=== PATIENT | male | born 1955 | race Caucasian/White ===

== ENCOUNTER 2020-04-15 11:47 | Outpatient (REF) | payer MEDICARE, SELFPAY ==
[2020-04-15 14:14] LABS: Alanine Aminotransferase 75 U/L (0-40); Albumin Level 4.7 g/dL (3.5-5.0); Alkaline Phosphatase 102 U/L (39-117); Anion Gap 15 (12-20); Aspartate Amino Transferase 46 U/L (5-37); Bilirubin Direct 0.3 mg/dL (0.0-0.5); Bilirubin Total 0.6 mg/dL (0.0-1.0); Blood Urea Nitrogen 18 mg/dL (9-16); Carbon Dioxide 27 mmol/L (22-29); Chloride 100 mmol/L (96-108); Estimated Glomerular Filt Rate > 60; Potassium 5.2 mmol/l (3.3-5.1); Sodium 137 mmol/L (135-145); Total Protein 8.2 g/dL (6.5-8.0)
== END 2020-04-15 11:48 | disposition home or self-care (01) ==
LOC: HO.LAB 11:47
PROVIDERS: PCP Family Medicine; Visit Provider Family Medicine
DX: R79.89 Other specified abnormal findings of blood chemistry (principal); I10 Essential (primary) hypertension
CPT/HCPCS: 80051; 80076; 82565; 84520

== ENCOUNTER 2020-11-04 12:10 | Outpatient (REF) | payer MEDICARE, SELFPAY ==
[2020-11-04 14:06] LABS: Anion Gap 15 (12-20); Blood Urea Nitrogen 16 mg/dL (9-16); Calcium 9.7 mg/dL (8.4-10.2); Carbon Dioxide 28 mmol/L (22-29); Chloride 100 mmol/L (96-108); Estimated Glomerular Filt Rate > 60; Glucose Random 103 mg/dL (60-115); Potassium 4.5 mmol/L (3.3-5.1); Sodium 138 mmol/L (135-145)
== END 2020-11-04 12:11 | disposition home or self-care (01) ==
LOC: HO.LAB 12:10
PROVIDERS: PCP Family Medicine; Visit Provider Internal Medicine Cardiovascular Disease
DX: I48.0 Paroxysmal atrial fibrillation (principal); I10 Essential (primary) hypertension; Z79.899 Other long term (current) drug therapy
CPT/HCPCS: 36415; 80048; 93005

== ENCOUNTER 2021-03-19 08:39 | Outpatient (REF) | payer MEDICARE, SELFPAY ==
[2021-03-19 09:30] LABS: Alanine Aminotransferase 85 U/L (0-40); Albumin Level 4.3 g/dL (3.5-5.0); Alkaline Phosphatase 92 U/L (39-117); Aspartate Amino Transferase 60 U/L (5-37); Bilirubin Direct 0.2 mg/dL (0.0-0.5); Bilirubin Total 0.3 mg/dL (0.0-1.0); Iron 74 mcg/dL (45-160); Percent Iron Saturation 21 % (15-50); Total Iron Binding Capacity 349 mcg/dL (228-428); Total Protein 7.5 g/dL (6.5-8.0); Unsaturated Iron Binding 275 ug/dL
[2021-03-19 09:53] LABS: Ferritin 441 ng/mL (20-250); TSH reflex Free T4 2.54 uIU/mL (0.32-4.0)
[2021-03-20 14:56] LABS: Immunoglobulin A 393 mg/dL (70-320)
[2021-03-24 10:06] LABS: Gliadin Deamidated IgA Ab 30.4 U/mL; Gliadin Deamidated IgG Ab 15.6 U/mL; Transglutaminase Ab IgG <1.0 U/mL; Transglutaminase IgA <1.0 U/mL
[2021-03-27 11:26] LABS: Endomysial IgA Antibody Negative (Negative)
== END 2021-03-19 08:40 | disposition home or self-care (01) ==
LOC: HO.LAB 08:39
PROVIDERS: PCP Family Medicine; Visit Provider Internal Medicine
DX: K76.0 Fatty (change of) liver, not elsewhere classified (principal); R74.8 Abnormal levels of other serum enzymes; R53.83 Other fatigue; K58.2 Mixed irritable bowel syndrome
CPT/HCPCS: 36415; 80076; 82728; 82784; 83516; 83540; 84443; 86255; 86256

== ENCOUNTER 2021-04-21 11:45 | Day surgery (SDC) | payer MEDICARE, SELFPAY ==
[2021-04-15 13:23] VITALS: BMI 30.9
--- NOTE | 2021-04-18 11:05 | HO.ANESPROP2 ---
Documented by User: Patricia Brown NP 04/18/21 11:06 HPI - Anesthesia Eval Consult details Narrative: 65yo M for Upper Endoscopy Xarelto for afib PMFSH Active Problems Active Problems: All Active Problems (Updated 11/04/20 @ 12:40 by Silvestre Macias MD) HTN (hypertension) (Acute) Paroxysmal atrial fibrillation (Acute) Past Medical History Medical History (Updated 04/18/21 @ 11:06 by Patricia Brown NP) Depression HTN (hypertension) IBS (irritable bowel syndrome) Paroxysmal atrial fibrillation Family History Family History Father Diabetes Mother No problems noted. Surgical History Surgical History History of cardiac radiofrequency ablation Hx of sinus surgery Hx of tonsillectomy Social History Social History Patient Tobacco Use Status: Former Tobacco user Use of substances other than those prescribed or required for medical reasons: No Have you been hit, kicked, punched, or otherwise hurt by someone within the past year? If so, by whom?: No Are you DNR?: No Advance Directives: No Advance Directives Information Provided: Yes Recently lost weight without trying: No Nutrition Risks: No Nutritional Risk Meds Allergies Allergy/AdvReac Type Severity Reaction Status Date / Time latex [LATEX] Allergy Intermediate RASH Verified 04/21/21 13:25 Home Medications Medication Instructions Recorded Confirmed Last Taken Type lisinopril 20 mg tablet 20 mg PO DAILY 11/04/20 11/04/20 04/21/21 History metoprolol succinate 50 mg 50 mg PO DAILY 11/04/20 11/04/20 04/21/21 History tablet,extended release 24 hr sertraline 50 mg tablet 50 mg PO DAILY 11/04/20 11/04/20 04/21/21 History Exam Exam Date and Time: April 18, 2021 1105 Height,Weight and Vital Signs: Height 6 ft 0.5 in Weight 104.78 kg Pertinent Lab Results Pertinent Lab Results: Laboratory Tests 05/05/18 11/04/20 09:23 13:26 WBC 5.4 Hgb 15.0 Hct 43.2 Plt Count 179 Sodium 138 Potassium 4.5 Chloride 100 Carbon Dioxide 28 BUN 16 Creatinine 1.06 Narrative Narrative: EKG 10/2020 Sinus bradycardia at 51 beats per minute with normal axis and normal intervals Assessment and Plan Assessment Anesthesia Assessment: Chart Reviewed Documented by User: Vilma Shane MD 04/21/21 13:53 COUNT INCLUDES THE [facility] Past Medical History Medical History (Updated 04/18/21 @ 11:06 by Patricia Brown NP) Depression HTN (hypertension) IBS (irritable bowel syndrome) Paroxysmal atrial fibrillation Family History Family History Father Diabetes Mother No problems noted. Family history of problems with anesthesia: No Surgical History Surgical History History of cardiac radiofrequency ablation Hx of sinus surgery Hx of tonsillectomy History of Problems with Anesthesia: No Social History Social History Patient Tobacco Use Status: Former Tobacco user Use of substances other than those prescribed or required for medical reasons: No Have you been hit, kicked, punched, or otherwise hurt by someone within the past year? If so, by whom?: No Are you DNR?: No Advance Directives: No Advance Directives Information Provided: Yes Recently lost weight without trying: No Nutrition Risks: No Nutritional Risk Meds Allergies Allergy/AdvReac Type Severity Reaction Status Date / Time latex [LATEX] Allergy Intermediate RASH Verified 04/21/21 13:25 Home Medications Medication Instructions Recorded Confirmed Last Taken Type lisinopril 20 mg tablet 20 mg PO DAILY 11/04/20 11/04/20 04/21/21 History metoprolol succinate 50 mg 50 mg PO DAILY 11/04/20 11/04/20 04/21/21 History tablet,extended release 24 hr sertraline 50 mg tablet 50 mg PO DAILY 11/04/20 11/04/20 04/21/21 History Exam Airway Mallampati Class: II (Poor dentition) TM Dist: >3cm Neck ROM: Full Heart: rrr Lungs: cta Assessment and Plan Assessment Anesthesia Assessment: Anesthesia Plan Discussed and Chart Reviewed Final Anesthetic Review Family History of Problems with Anesthesia: No History of Problems with Anesthesia: No NPO: Yes ASA Class: III Final Preanesthetic Review: No Changes in Pt Med Stat, Meds/Allgs Chart Reviewed and Consent Obtained/Reviewed Patient Risk: Intermediate Procedure Risk: Intermediate Anesthetic Plan Anesthetic Plan: MAC: Disposition: Standard PACU
[2021-04-21 12:54] VITALS: PULSE 58; RESP 18; TEMP 36.6; O2SAT 97; BMI 30.1
[2021-04-21] MEDS: Lactated Ringers 1,000 ML 100 ML IVCONT (13:26)
[2021-04-21 14:55] VITALS: BP 105/53; PULSE 55; RESP 15; TEMP 37.7; O2SAT 97
--- NOTE | 2021-04-21 14:59 | P.BOP_ITS ---
Brief Operative Note Date of Service: 04/21/21 Pre-op diagnosis: R/O Celiac disease Post-op diagnosis: other (Gastritis, GERD, Hiatal hernia) Procedure: EGD with biopsies Surgeon: Jayson Carlson Anesthesia: MAC Was an Frame Pulley Mortising Machine Operator used for this Procedure?: No Estimated blood loss (mL): 2.0 Pathology: other (A. Descending duodenum B. Gastric antrum C. EG Junction at 40cm) Condition: stable Disposition: PACU
[2021-04-21 15:10] VITALS: BP 134/73; PULSE 54; RESP 18; TEMP 37.2; O2SAT 96
--- NOTE | 2021-04-21 20:11 | OP_ITS ---
SURGEON: Jayson Carlsno MD INDICATIONS: The patient presents for evaluation of irregular bowel movements, abdominal discomfort, and elevated celiac disease laboratory. Full consent has been obtained from him for this, including risks of bleeding and perforation. PREOPERATIVE DIAGNOSIS: POSTOPERATIVE DIAGNOSIS: PROCEDURE PERFORMED: Esophagogastroduodenoscopy with biopsies. ESTIMATED BLOOD LOSS: COMPLICATIONS: ANESTHESIA: Monitored anesthesia care. ASSISTANTS: SPECIMENS: PREOPERATIVE DIAGNOSES: Irritable bowel syndrome and irregular bowel movements, abdominal discomfort, and abnormal celiac disease laboratory. POSTOPERATIVE DIAGNOSES: Irritable bowel syndrome and irregular bowel movements, abdominal discomfort, and abnormal celiac disease laboratory, small hiatal hernia, gastroesophageal reflux, gastritis, rule out celiac disease. DESCRIPTION OF PROCEDURE: The patient was placed in the left lateral decubitus position. The Olympus video gastroscope was passed in the posterior oropharynx and upper esophagus under direct vision. The scope was passed slowly into the distal esophagus. The gastroesophageal junction appeared at 40 cm. This area was notable for some edema, friability, erythema, and some slightly irregular margins at the EG junction. There was no definite Carl's esophagus. The scope entered into the stomach. There was a small hiatal hernia. The scope was advanced to pylorus and the duodenum was cannulated to the descending portion. The duodenum including the bulb appeared normal without mass or ulceration. Biopsies were obtained from the second and third portions of duodenum. The scope was withdrawn back in the stomach. The gastric antrum had areas of erythema, edema, less than 10 mm erosions, and some friability. There were no ulcerations, masses, nor other abnormalities. There was good peristalsis. The scope was retroflexed visualizing the proximal stomach carefully which appeared normal, without any sign of mass or ulceration. The scope was straightened. Biopsies were obtained from the gastric antrum. Scope was withdrawn back into the esophagus. Biopsies were obtained at the EG junction at 40 cm. Proximal to this, the esophageal mucosa appeared normal. The scope was withdrawn from the patient. He tolerated the procedure well and was returned to the recovery area in stable condition. IMPRESSION: 1. Erosive gastritis. 2. Rule out celiac disease. 3. Hiatal hernia, gastroesophageal reflux. PLAN: The results of the biopsies will be checked. Given these findings, I shall start him on a course of omeprazole 20 mg daily. If the duodenal biopsies do show evidence of celiac disease, he would then start a gluten free diet. In the meantime, he will continue to try to watch his diet carefully and stay on a lactose-free diet. He is also using Metamucil and a stool softener. He is scheduled for an abdominal ultrasound later this month as well. He will be seen in followup in 2021. This has been discussed with his . MD AUREA Hopper/ALEX / [id number]
== END 2021-04-21 15:59 | disposition home or self-care (01) ==
PROVIDERS: PCP Family Medicine; Visit Provider Internal Medicine
PROC: 0DJ08ZZ Inspection of Upper Intestinal Tract, Via Natural or Artificial Opening Endoscopic (ICD-10-PCS; CPT 43235; principal; 2021-04-21 13:20)
DX: R19.4 Change in bowel habit (principal); R10.9 Unspecified abdominal pain; R76.8 Other specified abnormal immunological findings in serum; K58.9 Irritable bowel syndrome, unspecified; K21.9 Gastro-esophageal reflux disease without esophagitis; K29.50 Unspecified chronic gastritis without bleeding; K44.9 Diaphragmatic hernia without obstruction or gangrene; I10 Essential (primary) hypertension; I48.0 Paroxysmal atrial fibrillation; Z79.01 Long term (current) use of anticoagulants; Z79.899 Other long term (current) drug therapy; Z91.040 Latex allergy status; Z87.891 Personal history of nicotine dependence
CPT/HCPCS: 43239; 88305; 88342

== ENCOUNTER 2021-05-05 10:52 | Outpatient (REF) | payer MEDICARE, SELFPAY ==
--- NOTE | ~2021-05-05 | US_ITS ---
EXAMINATION: US COMPLETE ABDOMEN WITH LIVER ELASTOGRAPHY CLINICAL INFORMATION: Fatty liver COMPARISON: None. TECHNIQUE: Real-time imaging of the abdominal viscera. Noninvasive ultrasound liver fibrosis assessment is performed using Margret ElastPQ point quantification shear wave elastography (pSWE) with a C5-2 MHz transducer. Multiple elastography samples are obtained. FINDINGS: PANCREAS: Normal. The visualized pancreatic head and body are normal in appearance. The remainder of the pancreas is obscured from visualization by the overlying bowel gas. ABDOMINAL AORTA: The proximal, middle, and distal aortic segments are normal in caliber. INFERIOR VENA CAVA: Visualized portions are normal. LIVER: The liver demonstrates normal size, contour and increased echogenicity. No focal lesion or intrahepatic biliary duct dilatation. The right lobe measures 16.0 cm in length. The left lobe measures 12.0 cm in length. Portal flow is towards the liver (hepatopetal). Shear wave liver elastography median stiffness is 1.86 m/s (reference: normal median stiffness is 1.3 m/s or less). IQR/median stiffness to assess sampling precision is 0.10 (reference: good quality data set is IQR/median stiffness of 0.15 or less). GALLBLADDER: Normal. The gallbladder is physiologically distended without evidence of stones, sludge, polyps, wall thickening or pericholecystic fluid. COMMON BILE DUCT: Normal in caliber measuring 0.2 cm in diameter. RIGHT KIDNEY: Multiple simple renal cysts. No hydronephrosis. No renal calculi or focal parenchymal lesions. The kidney measures 12.0 cm in maximum dimension. LEFT KIDNEY: 0.9 cm simple renal cyst in the upper pole. No hydronephrosis. No renal calculi or focal parenchymal lesions. The kidney measures 12.0 cm in maximum dimension. SPLEEN: Normal. The spleen measures 11.0 cm in maximum dimension. FREE FLUID: None. US/US abdomen comp w elastography IMPRESSION: 1. Increased echogenicity of the liver. 2. Liver elastography: Measurements are suggestive of compensated advanced chronic liver disease but need further test for confirmation. 3. Bilateral simple renal cysts, no further follow-up is required. REFERENCE: Society of Radiologists in Ultrasound Liver Stiffness Thresholds (2020): LIVER STIFFNESS THRESHOLDS: *Liver Stiffness equal or less than 1.3 m/s: High probability of being normal. *Liver Stiffness less than 1.7 m/s: In the absence of other known clinical signs, rules out compensated advanced chronic liver disease. *Liver Stiffness 1.7-2.1 m/s: Suggestive of compensated advanced chronic liver disease but need further test for confirmation. *Liver Stiffness over 2.1 m/s: Rules in compensated advanced chronic liver disease. *Liver Stiffness over 2.4 m/s: Suggestive of clinically significant portal hypertension. QUALITY OF DATA SET: *IQR/Median value equal or less than 0.15 implies a quality data set. *IQR/Median value over 0.15 implies a poor quality data set. SIGNIFICANT CHANGE FROM PRIOR EXAM: Significant change if liver stiffness measurement is 10% or greater from prior exam. OTHER CONSIDERATIONS: The stage of liver fibrosis may be overestimated in the setting of acute hepatitis, liver inflammation, elevated liver function tests, hepatic vascular congestion, obstructive cholestasis, non-fasting state, and infiltrative diseases such as amyloidosis and lymphoma. In some patients with NAFLD, the liver stiffness thresholds for compensated advanced chronic liver disease may be lower. In causes other than viral hepatitis and NAFLD, liver stiffness thresholds are not well established.
== END 2021-05-05 10:53 | disposition home or self-care (01) ==
LOC: HO.US 10:52
PROVIDERS: PCP Family Medicine; Visit Provider Internal Medicine
DX: K76.0 Fatty (change of) liver, not elsewhere classified (principal)
CPT/HCPCS: 76705; 76981

== ENCOUNTER → 2021-05-08 14:12 | Outpatient (BNVA) | payer MEDICARE, SELFPAY | PROVIDERS: PCP Family Medicine; Visit Provider Internal Medicine | DX: I48.0 Paroxysmal atrial fibrillation (principal); Z51.81 Encounter for therapeutic drug level monitoring; Z79.01 Long term (current) use of anticoagulants | CPT/HCPCS: 85610; 99202 ==

== ENCOUNTER → 2021-05-21 08:27 | Outpatient (BNVA) | payer MEDICARE, SELFPAY | PROVIDERS: PCP Family Medicine; Visit Provider Internal Medicine | DX: I48.0 Paroxysmal atrial fibrillation (principal); Z51.81 Encounter for therapeutic drug level monitoring; Z79.01 Long term (current) use of anticoagulants | CPT/HCPCS: 85610; 99211 ==

== ENCOUNTER → 2021-05-26 08:42 | Outpatient (BNVA) | payer MEDICARE, SELFPAY | PROVIDERS: PCP Family Medicine; Visit Provider Internal Medicine | DX: I48.0 Paroxysmal atrial fibrillation (principal); Z51.81 Encounter for therapeutic drug level monitoring; Z79.01 Long term (current) use of anticoagulants | CPT/HCPCS: 85610; 99211 ==

== ENCOUNTER → 2021-05-29 08:16 | Outpatient (REF) | payer MEDICARE, SELFPAY ==
--- NOTE | 2021-05-29 08:19 | CA_ITS ---
Transthoracic Echocardiogram Patient (Last, First, Middle): Ori Tidwell J Gender: Male Date of : 1955 Age: 65 Procedure Date: 05/29/2021 Procedure Type: Transthoracic Echocardiogram Location: OP Height: 185.42 cm Weight: 102.06 kg BSA: 2.26 m2 Heart Rate: bpm BP: 127 / 78 mmHg Sewing Machine Attachment Tester: [id number] Referring MD: Silvestre Macias MD Symptoms: I48.0 - Paroxysmal atrial fibrillation Study Quality: Fair ECG Rhythm: Sinus Conclusions: - The left ventricular systolic function is normal. The calculated ejection fraction is 65% by biplane method. - [id number] basal septal hypertrophy. - There is mild mitral valve regurgitation. - There is mild tricuspid valve regurgitation. - Mild pulmonary hypertension is present. Findings Left Ventricle Normal left ventricular cavity size. The left ventricular systolic function is normal. The calculated ejection fraction is 65% by biplane method. There is no evidence of regional wall motion abnormalities. Diastolic function is normal for age. LV peak GLS -18.1%. [id number] basal septal hypertrophy. Right Ventricle Normal right ventricular cavity size and systolic function. Atria Both atria are normal in size. Aortic Valve There is a normal trileaflet aortic valve. There is no aortic valve stenosis. There is no aortic valve regurgitation. Mitral Valve The mitral valve appears normal. There is mild mitral valve regurgitation. There is no mitral valve stenosis. Pulmonic Valve The pulmonic valve was not well visualized. There is trace pulmonic valve regurgitation. Tricuspid Valve Normal tricuspid valve structure. There is mild tricuspid valve regurgitation. The right ventricular systolic pressure is 38 mmHg. Mild pulmonary hypertension is present. Great Vessels The aortic annulus, sinuses of valsalva, and asc aorta are normal in size. Venous The inferior vena cava is normal in size and collapses greater than 50% with inspiration. Pericardium/Pleural There is no evidence of pericardial effusion. Prior Study Comparison No significant change compared to prior study dated: 02/03/2017. Measurements 2D Linear Measurements IVSd: 1.48 0.6-0.9/0.6-1.0 cm LVIDd: 4.82 3.9-5.3/4.2-5.9 cm LVIDd Index: 2.13 2.4-3.2/2.2-3.1 cm/m2 LVIDs: 2.81 2.0-3.6 cm LVPWd: 0.98 0.7-1.1 cm Ao Root: 2.80 2.1-3.5 cm LA Diam: 4.00 2.7-3.8/3.0-4.0 cm LAIDs Index: 1.77 1.5-2.3 cm/m2 LV Mass: 284.97 67-162/88-224 g LV Mass Index: 126.09 43-95/49-115 g/m2 LVOT Diam: 2.10 3.0+(-)1.3 cm 2D Systolic Function EF 4C: 67.90 >55% EF 2C: 61.30 >55% EF BiP: 64.70 >55% Mitral Valve MV Pk E: 1.05 MV PK A: 0.35 MV Decel Time: 217.00 E/A: 3.00 E'Lateral: 10.00 E'Medial: 6.64 E/E' Med: 15.80 E/E' Lat: 10.50 PHT: 63.00 MVA PHT: 3.49 Decel [place]: 4.87 Aortic Valve AoV Pk [place]: 1.56 AoV Pk Grad: 10.00 LVOT LVOT Pk [place]: 1.14 LVOT Mn [place]: 0.78 LVOT VTI: 0.25 LVOT Pk Grad: 5.00 LVOT Mn Grad: 3.00 LVOT Diam: 2.10 LVOT Area: 3.46 Diastolic Function MV Pk E: 1.05 MV Pk A: 0.35 E/A: 3.00 E'Medial: 6.64 E/E' Med: 15.80 E' Laterial: 10.00 E/E' Lat: 10.50 Right Ventricle TAPSE (mm): 2.23 TVS' [place]: 14.70 Tricuspid Valve TR Pk [place]: 2.97 TR Pk Grad: 35.00 RA Press: 3.00 RVSP: 38.00 Great Vessels Aorta Ao Root-2D: 2.80 2.0-3.7 cm Ao Asc: 3.60 2.1-3.4 cm Updated in Other Vendor System with Status of Final Perez Boyer MD electronically signed on 05/31/2021 1:05:19 PM with status of Final
== END ==
LOC: HO.CARD 08:16
PROVIDERS: Visit Provider Internal Medicine Cardiovascular Disease
DX: I48.0 Paroxysmal atrial fibrillation (principal)
CPT/HCPCS: 93306; 93356

== ENCOUNTER → 2021-06-02 08:27 | Outpatient (BNVA) | payer MEDICARE, SELFPAY | PROVIDERS: PCP Family Medicine; Visit Provider Internal Medicine | DX: I48.0 Paroxysmal atrial fibrillation (principal); Z51.81 Encounter for therapeutic drug level monitoring; Z79.01 Long term (current) use of anticoagulants | CPT/HCPCS: 85610; 99211 ==

== ENCOUNTER → 2021-06-05 08:28 | Outpatient (BNVA) | payer MEDICARE, SELFPAY | PROVIDERS: PCP Family Medicine; Visit Provider Internal Medicine | DX: I48.0 Paroxysmal atrial fibrillation (principal); Z51.81 Encounter for therapeutic drug level monitoring; Z79.01 Long term (current) use of anticoagulants | CPT/HCPCS: 85610; 99211 ==

== ENCOUNTER → 2021-06-06 08:56 | Outpatient (BNVA) | payer MEDICARE, SELFPAY | PROVIDERS: PCP Family Medicine; Visit Provider Internal Medicine Cardiovascular Disease | DX: I48.0 Paroxysmal atrial fibrillation (principal); I10 Essential (primary) hypertension | CPT/HCPCS: 93005; 99212 ==

== ENCOUNTER → 2021-06-16 08:20 | Outpatient (BNVA) | payer MEDICARE, SELFPAY | PROVIDERS: PCP Family Medicine; Visit Provider Internal Medicine | DX: I48.0 Paroxysmal atrial fibrillation (principal); Z51.81 Encounter for therapeutic drug level monitoring; Z79.01 Long term (current) use of anticoagulants | CPT/HCPCS: 85610; 99211 ==

== ENCOUNTER 2021-11-05 10:07 | Outpatient (REF) | payer MEDICARE, SELFPAY ==
--- NOTE | ~2021-11-05 | XR_ITS ---
EXAMINATION: XR HAND, LEFT CLINICAL INFORMATION: Laceration COMPARISON: None TECHNIQUE: PA, lateral, and oblique views of the left hand. FINDINGS: There is a comminuted fracture of the distal phalanx of the third finger. There is a volar displaced fracture fragment. There is overlying soft tissue swelling. No soft tissue foreign body is seen. No other fracture is seen. Joint spaces are normal. XR/XR hand LT min 3V IMPRESSION: Comminuted minimally displaced fracture of the distal phalanx of the left third finger and adjacent volar soft tissue swelling.
[2021-11-05 11:56] LABS: Alanine Aminotransferase 96 U/L (0-40); Albumin Level 4.2 g/dL (3.5-5.0); Alkaline Phosphatase 109 U/L (39-117); Aspartate Amino Transferase 90 U/L (5-37); Bilirubin Direct 0.3 mg/dL (0.0-0.5); Bilirubin Total 0.7 mg/dL (0.0-1.0); Iron 97 mcg/dL (45-160); Percent Iron Saturation 26 % (15-50); Total Iron Binding Capacity 367 mcg/dL (228-428); Total Protein 7.7 g/dL (6.5-8.0); Unsaturated Iron Binding 270 ug/dL
[2021-11-05 12:19] LABS: Ferritin 460 ng/mL (20-250)
[2021-11-10 06:11] LABS: FIB-ALT 81 U/L (9-46); FIB-Alpha-2-Macroglobulin 223 mg/dL (106-279); FIB-Apolipoprotein A1 181 mg/dL (94-176); FIB-GGT 192 U/L (3-70); FIB-Haptoglobin 117 mg/dL (43-212); FIB-Total Bilirubin 0.7 mg/dL (0.2-1.2); Liver Fibrosis Score 0.54; Liver Fibrosis Stage F2; Nec Inflam Act Grade A2; Nec Inflam Act Score 0.57
== END 2021-11-05 10:08 | disposition home or self-care (01) ==
LOC: HO.HMGCX 10:07
PROVIDERS: Absent Provider Internal Medicine; PCP Family Medicine; Visit Provider Physician Assistant
DX: S61.219A Laceration without foreign body of unspecified finger without damage to nail, initial encounter (principal); K76.0 Fatty (change of) liver, not elsewhere classified; R74.8 Abnormal levels of other serum enzymes
CPT/HCPCS: 36415; 73130; 80076; 81596; 82728; 83540

== ENCOUNTER 2021-11-10 07:03 | Day surgery (SDC) | payer MEDICARE, SELFPAY ==
[2021-10-09 11:26] VITALS: BMI 30.9
[2021-10-31 19:47] VITALS: BMI 29.4
--- NOTE | 2021-11-07 12:45 | HO.ANESPROP2 ---
Documented by User: Patricia Brown NP 11/07/21 12:47 HPI - Anesthesia Eval Consult details Narrative: 65yo M for Colonoscopy Eliquis for afib PMFSH Active Problems Active Problems: All Active Problems (Updated 10/31/21 @ 19:47 by Katia Arellano RN) Paroxysmal atrial fibrillation (Acute) HTN (hypertension) (Acute) Current use of anticoagulant therapy (Acute) Past Medical History Medical History Arthritis Current use of anticoagulant therapy Depression Fatty liver GERD (gastroesophageal reflux disease) HTN (hypertension) IBS (irritable bowel syndrome) Paroxysmal atrial fibrillation Family History Family History Father Diabetes Mother No problems noted. Family history of problems with anesthesia: No Surgical History Surgical History H/O colonoscopy History of cardiac radiofrequency ablation History of esophagogastroduodenoscopy (EGD) Hx of eye surgery Hx of sinus surgery Hx of tonsillectomy History of Problems with Anesthesia: No Social History Social History Housing: House Housing Other:: with spouse / children grown Alcohol intake: current (wine 2-3 glasses per evening / and occ beer ) Alcohol intake frequency: a few times a week Patient Tobacco Use Status: Former Tobacco user Quit Date: 1987 Use of substances other than those prescribed or required for medical reasons: No Are you DNR?: No Advance Directives: No Advance Directives Information Provided: No Advance Directives on File: No Recently lost weight without trying: No Nutrition Risks: No Nutritional Risk Current occupation: retiered Current occupational exposures/hazards: No Meds Allergies Allergy/AdvReac Type Severity Reaction Status Date / Time latex [LATEX] Allergy Intermediate RASH Verified 11/10/21 07:45 Home Medications Medication Instructions Recorded Confirmed Last Taken Type lisinopril 20 mg tablet 20 mg PO DAILY 11/04/20 10/09/21 04/21/21 History metoprolol succinate 50 mg 50 mg PO DAILY 11/04/20 10/09/21 11/10/21 History tablet,extended release 24 hr sertraline 50 mg tablet 50 mg PO DAILY 11/04/20 10/09/21 04/21/21 History acetaminophen 500 mg capsule 500 mg PO Q6H PAIN 05/08/21 10/31/21 Unknown History docusate sodium 100 mg PO DAILY 05/08/21 10/31/21 Unknown History omeprazole 20 mg capsule,delayed 20 mg PO DAILY 05/08/21 10/09/21 11/10/21 History release psyllium [Metamucil] 100 g PO BID 06/06/21 06/16/21 Unknown History Exam Exam Date and Time: November 07, 2021 1245 Height,Weight and Vital Signs: Height 6 ft 0.5 in Weight 99.79 kg Narrative Narrative: EKG 05/2021 sinus bradycardia at 55 beats per minute with normal axis and normal intervals with QRS duration of 96 milliseconds ECHO 05/2021 Conclusions: - The left ventricular systolic function is normal.? The ? calculated ejection fraction is 65% by biplane method. ? - Hloy-lp-avdkxreu basal septal hypertrophy. ? - There is mild mitral valve regurgitation.? - There is mild tricuspid valve regurgitation. ? - Mild pulmonary hypertension is present.? ? Assessment and Plan Assessment Anesthesia Assessment: Chart Reviewed Final Anesthetic Review Family History of Problems with Anesthesia: No History of Problems with Anesthesia: No Documented by User: Theresa Heath MD 11/10/21 08:18 [facility] Past Medical History Medical History Arthritis Current use of anticoagulant therapy Depression Fatty liver GERD (gastroesophageal reflux disease) HTN (hypertension) IBS (irritable bowel syndrome) Paroxysmal atrial fibrillation Family History Family History Father Diabetes Mother No problems noted. Surgical History Surgical History H/O colonoscopy History of cardiac radiofrequency ablation History of esophagogastroduodenoscopy (EGD) Hx of eye surgery Hx of sinus surgery Hx of tonsillectomy Social History Social History Housing: House Housing Other:: with spouse / children grown Alcohol intake: current (wine 2-3 glasses per evening / and occ beer ) Alcohol intake frequency: a few times a week Patient Tobacco Use Status: Former Tobacco user Quit Date: 1987 Use of substances other than those prescribed or required for medical reasons: No Are you DNR?: No Advance Directives: No Advance Directives Information Provided: No Advance Directives on File: No Recently lost weight without trying: No Nutrition Risks: No Nutritional Risk Current occupation: retiered Current occupational exposures/hazards: No Meds Allergies Allergy/AdvReac Type Severity Reaction Status Date / Time latex [LATEX] Allergy Intermediate RASH Verified 11/10/21 07:45 Home Medications Medication Instructions Recorded Confirmed Last Taken Type lisinopril 20 mg tablet 20 mg PO DAILY 11/04/20 10/09/21 04/21/21 History metoprolol succinate 50 mg 50 mg PO DAILY 11/04/20 10/09/21 11/10/21 History tablet,extended release 24 hr sertraline 50 mg tablet 50 mg PO DAILY 11/04/20 10/09/21 04/21/21 History acetaminophen 500 mg capsule 500 mg PO Q6H PAIN 05/08/21 10/31/21 Unknown History docusate sodium 100 mg PO DAILY 05/08/21 10/31/21 Unknown History omeprazole 20 mg capsule,delayed 20 mg PO DAILY 05/08/21 10/09/21 11/10/21 History release psyllium [Metamucil] 100 g PO BID 06/06/21 06/16/21 Unknown History Exam Airway Mallampati Class: II TM Dist: >3cm Neck ROM: Full Loose/Missing/Broken Teeth: No Heart: RRR Lungs: CTA Assessment and Plan Assessment Anesthesia Assessment: Anesthesia Plan Discussed Final Anesthetic Review NPO: Yes ASA Class: III Final Preanesthetic Review: Meds/Allgs Chart Reviewed, Consent Obtained/Reviewed and Anes Risks/Benef Reviewed Patient Risk: Intermediate Procedure Risk: Low Anesthetic Plan Anesthetic Plan: MAC: Disposition: Standard PACU
[2021-11-10 07:29] VITALS: BP 145/91; PULSE 66; RESP 18; TEMP 37; O2SAT 97
[2021-11-10] MEDS: Lactated Ringers 1,000 ML 100 ML IVCONT (07:32)
[2021-11-10 09:23] VITALS: BP 80/51; PULSE 53; RESP 16; TEMP 36.3; O2SAT 95
--- NOTE | 2021-11-10 09:28 | PM.OP ---
Brief Operative Note Date of Service: 11/10/21 Pre-op diagnosis: Screening Post-op diagnosis: other (Colon polyps) Procedure: Colonoscopy to the cecum and TI with bx/removal of polyps Surgeon: Jayson Carlson Anesthesia: MAC Was an Contract Post Office Clerk used for this Procedure?: No Estimated blood loss (mL): 2.0 Pathology: other (A. Ascending colon polyp B. Polyp at 50cm C. Polyp at 20cm) Condition: stable Disposition: PACU
[2021-11-10 09:38] VITALS: BP 93/60; PULSE 62; RESP 17; O2SAT 94
[2021-11-10 09:52] VITALS: BP 104/64; PULSE 58; RESP 18; TEMP 36.3; O2SAT 97
--- NOTE | 2021-11-10 12:16 | OP_ITS ---
SURGEON: Jayson Carlson MD INDICATIONS: The patient presents for evaluation of colorectal cancer screening and personal history of tubular adenoma of the colon. Full consent has been obtained from him for this, including risks of bleeding and perforation. PREOPERATIVE DIAGNOSIS: POSTOPERATIVE DIAGNOSIS: PROCEDURE PERFORMED: Colonoscopy to the cecum and terminal ileum with biopsy and removal of polyps. ESTIMATED BLOOD LOSS: COMPLICATIONS: ANESTHESIA: Monitored anesthesia care. ASSISTANTS: SPECIMENS: PREOPERATIVE DIAGNOSES: Colorectal cancer screening and personal history of tubular adenoma of the colon. POSTOPERATIVE DIAGNOSES: Colorectal cancer screening and personal history of tubular adenoma of the colon, small colon polyps, mild diverticulosis, internal hemorrhoids. DESCRIPTION OF PROCEDURE: The patient was placed in the left lateral decubitus position. The digital rectal exam revealed no abnormalities. The Olympus video pediatric colonoscope was entered into the rectum and advanced easily to the cecum. Once in the cecum, I did identify normal-appearing cecal pouch with appendiceal orifice and a normal-appearing ileocecal valve. The terminal ileum was cannulated and appeared normal. Scope was withdrawn back in the colon. The entire cecum and ileocecal valve appeared normal. The scope was slowly withdrawn assessing all mucosal surfaces carefully. Preparation was excellent. In the ascending colon, at 50 cm and at 20 cm were flat less than 5 mm polyps, which were all biopsied and completely removed with cold biopsy forceps. I did not visualize any other polyps, colitis, or angiodysplasia. There was a mild amount of sigmoid diverticulosis. In the rectum, scope was retroflexed visualizing small internal hemorrhoids, but no other pathology. The rectal mucosa appeared normal. The scope was straightened and withdrawn from the patient. He tolerated the procedure well and was returned to recovery area in stable condition. IMPRESSION: 1. Small colon polyps, status post biopsy removal. 2. Diverticulosis. 3. Internal hemorrhoids. PLAN: The results of the pathology will be checked. I would recommend a repeat colonoscopy in 5 years for further surveillance. He was advised to see me in the fall for a followup of his elevated LFTs and fatty liver. His most recent liver profile earlier this month revealed an AST of 90 and ALT of 96 compared to an AST of 60 and ALT of 85 last March. His ferritin was elevated at 460, although his iron saturation has been normal. I suspect the elevated ferritin is in relation to the elevated LFTs and does not reflect underlying hemochromatosis. He again has been advised to try to lose weight, watch his diet carefully, and avoid alcohol. If the LFTs remain significantly elevated at some point, he may need a liver biopsy. He was advised to resume his Eliquis in 48 hours. MD AUREA Hopper/ALEX / [id number]
== END 2021-11-10 10:58 | disposition home or self-care (01) ==
PROVIDERS: PCP Family Medicine; Visit Provider Internal Medicine
PROC: 0DJD8ZZ Inspection of Lower Intestinal Tract, Via Natural or Artificial Opening Endoscopic (ICD-10-PCS; CPT 45378; principal; 2021-11-10 08:30)
DX: Z12.11 Encounter for screening for malignant neoplasm of colon (principal); Z86.010 Personal history of colon polyps; D12.2 Benign neoplasm of ascending colon; D12.5 Benign neoplasm of sigmoid colon; K57.30 Diverticulosis of large intestine without perforation or abscess without bleeding; K64.8 Other hemorrhoids; K58.2 Mixed irritable bowel syndrome; K76.0 Fatty (change of) liver, not elsewhere classified; R74.8 Abnormal levels of other serum enzymes; F32.A Depression, unspecified; I10 Essential (primary) hypertension; I48.0 Paroxysmal atrial fibrillation; Z79.01 Long term (current) use of anticoagulants; Z79.899 Other long term (current) drug therapy
CPT/HCPCS: 45380; 88305

== ENCOUNTER 2021-11-21 09:22 | Outpatient (REF) | payer MEDICARE, SELFPAY ==
--- NOTE | ~2021-11-21 | XR_ITS ---
EXAMINATION: XR HAND, LEFT CLINICAL INFORMATION: Pain left hand. COMPARISON: None TECHNIQUE: PA, lateral, and oblique views of the left hand. FINDINGS: There is a small laceration seen through the phalangeal tuft third digit with mild soft tissue swelling. No visible acute fracture or dislocation seen. No additional abnormality seen. XR/XR hand LT min 3V IMPRESSION: Distal phalanx spiral fracture/laceration third digit with mild soft tissue swelling
== END 2021-11-21 09:23 | disposition home or self-care (01) ==
LOC: HO.HOSX 09:22
PROVIDERS: Visit Provider Orthopaedic Surgery
DX: S62.633B Displaced fracture of distal phalanx of left middle finger, initial encounter for open fracture (principal)
CPT/HCPCS: 73130; 99202

== ENCOUNTER → 2021-12-04 08:39 | Outpatient (BNVA) | payer MEDICARE, SELFPAY | PROVIDERS: PCP Family Medicine; Referring Provider Family Medicine; Visit Provider Internal Medicine Cardiovascular Disease | DX: R00.1 Bradycardia, unspecified (principal) | CPT/HCPCS: 93005 ==

== ENCOUNTER → 2022-06-09 08:40 | Outpatient (BNVA) | payer MEDICARE, SELFPAY | PROVIDERS: PCP Internal Medicine; Referring Provider Internal Medicine; Visit Provider Internal Medicine Cardiovascular Disease | DX: I48.0 Paroxysmal atrial fibrillation (principal); I10 Essential (primary) hypertension | CPT/HCPCS: 93005; 99212 ==

== ENCOUNTER 2022-08-25 08:48 | Outpatient (REF) | payer MEDICARE, SELFPAY ==
[2022-08-25 11:35] LABS: Appearance Urine Clear; Color Urine Yellow; Glucose Urine UA Negative (Negative); Leukocyte Esterase Urine Negative (Negative); Nitrite Urine Negative (Negative); Specific Gravity - Urine 1.025 (1.005-1.025); Urine Blood Negative (Negative); Urine Ketones Negative (Negative); Urine Protein Negative (Neg-Trace)
[2022-08-25 11:36] LABS: MANUAL DIFF FLAG NO
[2022-08-25 11:49] LABS: Basophils Percent Auto 0.4 % (0-2); Eosinophils Absolute Auto 0.5 X10*3/uL (0.0-0.4); Eosinophils Percent Auto 6.5 % (0-4); Hematocrit 40.4 % (42.0-52.0); Hemoglobin 14.1 g/dl (14.0-18.0); Imm Gran Abs Auto 0.01 X10*3/uL (0.00-0.03); Imm Gran Pct Auto 0.1 % (0.0-0.4); Lymphocytes Absolute Auto 1.8 X10*3/uL (1.2-4.9); Mean Corpuscular HGB Conc 34.9 g/dl (31.0-36.0); Mean Corpuscular Hemoglobin 30.8 pg (27.0-33.0); Mean Corpuscular Volume 88.2 fL (80.0-98.0); Mean Platelet Volume 11.2 fL (9.4-12.4); Monocytes Absolute Auto 0.7 X10*3/uL (0.1-1.2); Monocytes Percent Auto 8.9 % (2-11); Neutrophils Absolute Auto 4.5 x10*3/uL (2.0-8.3); Neutrophils Percent Auto 60.1 % (45-73); Platelet Count 180 X10*3/uL (160-400); Red Blood Count 4.58 X10*6/uL (4.60-5.80); Red Cell Distribution Width 12.8 % (11.0-16.0); White Blood Count 7.5 X10*3/uL (4.8-10.8)
[2022-08-25 12:05] LABS: Alanine Aminotransferase 76 U/L (0-40); Albumin Level 4.4 g/dL (3.5-5.0); Alkaline Phosphatase 102 U/L (39-117); Anion Gap 11 (12-20); Aspartate Amino Transferase 61 U/L (5-37); Bilirubin Total 1.3 mg/dL (0.0-1.0); Blood Urea Nitrogen 18 mg/dL (9-16); Calcium 9.5 mg/dL (8.4-10.2); Carbon Dioxide 29 mmol/L (22-29); Chloride 101 mmol/L (96-108); Cholesterol 267 mg/dL; Estimated Glomerular Filt Rate > 60; Glucose Fasting 147 mg/dL (60-99); Glucose Random 146 mg/dL (60-115); HDL Cholesterol 71 mg/dL; LDL Cholesterol Calculated 170 mg/dl; Potassium 4.2 mmol/L (3.3-5.1); Sodium 137 mmol/L (135-145); Total Protein 7.5 g/dL (6.5-8.0); Triglycerides 130 mg/dL
[2022-08-25 12:27] LABS: TSH reflex Free T4 1.56 uIU/mL (0.32-4.0)
== END 2022-08-25 08:49 | disposition home or self-care (01) ==
LOC: HO.HMGCLDS 08:48
PROVIDERS: PCP Internal Medicine; Visit Provider Internal Medicine
DX: E55.9 Vitamin D deficiency, unspecified (principal); I10 Essential (primary) hypertension; R30.0 Dysuria; I48.0 Paroxysmal atrial fibrillation
CPT/HCPCS: 36415; 80048; 80053; 80061; 81003; 82306; 84443; 85025

== ENCOUNTER 2022-08-26 09:50 | Outpatient (AMB) | payer MEDICARE, SELFPAY ==
--- NOTE | 2022-08-26 09:50 | A.OFFPC_ITS ---
Vital Signs 08/26/22 09:51 Height 6 ft 0.5 in Weight 236 lb BMI 31.5 BP 136/82 Blood Pressure Location Lt brachial Position Sitting Pulse 58 Pulse Source Pulse Oximeter Pulse Oximetry (%) 100 Intake Visit Reasons: 4m follow up Intake Note: Patient is here to follow up on 4 months. Staff Educator Required: No Allergies latex [LATEX] Allergy (Intermediate, Verified 12/29/22 11:23) RASH Medication List - Last Reconciled 08/26/22 by Cuong Morris MD acetaminophen 500 mg PO Q6H amlodipine 10 mg PO DAILY apixaban (Eliquis) 5 mg PO BID 90 days flecainide 100 mg PO Q12H 90 days lisinopril 20 mg PO DAILY metoprolol succinate ER 50 mg PO DAILY omeprazole 20 mg PO DAILY sertraline 50 mg PO DAILY Tobacco use date assessed: 08/26/22 Fall risk assessment: No Falls in past year Last assessed Fall Risk: 08/26/22 HPI 4m follow up HPI Details Patient comes in today for his follow up visit States that he has been experiencing a constant aching sensation over his right hip, right knee, leg and ankle for the past few months Is wondering if his symptoms are from some nerve damage in his hip or leg Also reports that he has a recurrent burning sensation in his left foot, especially over his toes, for a few months now and feels that they seem worse at night - states that his symptoms have waken him up from his sleep a few times in the middle of the night and he has a hard time getting comfortable Has also been experiencing frequent soreness over the balls of his feet lately and they are affecting his balance at times when he is walking or standing Does not recall any recent injury or trauma to his feet or to his right leg or hip Admits that he drinks about 2 to 3 servings/glasses of vodka or similar drinks daily, and that he has been doing this for years now He denies any headaches or dizziness Denies any chest pains, no SOB No nausea/vomiting, no abdominal pain No change in bowel habits noted Had his follow up labs done yesterday - to discuss his results [facility] Medical History (Updated 12/29/22 @ 11:42 by Cuong Morris MD) Arthritis Benign essential hypertension Current use of anticoagulant therapy Depression Diabetes mellitus Diabetic neuropathy Elevated LFTs Fatty liver GERD (gastroesophageal reflux disease) HTN (hypertension) IBS (irritable bowel syndrome) Obesity (BMI 30-39.9) Paroxysmal atrial fibrillation Pure hypercholesterolemia Surgical History H/O colonoscopy History of cardiac radiofrequency ablation History of esophagogastroduodenoscopy (EGD) Hx of eye surgery Hx of sinus surgery Hx of tonsillectomy Family History Father Diabetes Mother No problems noted. 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 1. Little interest or pleasure in doing things: not at all 2. Feeling down, depressed, or hopeless: not at all 3. Trouble falling or staying asleep, or sleeping too much: not at all 4. Feeling tired or having little energy: not at all 5. Poor appetite or overeating: not at all 6. Feeling bad about yourself - or that you are a failure or have let yourself or your family down: not at all 7. Trouble concentrating on things, such as reading the newspaper or watching television: not at all 8. Moving or speaking so slowly that other people could have noticed. Or the opposite - being so fidgety or restless that you have been moving around a lot more than usual: not at all 9. Thoughts that you would be better off or of hurting yourself in some way: not at all Total score: 0 Depression Screening Interpretation: Negative 46058 - PHQ-9 Billing: Yes Source: Developed by Drs. Jayson Daniel, Rosemarie Westbrook, Blake Reveles and colleagues, with an educational daly from [employer]. Thrive Questionnaire Declines Thrive assessment: No Date Thrive assessed: 08/26/22 I am a: Patient What is your living situation today?: I have a steady place to live Within the past 12 months, did the food you bought not last and you didn't have the money to get more?: Never true Within the past 12 months, did you worry whether your food would run out before you got money to buy more?: Never true Do you have trouble paying for medicines?: No Do you have trouble getting transportation to medical appointments?: No Do you have trouble paying your heating and electricity bill?: No Do you have trouble taking care of your child, family member or friend?: No Do you have trouble with day-to-day activities such as bathing, preparing meals, shopping, managing finances, etc.?: No Are you currently unemployed and looking for a job?: No Are you interested in more education?: No Currently or been in a relationship where the following occur: no concerns reported AUDIT C Alcohol Use Questionnaire (AUDIT-C) 1. How often do you have a drink containing alcohol?: 2-4 times a month 2. How many drinks containing alcohol do you have on a typical day when you are drinking?: 1 or 2 3. How often do you have six or more drinks on one occasion?: Never Total Score: 2 Score Reviewed/Action Taken: Yes (Is strongly advised to quit alcohol) ZI-7 AMB Questionnaire ZI-7 Date ZI - 7 assessed: 08/26/22 Feeling nervous, anxious, or on edge: 0 = Not at all Not being able to stop or control worryin = Not at all Worrying too much about different things: 0 = Not at all Trouble relaxin = Not at all Being so restless that it is hard to sit still: 0 = Not at all Becoming easily annoyed or irritable: 0 = Not at all Feeling afraid as if something awful might happen: 0 = Not at all Total ZI-7 score (0-4 normal; 5-9 mild; 10-14 moderate; 15-21 severe): 0 Source: Developed by Drs. Jayson Daniel, Rosemarie Westbrook, Blake Reveles and colleagues, with an educational daly from [employer]. Review of Systems Const Denies chills, Denies fatigue, Denies fever(s) and Denies headache(s) ENT Denies dysphagia, Denies dizziness, Denies otalgia, Denies headache(s), Denies odynophagia and Denies sore throat Card Denies chest pain, Denies palpitations and Denies dyspnea Resp Denies cough and Denies dyspnea GI Denies abdominal pain, Denies constipation, Denies dysphagia, Denies heartburn, Denies diarrhea, Denies nausea, Denies odynophagia and Denies vomiting Denies dysuria, Denies nocturia and Denies urinary frequency Musc Details: (+) frequent soreness over the balls of the feet bilaterally Reports back pain (over the lower back, on and off), Reports arthralgias (right hip and knee, on and off) and Reports radiating pain into limb (in the right leg - more of a constant aching sensation) Neuro Reports burning sensations (on and off in the left foot, especially over the toes), Denies dizziness and Denies headache(s) Endo Denies fatigue and Denies palpitations Physical exam (Primary Care) Vital Signs: Last Vital Signs Pulse 58 08/26/22 09:51 BP 136/82 08/26/22 09:51 Pulse Ox 100 08/26/22 09:51 BMI result Body Mass Index 31.5 Tobacco/Smoking Status: Tobacco use Status Tobacco use date assessed 08/26/22 08/26/22 09:56 Patient Tobacco Use Status Former Tobacco user 08/26/22 09:50 PHQ-9: PHQ-9 Score PHQ-9: Total score 0 08/26/22 12:27 Depression Screening Interpretation: Negative Thrive Assessment: Date of Thrive Assessment Date Thrive assessed 08/26/22 08/26/22 09:57 Currently or been in a relationship where the following occur: no concerns reported Const General: no acute distress and alert HENMT Ears: TM's normal bilaterally and EAC's normal Throat: Yes posterior oropharynx normal and Yes tonsils normal (no TP congestion) Neck Neck: Yes no lymphadenopathy and Yes supple Resp Auscultation: clear to auscultation bilaterally, no rales and no wheezes Cardio Rate: regular rate Rhythm: regular rhythm Heart sounds: no murmurs GI Palpation (GI): Soft to palpation and nontender Auscultation: normal bowel sounds Back/Spine/Pelvis Thoracic/Lumbar Spine: lumbar spinal tenderness (mild) Skin General skin exam: no rashes or lesions noted Extrem General: Yes no clubbing, cyanosis or edema Right lower extremity: foot Details: normal to inspection and no edema Left lower extremity: foot Details: normal to inspection Results AMB Hemoglobin A1c AMB Hemoglobin A1c 6.6 % Last Edit by KILO Dennis on 08/26/22 10:32 Results Reviewed Results Reviewed: Laboratory Last Values Hgb A1c (Clinic) 6.6 % (4.0-6.0) H 08/26/22 10:22 Laboratory Tests 08/25/22 08/25/22 08/25/22 08:54 08:54 09:00 WBC 7.5 Hgb 14.1 Hct 40.4 L Plt Count 180 Sodium 137 Potassium 4.2 Creatinine 1.01 Estimated GFR > 60 Fasting Glucose 147 H Calcium 9.5 AST 61 H ALT 76 H Triglycerides 130 Cholesterol 267 LDL Cholesterol, Calc 170 HDL Cholesterol 71 25-OH Vitamin D Total 20.0 TSH 1.56 Ur Specific Arnold 1.025 Urine Protein Negative Urine Glucose (UA) Negative Urine Blood Negative Assessment and Plan Assessment & Plan (1) Paroxysmal atrial fibrillation: Comment: sees Dr. Macias Code(s): I48.0 - Paroxysmal atrial fibrillation Plan: Patient is currently in sinus bradycardia S/P ablation; continue Fleicanidie 100 mg Q 12 hours and Metoprolol ER 50 mg QD Continue Eliquis 5 mg BID for thromboembolism prophylaxis Echocardiogram done in May 2021 showed normal LV systolic function with basal septal hypertrophy with mild mitral and tricuspid regurgitation and mild pulmonary hypertension Follow up with cardiology as scheduled (2) Benign essential hypertension: Code(s): I10 - Essential (primary) hypertension Plan: Reinforced low sodium diet - goal is systolic BP of at least 120 to 130 mm or less Continue Lisinopril 20 mg QD, Amlodipine 10 mg QD and Metoprolol ER 50 mg QD Will recheck labs in 4 months for follow up (3) Pure hypercholesterolemia: Code(s): E78.00 - Pure hypercholesterolemia, unspecified Plan: Results of his labs done yesterday reviewed and discussed with patient - is advised that his cholesterol level is very high, with his LDL cholesterol at 170 mg/dL Reinforced low-cholesterol diet Will recheck his labs in 4 months for follow-up - is advised that we will need to start him on some cholesterol-lowering medications if he still cannot get his cholesterol level improved significantly over the next few months (4) Elevated LFTs: Code(s): R79.89 - Other specified abnormal findings of blood chemistry Plan: Advised that his LFTs were significantly elevated on his labs done yesterday, most likely related to his alcohol use Reinforced abstinence and cessation of drinking Will recheck his labs and LFTs in 4 months for follow-up (5) Radicular pain of right lower extremity: Code(s): M54.10 - Radiculopathy, site unspecified Plan: Will send patient for x-rays of the lumbar spine, as well as EMG & NCV of the lower extremities, for further evaluation Will start him for now on Gabapentin 100 mg Q HS (6) Bilateral foot pain: Code(s): M79.671 - Pain in right foot; M79.672 - Pain in left foot Plan: Will send patient for x-rays of both feet for further evaluation (7) GERD (gastroesophageal reflux disease): Code(s): K21.9 - Gastro-esophageal reflux disease without esophagitis Qualifiers: Esophagitis presence: without esophagitis Qualified Code(s): K21.9 - Gastro-esophageal reflux disease without esophagitis Plan: Dietary restrictions reinforced Continue Omeprazole 20 mg QD (8) Depression: Code(s): F32.A - Depression, unspecified Qualifiers: Active/Remission status: currently active Depression Type: major depressive disorder Major depression episode severity: unspecified Major depression recurrence: recurrent Qualified Code(s): F33.9 - Major depressive disorder, recurrent, unspecified Plan: Continue Sertraline 50 mg QD (9) Obesity (BMI 30-39.9): Code(s): E66.9 - Obesity, unspecified Plan: Reinforced diet/exercise as tolerated/lose weight Plan Follow up in 4 months Orders: Orders XR foot LT min 3V 08/26/22 M79.671 - Pain in right foot, M79.672 - Pain in left foot XR foot RT min 3V 08/26/22 M79.671 - Pain in right foot, M79.672 - Pain in left foot XR lumbar spine 2-3V 08/26/22 M54.50 - Low back pain, unspecified, M54.10 - Radiculopathy, site unspecified NE electromyogram (EMG) 08/26/22 M54.10 - Radiculopathy, site unspecified NE nerve conduction velocity 08/26/22 M54.10 - Radiculopathy, site unspecified Comprehensive [place]. Panel Fast 4 Months E78.00 - Pure hypercholesterolemia, unspecified Lipid Panel 4 Months E78.00 - Pure hypercholesterolemia, unspecified Complete Blood Count Auto Diff 4 Months I10 - Essential (primary) hypertension Microalbumin, Random (w Creat) 4 Months E11.9 - Type 2 diabetes mellitus without complications Hemoglobin A1c 4 Months E11.9 - Type 2 diabetes mellitus without complications TSH reflex Free T4 4 Months E78.00 - Pure hypercholesterolemia, unspecified UA CC w/rflx Micro + Cult 4 Months R30.0 - Dysuria Magnesium 4 Months E83.42 - Hypomagnesemia, M54.10 - Radiculopathy, site unspecified Vitamin B12 and Folate 4 Months E53.8 - Deficiency of other specified B group vitamins, M54.10 - Radiculopathy, site unspecified Vitamin D 25-OH Total 4 Months E55.9 - Vitamin D deficiency, unspecified Erythrocyte Sedimentation Rate 4 Months M54.10 - Radiculopathy, site unspecified, M79.671 - Pain in right foot, M79.672 - Pain in left foot AMB Hemoglobin A1c 08/26/22 Z13.9 - Encounter for screening, unspecified Medications: New sitagliptin phosphate (Januvia) 100 mg PO DAILY 30 tabs 3RF 30 days gabapentin 100 mg PO BEDTIME 30 caps 3RF 30 days Coding Level of Care Code Est Pt Level 4 (59510) Diagnoses Paroxysmal atrial fibrillation I48.0 Benign essential hypertension I10 Pure hypercholesterolemia E78.00 Elevated LFTs R79.89 Radicular pain of right lower extremity M54.10 Bilateral foot pain M79.671; M79.672 GERD (gastroesophageal reflux disease) K21.9 Esophagitis presence: without esophagitis Depression F33.9 Active/Remission status: currently active Depression Type: major depressive disorder Major depression episode severity: unspecified Major depression recurrence: recurrent Obesity (BMI 30-39.9) E66.9
[2022-08-26 09:51] VITALS: BP 136/82; PULSE 58; O2SAT 100; BMI 31.5
== END 2022-08-26 10:41 | disposition home or self-care (01) ==
LOC: HO.HMGH 09:50
PROVIDERS: PCP Internal Medicine; Visit Provider Internal Medicine
DX: E11.9 Type 2 diabetes mellitus without complications
CPT/HCPCS: 83036; 99214

== ENCOUNTER 2022-10-28 09:24 | Outpatient (REF) | payer MEDICARE, SELFPAY ==
--- NOTE | 2022-10-28 09:26 | EMG_ITS ---
Please see scanned EMG / Nerve Conduction Report. MTDD
== END 2022-10-28 09:25 | disposition home or self-care (01) ==
LOC: HO.NEURO 09:24
PROVIDERS: PCP Internal Medicine; Visit Provider Internal Medicine
DX: M54.10 Radiculopathy, site unspecified (principal); M79.604 Pain in right leg; M79.605 Pain in left leg
CPT/HCPCS: 95885; 95911

== ENCOUNTER 2022-11-05 11:24 | Outpatient (REF) | payer MEDICARE, SELFPAY | END 2022-11-05 11:25 | disposition home or self-care (01) | LOC: HO.HMGCLDS 11:24 | PROVIDERS: PCP Internal Medicine; Visit Provider Podiatrist | DX: Z13.89 Encounter for screening for other disorder (principal) ==

== ENCOUNTER 2022-11-10 11:40 | Outpatient (REF) | payer MEDICARE, SELFPAY ==
[2022-11-10 12:00] LABS: MANUAL DIFF FLAG NO
[2022-11-10 12:05] LABS: Basophils Percent Auto 0.4 % (0-2); Eosinophils Absolute Auto 0.4 X10*3/uL (0.0-0.4); Eosinophils Percent Auto 5.4 % (0-4); Hematocrit 41.6 % (42.0-52.0); Hemoglobin 14.1 g/dl (14.0-18.0); Imm Gran Abs Auto 0.04 X10*3/uL (0.00-0.03); Imm Gran Pct Auto 0.5 % (0.0-0.4); Lymphocytes Absolute Auto 1.8 X10*3/uL (1.2-4.9); Lymphocytes Percent Auto 23.5 % (20-40); Mean Corpuscular HGB Conc 33.9 g/dl (31.0-36.0); Mean Corpuscular Hemoglobin 29.8 pg (27.0-33.0); Mean Corpuscular Volume 87.9 fL (80.0-98.0); Mean Platelet Volume 10.7 fL (9.4-12.4); Monocytes Absolute Auto 0.6 X10*3/uL (0.1-1.2); Neutrophils Absolute Auto 4.8 x10*3/uL (2.0-8.3); Neutrophils Percent Auto 62.2 % (45-73); Platelet Count 178 X10*3/uL (160-400); Red Blood Count 4.73 X10*6/uL (4.60-5.80); White Blood Count 7.8 X10*3/uL (4.8-10.8)
[2022-11-10 12:44] LABS: Alanine Aminotransferase 25 U/L (0-40); Albumin Level 4.2 g/dL (3.5-5.0); Alkaline Phosphatase 81 U/L (39-117); Anion Gap 12 (12-20); Aspartate Amino Transferase 22 U/L (5-37); Bilirubin Total 1.2 mg/dL (0.0-1.0); Blood Urea Nitrogen 16 mg/dL (9-16); Calcium 9.9 mg/dL (8.4-10.2); Carbon Dioxide 28 mmol/L (22-29); Chloride 104 mmol/L (96-108); Erythrocyte Sedimentation Rate 16 MM/HR (0-15); Estimated Glomerular Filt Rate > 60; Glucose Random 118 mg/dL (60-115); Potassium 4.5 mmol/L (3.3-5.1); Sodium 139 mmol/L (135-145); Total Protein 7.8 g/dL (6.5-8.0)
[2022-11-10 13:16] LABS: Folate 7.1 ng/mL (> or = 4.0); Vitamin B12 297 pg/mL (200-900)
== END 2022-11-10 11:41 | disposition home or self-care (01) ==
LOC: HO.LAB 11:40
PROVIDERS: PCP Internal Medicine; Visit Provider Podiatrist
DX: M79.671 Pain in right foot (principal); M19.072 Primary osteoarthritis, left ankle and foot; R20.2 Paresthesia of skin; E11.42 Type 2 diabetes mellitus with diabetic polyneuropathy; M79.2 Neuralgia and neuritis, unspecified; G60.9 Hereditary and idiopathic neuropathy, unspecified
CPT/HCPCS: 36415; 80053; 82607; 82746; 83090; 85025; 85652

== ENCOUNTER 2022-12-02 08:27 | Outpatient (AMB) | payer MEDICARE, SELFPAY ==
--- NOTE | 2022-12-02 09:18 | AM.OFFVISNUR ---
Intake Intake Visit Reasons: EKG Pbx Teacher Required: No Accompanied by: Self / Same As Patient Allergies latex [LATEX] Allergy (Intermediate, Verified 12/02/22 09:19) RASH Nursing Note Patient seen in office for routine EKG. Pt currently on Flecainide 100mg BID. Pt feels well no cardiac complaints. EKG auto reading shows sinus bradycardia with heart rate of 100mg BID. EKG on Dr. Macias desk for review. Workload message created. Office Procedures EKG [id number], Complete Coding Diagnoses CPT Codes EKG - CPT: [id number], Complete ([id number])
== END 2022-12-02 09:21 | disposition home or self-care (01) ==
PROVIDERS: Visit Provider Internal Medicine Cardiovascular Disease
DX: R00.1 Bradycardia, unspecified (principal)
CPT/HCPCS: 93010

== ENCOUNTER → 2022-12-02 08:27 | Outpatient (BNVA) | payer MEDICARE, SELFPAY | PROVIDERS: Visit Provider Internal Medicine Cardiovascular Disease | DX: R00.1 Bradycardia, unspecified (principal) | CPT/HCPCS: 93005 ==

== ENCOUNTER 2022-12-29 10:38 | Outpatient (AMB) | payer MEDICARE, SELFPAY ==
[2022-12-29 10:43] VITALS: BP 128/82; PULSE 57; O2SAT 96; BMI 31.2
--- NOTE | 2022-12-29 10:43 | MHC.PC.OV ---
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: No Accompanied by: Self / Same As Patient Allergies latex [LATEX] Allergy (Intermediate, Verified 12/29/22 11:23) RASH Medication List - Last Reconciled 12/29/22 by Cuong Morris MD acetaminophen 500 mg PO Q6H amlodipine 10 mg PO DAILY apixaban (Eliquis) 5 mg PO BID 90 days epinephrine (EpiPen) 0.3 mg (0.3 mL) IM Q4H PRN flecainide 100 mg PO Q12H 90 days gabapentin 400 mg PO TID losartan 25 mg PO DAILY metoprolol succinate ER 50 mg PO DAILY omeprazole 20 mg PO DAILY sertraline 50 mg PO DAILY sitagliptin phosphate (Januvia) 100 mg PO DAILY 30 days Tobacco use date assessed: 12/29/22 Fall risk assessment: 1 Fall in past year Last assessed Fall Risk: 12/29/22 Dental Screening Dental Screen Date: 12/29/22 Did you have a dental visit in the last 12 months?: No Did you have a dental problem in the last 6 months where you did not have access to dental care?: No Was dental information given to patient?: No HPI 4 month f/u HPI Details Patient comes in today for his follow up visit States that he currently feels okay Recalls that he went to the ER at [facility] last month on 12/04/22 for a near vasovagal syncope and was admitted for 24 hr observation at the time Recalls that he was just lying on his couch at the time when he suddenly experienced left-sided abdominal pain associated with onset of tunnel vision, dizziness, profuse sweating, itching on his arms/legs/palms and he broke out in some rash at the time, as well as some swelling of his tongue/throat. He was told at the ER that his serum troponin levels were elevated but all of his other labs were negative States that this is now the 4th time he's had near syncopal episodes and he is not sure if the Afib is triggering his symptoms or if something else is causing his recurrent syncopal/near syncopal episodes He has been scheduled for a tilt table test at [facility] next month on 02/02/23 for further evaluation He is also still experiencing increased pain in both legs, worse on the right leg; also notes that his leg sometimes feels weak and would like to see if his Gabapentin dosage can be increased further Would like to know how his NCV & EMG done a couple of months ago came out He denies any headaches Denies any exertional chest pains or SOB No nausea/vomiting, no abdominal pain No change in bowel habits noted Did not have any follow up labs done recently but had recalls that he had some labs done in October 2022 that were 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 [facility] Medical History (Updated 12/29/22 @ 11:42 by Cuong Morris MD) Arthritis Benign essential hypertension Current use of anticoagulant therapy Depression Diabetes mellitus Diabetic neuropathy Elevated LFTs Fatty liver GERD (gastroesophageal reflux disease) HTN (hypertension) IBS (irritable bowel syndrome) Obesity (BMI 30-39.9) Paroxysmal atrial fibrillation Pure hypercholesterolemia Surgical History H/O colonoscopy History of cardiac radiofrequency ablation History of esophagogastroduodenoscopy (EGD) Hx of eye surgery Hx of sinus surgery Hx of tonsillectomy Family History Father Diabetes Mother No problems noted. 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 1. Little interest or pleasure in doing things: not at all 2. Feeling down, depressed, or hopeless: not at all 3. Trouble falling or staying asleep, or sleeping too much: not at all 4. Feeling tired or having little energy: not at all 5. Poor appetite or overeating: not at all 6. Feeling bad about yourself - or that you are a failure or have let yourself or your family down: not at all 7. Trouble concentrating on things, such as reading the newspaper or watching television: not at all 8. Moving or speaking so slowly that other people could have noticed. Or the opposite - being so fidgety or restless that you have been moving around a lot more than usual: not at all 9. Thoughts that you would be better off or of hurting yourself in some way: not at all Total score: 0 Depression Screening Interpretation: Negative 77664 - PHQ-9 Billing: Yes Source: Developed by Drs. Jayson Daniel, Rosemarie Westbrook, Blake Reveles and colleagues, with an educational daly from [employer]. Thrive Questionnaire Date Thrive assessed: 12/29/22 I am a: Patient What is your living situation today?: I have a steady place to live Within the past 12 months, did the food you bought not last and you didn't have the money to get more?: Never true Within the past 12 months, did you worry whether your food would run out before you got money to buy more?: Never true Do you have trouble paying for medicines?: No Do you have trouble getting transportation to medical appointments?: No Do you have trouble paying your heating and electricity bill?: No Do you have trouble taking care of your child, family member or friend?: No Do you have trouble with day-to-day activities such as bathing, preparing meals, shopping, managing finances, etc.?: No Are you currently unemployed and looking for a job?: No Are you interested in more education?: No Please select the resources that you would like help with: None Currently or been in a relationship where the following occur: no concerns reported AUDIT C Alcohol Use Questionnaire (AUDIT-C) 1. How often do you have a drink containing alcohol?: 2-4 times a month 2. How many drinks containing alcohol do you have on a typical day when you are drinking?: 1 or 2 3. How often do you have six or more drinks on one occasion?: Never Total Score: 2 Score Reviewed/Action Taken: Yes (Is strongly advised to quit drinking (alcohol)) ZI-7 AMB Questionnaire ZI-7 Date ZI - 7 assessed: 12/29/22 Feeling nervous, anxious, or on edge: 0 = Not at all Not being able to stop or control worryin = Not at all Worrying too much about different things: 0 = Not at all Trouble relaxin = Not at all Being so restless that it is hard to sit still: 0 = Not at all Becoming easily annoyed or irritable: 0 = Not at all Feeling afraid as if something awful might happen: 0 = Not at all Total ZI-7 score (0-4 normal; 5-9 mild; 10-14 moderate; 15-21 severe): 0 Source: Developed by Drs. Jayson Daniel, Rosemarie Westbrook, Blake Reveles and colleagues, with an educational daly from [employer]. Review of Systems Const Denies chills, Denies fatigue, Denies fever(s) and Denies headache(s) ENT Denies dysphagia, Denies dizziness (aside from the episode he had a few weeks ago for which he went to the ER), Denies otalgia, Denies headache(s), Denies neck pain, Denies odynophagia, Denies sinus pain and Denies sore throat Card Denies chest pain, Denies palpitations and Denies dyspnea Resp Denies cough and Denies dyspnea GI Denies abdominal pain (at present), Denies constipation, Denies dysphagia, Denies heartburn, Denies diarrhea, Denies nausea, Denies odynophagia and Denies vomiting Denies dysuria, Denies nocturia and Denies urinary frequency Musc Details: (+) frequent soreness over the balls of the feet bilaterally Reports back pain (over the lower back, on and off), Reports arthralgias (right hip and knee, on and off), Denies neck pain and Reports radiating pain into limb (in the right leg - more of a constant aching sensation) Skin/Breast Denies rash Neuro Reports burning sensations (on and off in the left foot, especially over the toes), Denies dizziness (aside from the episode he had a few weeks ago for which he went to the ER) and Denies headache(s) Endo Denies fatigue and Denies palpitations Physical exam (Primary Care) Vital Signs: Last Vital Signs Pulse 57 12/29/22 10:43 BP 128/82 12/29/22 10:43 Pulse Ox 96 12/29/22 10:43 Oxygen Delivery Method Room Air 12/29/22 10:43 BMI result Body Mass Index 31.2 Tobacco/Smoking Status: Tobacco use Status Tobacco use date assessed 12/29/22 12/29/22 10:49 Patient Tobacco Use Status Former Tobacco user 12/29/22 10:49 e-Cigarette/Vaping Use Never Used 12/29/22 10:49 PHQ-9: PHQ-9 Score PHQ-9: Total score 0 12/30/22 09:18 Depression Screening Interpretation: Negative Thrive Assessment: Date of Thrive Assessment Date Thrive assessed 12/29/22 12/29/22 10:49 Currently or been in a relationship where the following occur: no concerns reported Const General: no acute distress and alert HENMT Ears: TM's normal bilaterally and EAC's normal Throat: Yes posterior oropharynx normal and Yes tonsils normal (no TP congestion) Neck Neck: Yes no lymphadenopathy and Yes supple Resp Auscultation: clear to auscultation bilaterally, no rales and no wheezes Cardio Rate: regular rate Rhythm: regular rhythm Heart sounds: no murmurs GI Palpation (GI): Soft to palpation and nontender Auscultation: normal bowel sounds Back/Spine/Pelvis Thoracic/Lumbar Spine: lumbar spinal tenderness (mild) and straight leg raise positive (slightly) right Skin Rashes: no rashes Neuro General: gait normal and no focal motor deficits Extrem General: Yes no clubbing, cyanosis or edema Right lower extremity: foot Details: normal to inspection and no edema Left lower extremity: foot Details: normal to inspection Results Reviewed Results Reviewed: Laboratory Tests 08/25/22 11/10/22 11/10/22 08:54 11:59 11:59 WBC 7.8 Hgb 14.1 Hct 41.6 L Plt Count 178 Sodium 139 Potassium 4.5 Creatinine 1.01 Estimated GFR > 60 Random Glucose 118 H Calcium 9.9 AST 22 ALT 25 LDL Cholesterol, Calc 170 Folate Homocysteine 11/10/22 11/10/22 11:59 11:59 WBC Hgb Hct Plt Count Sodium Potassium Creatinine Estimated GFR Random Glucose Calcium AST ALT LDL Cholesterol, Calc Folate 7.1 Homocysteine 25.0 H Assessment and Plan Assessment & Plan (1) Paroxysmal atrial fibrillation: Comment: sees Dr. Macias Code(s): I48.0 - Paroxysmal atrial fibrillation Plan: S/P ablation Patient currently remains in sinus bradycardia Continue Fleicanide 100 mg Q 12 hours and Metoprolol ER 50 mg QD Continue Eliquis 5 mg BID for thromboembolism prophylaxis Echocardiogram done in May 2021 showed normal LV systolic function with basal septal hypertrophy with mild mitral and tricuspid regurgitation and mild pulmonary hypertension Follow up with cardiology as scheduled (2) Pure hypercholesterolemia: Code(s): E78.00 - Pure hypercholesterolemia, unspecified Plan: Patient was not able to get his follow up labs done recently but reminded again that his cholesterol levels back in August 2022 were significantly elevated, with his LDL cholesterol at 170 mg/dl and considering his cardiac history and other comorbidities, as well as a very elevated homocyteine level that he had checked a couple of months ago, would strongly advise that he start taking medications to help lower his cholesterol ERICKA - patient now agrees to starting on medication for his cholesterol Reinforced low cholesterol diet Will start him on Atorvastatin 10 mg Q PM Will have him recheck his labs and fasting lipids in 4 months for follow up (3) Benign essential hypertension: Code(s): I10 - Essential (primary) hypertension Plan: Reinforced low sodium diet - goal is systolic BP of at least 120 to 130 mm or less Continue Lisinopril 20 mg QD, Amlodipine 10 mg QD and Metoprolol ER 50 mg QD (4) Elevated LFTs: Code(s): R79.89 - Other specified abnormal findings of blood chemistry Plan: Were most likely related to his weight and cholesterol levels although his LFTs have improved and were normal when they were last checked in October 2022 Will continue to monitor his LFTs regularly (5) GERD (gastroesophageal reflux disease): Code(s): K21.9 - Gastro-esophageal reflux disease without esophagitis Qualifiers: Esophagitis presence: without esophagitis Qualified Code(s): K21.9 - Gastro-esophageal reflux disease without esophagitis Plan: Dietary restrictions reinforced Continue Omeprazole 20 mg QD (6) Radicular pain of right lower extremity: Code(s): M54.10 - Radiculopathy, site unspecified Plan: Patient is advised that his EMG & NCV done back on 10/28/22 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 His EMG of the right L4-S1 innervated muscles are consistent with mild distal chronic neuropathic changes He is on Gabapentin 400 mg TID but states that it is still not helping enough - will increase his Gabapentin now to 600 mg TID (7) Bilateral foot pain: Code(s): M79.671 - Pain in right foot; M79.672 - Pain in left foot Plan: Will increase his Gabapentin to 600 mg TID (8) Depression: Code(s): F32.A - Depression, unspecified Qualifiers: Active/Remission status: currently active Depression Type: major depressive disorder Major depression episode severity: unspecified Major depression recurrence: recurrent Qualified Code(s): F33.9 - Major depressive disorder, recurrent, unspecified Plan: Continue Sertraline 50 mg QD (9) Obesity (BMI 30-39.9): Code(s): E66.9 - Obesity, unspecified Plan: Reinforced diet/exercise as tolerated/lose weight Plan Follow up in 4 months Orders: Orders Complete Blood Count Auto Diff 4 Months I10 - Essential (primary) hypertension Comprehensive [place]. Panel Fast 4 Months E78.00 - Pure hypercholesterolemia, unspecified Lipid Panel 4 Months E78.00 - Pure hypercholesterolemia, unspecified Hemoglobin A1c 4 Months E11.9 - Type 2 diabetes mellitus without complications Microalbumin, Random (w Creat) 4 Months E11.9 - Type 2 diabetes mellitus without complications UA CC w/rflx Micro + Cult 4 Months R30.0 - Dysuria TSH reflex Free T4 4 Months E78.00 - Pure hypercholesterolemia, unspecified Vitamin B12 and Folate 4 Months E53.8 - Deficiency of other specified B group vitamins Vitamin D 25-OH Total 4 Months E55.9 - Vitamin D deficiency, unspecified Medications: New gabapentin dose INCREASED to 600 mg TID 600 mg PO TID 30 days 90 tabs 5RF E11.40 - Type 2 diabetes mellitus with diabetic neuropathy, unspecified atorvastatin 10 mg PO QPM 90 days 90 tabs 1RF E11.9 - Type 2 diabetes mellitus without complications, E78.00 - Pure hypercholesterolemia, unspecified Coding Level of Care Code Est Pt Level 4 (77825) Diagnoses Paroxysmal atrial fibrillation I48.0 Pure hypercholesterolemia E78.00 Benign essential hypertension I10 Elevated LFTs R79.89 GERD (gastroesophageal reflux disease) K21.9 Esophagitis presence: without esophagitis Radicular pain of right lower extremity M54.10 Bilateral foot pain M79.671; M79.672 Depression F33.9 Active/Remission status: currently active Depression Type: major depressive disorder Major depression episode severity: unspecified Major depression recurrence: recurrent Obesity (BMI 30-39.9) E66.9
== END 2022-12-29 11:43 | disposition home or self-care (01) ==
PROVIDERS: Visit Provider Internal Medicine
DX: I48.0 Paroxysmal atrial fibrillation (principal); I10 Essential (primary) hypertension; K21.9 Gastro-esophageal reflux disease without esophagitis; F33.9 Major depressive disorder, recurrent, unspecified; E78.00 Pure hypercholesterolemia, unspecified; R79.89 Other specified abnormal findings of blood chemistry; M54.10 Radiculopathy, site unspecified; M79.671 Pain in right foot; M79.672 Pain in left foot; E66.9 Obesity, unspecified
CPT/HCPCS: 99214

== ENCOUNTER 2023-03-22 10:47 | Outpatient (REF) | payer MEDICARE, SELFPAY ==
[2023-03-22 13:35] LABS: Alanine Aminotransferase 34 U/L (0-40); Albumin Level 4.5 g/dL (3.5-5.0); Alkaline Phosphatase 97 U/L (39-117); Aspartate Amino Transferase 28 U/L (5-37); Bilirubin Direct 0.3 mg/dL (0.0-0.5); Bilirubin Total 0.7 mg/dL (0.0-1.0)
== END 2023-03-22 10:48 | disposition home or self-care (01) ==
LOC: HO.HMGCLDS 10:47
PROVIDERS: PCP Internal Medicine; Visit Provider Internal Medicine
DX: K76.0 Fatty (change of) liver, not elsewhere classified (principal); R74.8 Abnormal levels of other serum enzymes
CPT/HCPCS: 36415; 80076

== ENCOUNTER 2023-05-04 07:54 | Outpatient (REF) | payer MEDICARE, SELFPAY ==
[2023-05-04 08:10] LABS: MANUAL DIFF FLAG NO
[2023-05-04 08:47] LABS: Basophils Absolute Auto 0.1 X10*3/uL (0.0-0.2); Basophils Percent Auto 0.7 % (0-2); Eosinophils Absolute Auto 0.4 X10*3/uL (0.0-0.4); Eosinophils Percent Auto 5.9 % (0-4); Hematocrit 41.8 % (42.0-52.0); Hemoglobin 14.2 g/dl (14.0-18.0); Imm Gran Abs Auto 0.02 X10*3/uL (0.00-0.03); Imm Gran Pct Auto 0.3 % (0.0-0.4); Lymphocytes Absolute Auto 1.7 X10*3/uL (1.2-4.9); Lymphocytes Percent Auto 23.1 % (20-40); Mean Corpuscular Hemoglobin 30.4 pg (27.0-33.0); Mean Corpuscular Volume 89.5 fL (80.0-98.0); Mean Platelet Volume 11.5 fL (9.4-12.4); Monocytes Absolute Auto 0.6 X10*3/uL (0.1-1.2); Monocytes Percent Auto 8.3 % (2-11); Neutrophils Absolute Auto 4.6 x10*3/uL (2.0-8.3); Neutrophils Percent Auto 61.7 % (45-73); Platelet Count 171 X10*3/uL (160-400); Red Blood Count 4.67 X10*6/uL (4.60-5.80); Red Cell Distribution Width 13.5 % (11.0-16.0); White Blood Count 7.4 X10*3/uL (4.8-10.8)
[2023-05-04 09:02] LABS: Appearance Urine Clear; Color Urine Dark Yellow; Glucose Urine UA Negative (Negative); Leukocyte Esterase Urine Negative (Negative); Nitrite Urine Negative (Negative); Urine Blood Negative (Negative); Urine Ketones Trace mg/dL (Negative); Urine Protein Negative (Neg-Trace)
[2023-05-04 09:11] LABS: Estimated Average Glucose 128 mg/dL; Hemoglobin A1c % 6.1 % (<6.0)
[2023-05-04 09:22] LABS: Alanine Aminotransferase 38 U/L (0-40); Albumin Level 4.7 g/dL (3.5-5.0); Alkaline Phosphatase 108 U/L (39-117); Anion Gap 15 (12-20); Aspartate Amino Transferase 26 U/L (5-37); Bilirubin Total 1.1 mg/dL (0.0-1.0); Blood Urea Nitrogen 14 mg/dL (9-16); Calcium 10.3 mg/dL (8.4-10.2); Carbon Dioxide 28 mmol/L (22-29); Chloride 100 mmol/L (96-108); Cholesterol 215 mg/dL (<200); Erythrocyte Sedimentation Rate 14 MM/HR (0-15); Estimated Glomerular Filt Rate > 60; Glucose Fasting 120 mg/dL (60-99); HDL Cholesterol 79 mg/dL (>40); LDL Cholesterol Calculated 106 mg/dL (<100); Magnesium 1.9 mg/dL (1.6-2.6); Sodium 139 mmol/L (135-145); Total Protein 8.3 g/dL (6.5-8.0); Triglycerides 153 mg/dL (<150)
[2023-05-04 09:24] LABS: Creatinine Urine 158.18 mg/dL; Microalbum/Creatinine Ratio Ur 18.3 ug/mg cr (<30)
[2023-05-04 09:28] LABS: Vitamin D 25-OH Total 25.6 ng/mL (>30)
[2023-05-04 09:33] LABS: Folate 6.3 ng/mL (> or = 4.0); Vitamin B12 251 pg/mL (200-900)
== END 2023-05-04 07:55 | disposition home or self-care (01) ==
LOC: HO.LAB 07:54
PROVIDERS: PCP Internal Medicine; Visit Provider Internal Medicine
DX: E78.00 Pure hypercholesterolemia, unspecified (principal); I10 Essential (primary) hypertension; E11.9 Type 2 diabetes mellitus without complications; R30.0 Dysuria; E55.9 Vitamin D deficiency, unspecified; E53.8 Deficiency of other specified B group vitamins; E83.42 Hypomagnesemia; M54.10 Radiculopathy, site unspecified; M79.671 Pain in right foot; M79.672 Pain in left foot
CPT/HCPCS: 36415; 80053; 80061; 81003; 82043; 82306; 82570; 82607; 82746; 83036; 83735; 84443; 85025; 85652

== ENCOUNTER 2023-05-06 10:30 | Outpatient (AMB) | payer MEDICARE, SELFPAY ==
[2023-05-06 10:30] VITALS: BP 132/84; PULSE 56; O2SAT 95; BMI 31.5
--- NOTE | 2023-05-06 10:30 | MHC.PC.OV ---
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 Accompanied by: Self / Same As Patient Allergies latex [LATEX] Allergy (Intermediate, Verified 05/06/23 11:10) RASH Medication List - Last Reconciled 05/06/23 by Cuong Morris MD acetaminophen 500 mg PO Q6H amlodipine 10 mg PO DAILY apixaban (Eliquis) 5 mg PO BID 90 days atorvastatin 10 mg PO QPM 90 days epinephrine (EpiPen) 0.3 mg (0.3 mL) IM Q4H PRN flecainide 100 mg PO Q12H 90 days gabapentin 600 mg PO TID 30 days losartan 25 mg PO DAILY metoprolol succinate ER 50 mg PO DAILY omeprazole 20 mg PO DAILY sertraline 50 mg PO DAILY sitagliptin phosphate (Januvia) 100 mg PO DAILY 90 days Tobacco use date assessed: 05/06/23 Fall risk assessment: 2 + Falls in past year Last assessed Fall Risk: 05/06/23 Dental Screening Dental Screen Date: 05/06/23 Did you have a dental visit in the last 12 months?: No Did you have a dental problem in the last 6 months where you did not have access to dental care?: No Was dental information given to patient?: No HPI 4 month f/u HPI Details Patient comes in today for his follow up visit States that he feels okay He denies any headaches or dizziness Denies any chest pains, no shortness of breath No nausea / vomiting, no abdominal pain No change in bowel habits noted Still has increased pain over his lower back with frequent radiation of pain down his right leg States that his Gabapentin was helping with his symptoms especially when his dose was raised a few months ago but its effects have since worn off; would like to see if his Gabapentin dose can be raised further States that he has also been experiencing increasing urinary frequency lately, especially at night; denies any dysuria Needs his Omeprazole Rx refilled Had his follow-up labs done a few days ago - to discuss his results [facility] Medical History (Updated 05/07/23 @ 05:22 by Cuong Morris MD) Vitamin B12 deficiency Vitamin D deficiency Diabetes mellitus Diabetic neuropathy Elevated LFTs Pure hypercholesterolemia Obesity (BMI 30-39.9) Benign essential hypertension Fatty liver Arthritis GERD (gastroesophageal reflux disease) Current use of anticoagulant therapy Depression IBS (irritable bowel syndrome) HTN (hypertension) Paroxysmal atrial fibrillation Surgical History Hx of eye surgery H/O colonoscopy History of esophagogastroduodenoscopy (EGD) Hx of tonsillectomy History of cardiac radiofrequency ablation Hx of sinus surgery Family History Father Diabetes Mother No problems noted. 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 1. Little interest or pleasure in doing things: not at all 2. Feeling down, depressed, or hopeless: not at all 3. Trouble falling or staying asleep, or sleeping too much: not at all 4. Feeling tired or having little energy: not at all 5. Poor appetite or overeating: not at all 6. Feeling bad about yourself - or that you are a failure or have let yourself or your family down: not at all 7. Trouble concentrating on things, such as reading the newspaper or watching television: not at all 8. Moving or speaking so slowly that other people could have noticed. Or the opposite - being so fidgety or restless that you have been moving around a lot more than usual: not at all 9. Thoughts that you would be better off or of hurting yourself in some way: not at all Total score: 0 Depression Screening Interpretation: Negative Depression Screening Done: Yes [id number] - PHQ-9 Billing: Yes Source: Developed by Drs. Jayson Daniel, Rosemarie Westbrook, Blake Reveles and colleagues, with an educational daly from [employer]. Thrive Questionnaire Date Thrive assessed: 05/06/23 I am a: Patient What is your living situation today?: I have a steady place to live Within the past 12 months, did the food you bought not last and you didn't have the money to get more?: Never true Within the past 12 months, did you worry whether your food would run out before you got money to buy more?: Never true Do you have trouble paying for medicines?: No Do you have trouble getting transportation to medical appointments?: No Do you have trouble paying your heating and electricity bill?: No Do you have trouble taking care of your child, family member or friend?: No Do you have trouble with day-to-day activities such as bathing, preparing meals, shopping, managing finances, etc.?: No Are you currently unemployed and looking for a job?: No Are you interested in more education?: No Please select the resources that you would like help with: None Currently or been in a relationship where the following occur: no concerns reported AUDIT C Alcohol Use Questionnaire (AUDIT-C) 1. How often do you have a drink containing alcohol?: 2-4 times a month 2. How many drinks containing alcohol do you have on a typical day when you are drinking?: 1 or 2 3. How often do you have six or more drinks on one occasion?: Never Total Score: 2 Score Reviewed/Action Taken: Yes (Has been advised to quit drinking (alcohol)) ZI-7 AMB Questionnaire ZI-7 Date ZI - 7 assessed: 05/06/23 Feeling nervous, anxious, or on edge: 0 = Not at all Not being able to stop or control worryin = Not at all Worrying too much about different things: 0 = Not at all Trouble relaxin = Not at all Being so restless that it is hard to sit still: 0 = Not at all Becoming easily annoyed or irritable: 0 = Not at all Feeling afraid as if something awful might happen: 0 = Not at all Total ZI-7 score (0-4 normal; 5-9 mild; 10-14 moderate; 15-21 severe): 0 Source: Developed by Rosemarie Rucker B.W. Pietro, Blake Reveles and colleagues, with an educational daly from [employer]. Review of Systems Const Denies chills, Denies fatigue, Denies fever(s) and Denies headache(s) ENT Denies dysphagia, Denies dizziness, Denies otalgia, Denies headache(s), Denies neck pain, Denies odynophagia and Denies sore throat Card Denies chest pain, Denies palpitations and Denies dyspnea Resp Denies cough and Denies dyspnea GI Denies abdominal pain, Denies constipation, Denies dysphagia, Denies heartburn, Denies diarrhea, Denies nausea, Denies odynophagia and Denies vomiting Denies dysuria, Reports nocturia, Reports urinary frequency and Denies urinary incontinence Musc Reports back pain (increasing, over the lower back), Denies neck pain and Reports radiating pain into limb (recurrent, into the right leg) Skin/Breast Denies rash Neuro Denies dizziness and Denies headache(s) Endo Denies fatigue and Denies palpitations Physical exam (Primary Care) Vital Signs: Last Vital Signs Pulse 56 05/06/23 10:30 BP 132/84 05/06/23 10:30 Pulse Ox 95 05/06/23 10:30 Oxygen Delivery Method Room Air 05/06/23 10:30 BMI result Body Mass Index 31.5 Tobacco/Smoking Status: Tobacco use Status Tobacco use date assessed 05/06/23 05/06/23 10:32 Patient Tobacco Use Status Former Tobacco user 05/06/23 10:32 e-Cigarette/Vaping Use Never Used 05/06/23 10:32 PHQ-9: PHQ-9 Score PHQ-9: Total score 0 05/06/23 11:23 Depression Screening Interpretation: Negative Thrive Assessment: Date of Thrive Assessment Date Thrive assessed 05/06/23 05/06/23 10:32 Currently or been in a relationship where the following occur: no concerns reported Const General: no acute distress and alert HENMT Ears: TM's normal bilaterally and EAC's normal Throat: Yes posterior oropharynx normal and Yes tonsils normal (no TP congestion) Neck Neck: Yes no lymphadenopathy and Yes supple Resp Auscultation: clear to auscultation bilaterally, no rales and no wheezes Cardio Rate: regular rate Rhythm: regular rhythm Heart sounds: no murmurs GI Palpation (GI): Soft to palpation and nontender Auscultation: normal bowel sounds Back/Spine/Pelvis Thoracic/Lumbar Spine: lumbar spinal tenderness (mild) and straight leg raise positive (slightly) Skin Rashes: no rashes Neuro General: gait normal and no focal motor deficits Extrem General: Yes no clubbing, cyanosis or edema Results Reviewed Results Reviewed: Laboratory Tests 03/22/23 05/04/23 05/04/23 10:53 08:08 08:08 WBC 7.4 Hgb 14.2 Hct 41.8 L Plt Count 171 ESR 14 Sodium 139 Potassium 4.0 Creatinine 1.04 Estimated GFR > 60 Fasting Glucose 120 H Hemoglobin A1c % 6.1 H Calcium 10.3 H Magnesium 1.9 Total Bilirubin 1.1 H Direct Bilirubin 0.3 AST 26 ALT 38 Triglycerides 153 H Cholesterol 215 H LDL Cholesterol, Calc 106 H HDL Cholesterol 79 Vitamin B12 251 25-OH Vitamin D Total 25.6 L TSH 3.20 Ur Specific [place] Urine Protein Urine Glucose (UA) Urine Blood Microalb/Creat Ratio 05/04/23 08:13 WBC Hgb Hct Plt Count ESR Sodium Potassium Creatinine Estimated GFR Fasting Glucose Hemoglobin A1c % Calcium Magnesium Total Bilirubin Direct Bilirubin AST ALT Triglycerides Cholesterol LDL Cholesterol, Calc HDL Cholesterol Vitamin B12 25-OH Vitamin D Total TSH Ur Specific [place] 1.020 Urine Protein Negative Urine Glucose (UA) Negative Urine Blood Negative Microalb/Creat Ratio 18.3 Assessment and Plan Assessment & Plan (1) Paroxysmal atrial fibrillation: Comment: sees Dr. Macias Code(s): I48.0 - Paroxysmal atrial fibrillation Plan: S/P ablation Patient currently remains in sinus bradycardia Continue Fleicanide 100 mg Q 12 hours and Metoprolol ER 50 mg QD Continue Eliquis 5 mg BID for thromboembolism prophylaxis Echocardiogram done in May 2021 showed normal LV systolic function with basal septal hypertrophy with mild mitral and tricuspid regurgitation and mild pulmonary hypertension Follow up with cardiology as scheduled (2) Benign prostatic hyperplasia with urinary frequency: Code(s): N40.1 - Benign prostatic hyperplasia with lower urinary tract symptoms; R35.0 - Frequency of micturition Plan: Advised that his urinary symptoms are most likely due to BPH Will start him for now on Tansulosin 0.4 mg Q HS Will also refer him to urology for further evaluation and management (3) Pure hypercholesterolemia: Code(s): E78.00 - Pure hypercholesterolemia, unspecified Plan: Results of his labs done a few days ago reviewed and discussed with patient - advised that his cholesterol levels have improved significantly from previous Reinforced low cholesterol diet Continue Atorvastatin 10 mg Q PM Will have him recheck his labs and fasting lipids in 4 months for follow up (4) Benign essential hypertension: Code(s): I10 - Essential (primary) hypertension Plan: Reinforced low sodium diet - goal is systolic BP of at least 120 to 130 mm or less Continue Lisinopril 20 mg QD, Amlodipine 10 mg QD and Metoprolol ER 50 mg QD (5) Elevated LFTs: Code(s): R79.89 - Other specified abnormal findings of blood chemistry Plan: Were most likely related to his weight and cholesterol levels; his LFTs have improved on his recent labs Will continue to monitor his LFTs regularly (6) GERD (gastroesophageal reflux disease): Code(s): K21.9 - Gastro-esophageal reflux disease without esophagitis Qualifiers: Esophagitis presence: without esophagitis Qualified Code(s): K21.9 - Gastro-esophageal reflux disease without esophagitis Plan: Dietary restrictions reinforced Continue Omeprazole 20 mg QD (7) Radicular pain of right lower extremity: Code(s): M54.10 - Radiculopathy, site unspecified Plan: Patient's EMG & NCV done back on 10/28/22 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 His EMG of the right L4-S1 innervated muscles are consistent with mild distal chronic neuropathic changes He is currently on Gabapentin 600 mg TID but states that it is no longer helping enough - will increase his Gabapentin now further to 800 mg TID (8) Bilateral foot pain: Code(s): M79.671 - Pain in right foot; M79.672 - Pain in left foot Plan: Will increase his Gabapentin now to 800 mg TID (9) Vitamin D deficiency: Code(s): E55.9 - Vitamin D deficiency, unspecified Plan: Patient is advised that his Vitamin D level remains low on his recent labs Will have him start taking Vitamin D3 2000 units QD (10) Vitamin B12 deficiency: Code(s): E53.8 - Deficiency of other specified B group vitamins Plan: He is also advised that his Vitamin B12 level is at the low end of normal on his recent labs Have recommended that he also start taking some OTC Vitamin B12 tablets 1000 mcg at least once or twice a week (11) Depression: Code(s): F32.A - Depression, unspecified Qualifiers: Active/Remission status: currently active Depression Type: major depressive disorder Major depression episode severity: unspecified Major depression recurrence: recurrent Qualified Code(s): F33.9 - Major depressive disorder, recurrent, unspecified Plan: Continue Sertraline 50 mg QD (12) Obesity (BMI 30-39.9): Code(s): E66.9 - Obesity, unspecified Plan: Reinforced diet/exercise as tolerated/lose weight Plan Follow up in 4 months Orders: Orders Hemoglobin A1c 4 Months E11.9 - Type 2 diabetes mellitus without complications Comprehensive [place]. Panel Fast 4 Months E78.00 - Pure hypercholesterolemia, unspecified Complete Blood Count Auto Diff 4 Months I10 - Essential (primary) hypertension Vitamin B12 and Folate 4 Months E53.8 - Deficiency of other specified B group vitamins UA CC w/rflx Micro + Cult 4 Months R30.0 - Dysuria Lipid Panel 4 Months E78.00 - Pure hypercholesterolemia, unspecified Vitamin D 25-OH Total 4 Months E55.9 - Vitamin D deficiency, unspecified Referrals Urology Referral N40.1 - Benign prostatic hyperplasia with lower urinary tract symptoms, R35.0 - Frequency of micturition Medications: New cyanocobalamin (vitamin B-12) 1,000 mcg PO .weekly 90 days 13 tabs 3RF tamsulosin 0.4 mg PO BEDTIME 90 days 90 caps 1RF N40.1 - Benign prostatic hyperplasia with lower urinary tract symptoms, R35.1 - Nocturia cholecalciferol (vitamin D3) 50 mcg PO DAILY 90 days 90 caps 3RF E55.9 - Vitamin D deficiency, unspecified Changed From gabapentin dose INCREASED to 600 mg TID 600 mg PO TID 30 days 90 tabs 5RF E11.40 - Type 2 diabetes mellitus with diabetic neuropathy, unspecified To gabapentin dose INCREASED to 800 mg TID 800 mg PO TID 30 days 90 tabs 5RF E11.40 - Type 2 diabetes mellitus with diabetic neuropathy, unspecified From omeprazole 20 mg PO DAILY To omeprazole 20 mg PO DAILY 90 days 90 caps 1RF Refilled atorvastatin 10 mg PO QPM 90 days 90 tabs 1RF E11.9 - Type 2 diabetes mellitus without complications, E78.00 - Pure hypercholesterolemia, unspecified Coding Level of Care Code Est Pt Level 4 (82715) Diagnoses Paroxysmal atrial fibrillation I48.0 Benign prostatic hyperplasia with urinary frequency N40.1; R35.0 Pure hypercholesterolemia E78.00 Benign essential hypertension I10 Elevated LFTs R79.89 Gastroesophageal reflux disease without esophagitis K21.9 Esophagitis presence: without esophagitis Radicular pain of right lower extremity M54.10 Bilateral foot pain M79.671; M79.672 Vitamin D deficiency E55.9 Vitamin B12 deficiency E53.8 Episode of recurrent major depressive disorder, unspecified depression episode severity F33.9 Active/Remission status: currently active Depression Type: major depressive disorder Major depression episode severity: unspecified Major depression recurrence: recurrent Obesity (BMI 30-39.9) E66.9
== END 2023-05-06 11:25 | disposition home or self-care (01) ==
PROVIDERS: PCP Internal Medicine; Visit Provider Internal Medicine
DX: I48.0 Paroxysmal atrial fibrillation (principal); F33.9 Major depressive disorder, recurrent, unspecified; N40.1 Benign prostatic hyperplasia with lower urinary tract symptoms; R35.0 Frequency of micturition; E78.00 Pure hypercholesterolemia, unspecified; I10 Essential (primary) hypertension; R79.89 Other specified abnormal findings of blood chemistry; K21.9 Gastro-esophageal reflux disease without esophagitis; M54.10 Radiculopathy, site unspecified; M79.671 Pain in right foot; M79.672 Pain in left foot; E55.9 Vitamin D deficiency, unspecified
CPT/HCPCS: 99214

== ENCOUNTER 2023-06-03 08:53 | Outpatient (AMB) | payer MEDICARE, SELFPAY ==
--- NOTE | 2023-06-03 08:58 | A.OFFVIS_ITS ---
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 Allergies latex [LATEX] Allergy (Intermediate, Verified 05/06/23 11:10) RASH Medication List - Last Reconciled 06/03/23 by Silvestre Macias MD acetaminophen 500 mg PO Q6H amlodipine 10 mg PO DAILY apixaban (Eliquis) 5 mg PO BID 90 days atorvastatin 10 mg PO QPM 90 days cholecalciferol (vitamin D3) 50 mcg PO DAILY 90 days cyanocobalamin (vitamin B-12) 1,000 mcg PO .weekly 90 days epinephrine (EpiPen) 0.3 mg (0.3 mL) IM Q4H PRN flecainide 100 mg PO Q12H 90 days gabapentin 800 mg PO TID 30 days losartan 25 mg PO DAILY metoprolol succinate ER 50 mg PO DAILY omeprazole 20 mg PO DAILY 90 days sertraline 50 mg PO DAILY sitagliptin phosphate (Januvia) 100 mg PO DAILY 90 days tamsulosin 0.4 mg PO BEDTIME 90 days HPI HPI Comments History of Present Illness Details Ori comes for follow-up. He has been doing well from cardiac perspective. He is currently dealing with diabetes and neuropathy issues with his feet. He has not had any episodes of atrial fibrillation feels occasional fluttering in her chest but no prolonged irregular heartbeat. No exertional chest pain or shortness of breath. Takes all his medications. No bleeding issues or neurologic events. He had recent blood work which shows normal renal function. [facility] Medical History Vitamin B12 deficiency Vitamin D deficiency Diabetes mellitus Diabetic neuropathy Elevated LFTs Pure hypercholesterolemia Obesity (BMI 30-39.9) Benign essential hypertension Fatty liver Arthritis GERD (gastroesophageal reflux disease) Current use of anticoagulant therapy Depression IBS (irritable bowel syndrome) HTN (hypertension) Paroxysmal atrial fibrillation Surgical History Hx of eye surgery H/O colonoscopy History of esophagogastroduodenoscopy (EGD) Hx of tonsillectomy History of cardiac radiofrequency ablation Hx of sinus surgery Family History Father Diabetes Mother No problems noted. 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 Current occupational exposures/hazards: No Cognitive needs: No Hearing needs: No Vision needs: No Review of Systems Const Denies chills, Denies fatigue, Denies fever(s), Denies frequent falls, Denies weakness, Denies weight gain and Denies weight loss ENT Denies dizziness Card Denies chest pain, Denies leg edema, Denies lightheadedness, Denies palpitations, Denies dyspnea, Denies dyspnea on exertion, Denies orthopnea and Denies other (loss of consciousness) Resp Denies cough, Denies dyspnea and Denies dyspnea on exertion GI Denies hematochezia and Denies change in stool character Musc Denies abnormal gait, Denies muscle weakness, Denies numbness, Denies radiating pain into limb and Denies tingling Neuro Denies abnormal gait, Denies dizziness, Denies frequent falls, Denies numbness, Denies tingling and Denies weakness Endo Denies fatigue and Denies palpitations Physical Exam Vital Signs: Last Vital Signs Pulse 66 06/03/23 08:59 BP 120/78 06/03/23 08:59 BMI result Body Mass Index 31.5 Const General: cooperative, comfortable, no acute distress, alert and awake Nutritional Appearance: overweight Orientation/consciousness: patient oriented x3 Limitations: no limitations Neck Neck: Yes trachea midline, Yes supple and Yes no JVD Resp Effort & Inspection: normal respiratory effort Auscultation: clear to auscultation bilaterally Cardio Jugular venous distension: no JVD Palpation: normal PMI Rate: regular rate Rhythm: regular rhythm Heart sounds: S1 normal heart sound present and S2 normal heart sound present GI Auscultation: normal bowel sounds Skin General skin exam: no rashes or lesions noted Neuro General: patient oriented x3 and no focal motor deficits Extrem General: Yes no clubbing, cyanosis or edema Psych Appearance: grossly normal Office Procedures EKG Details: EKG shows normal sinus rhythm with normal EKG with normal axis and normal intervals [id number], Complete Assessment & Plan Assessment & Plan (1) Paroxysmal atrial fibrillation: Comment: sees Dr. Macias Code(s): I48.0 - Paroxysmal atrial fibrillation Plan: Paroxysmal atrial fibrillation which has remained suppressed on current therapy with flecainide which has tolerated well. He has had no recurrent episode with significant improvement in the quality of his life. Continue current treatment approach with rhythm control approach. Continue flecainide therapy. Continue concomitant metoprolol therapy as well. CHADSVASc soore of at least 3. Continue full oral anticoagulation, currently on Eliquis 5 mg b.i.d.. Semi annual renal function test should be pursued. Semi annual EKG will be performed as well. Continue risk factor modification. (2) Benign essential hypertension: Code(s): I10 - Essential (primary) hypertension Plan: Hypertension is well controlled at this point time. Importance of good blood pressure control was discussed. He understands and agrees. Continue current therapy. Continue aggressively manage diabetes goal hemoglobin A1c less than 7%. Goal LDL should be at least less than 100 mg/dL. Participate in physical activity as much as tolerated. Participate in weight loss program. Follow up in the clinic in 1 year's time after an echocardiogram. Thank you for allowing me to partake in his care Orders: Orders CA echo transthoracic complete 50 Weeks I48.0 - Paroxysmal atrial fibrillation Coding Level of Care Code Est Pt Level 4 (15169) Diagnoses Paroxysmal atrial fibrillation I48.0 Benign essential hypertension I10 CPT Codes EKG - CPT: 43481-[id number], Complete ([id number])
[2023-06-03 08:59] VITALS: BP 120/78; PULSE 66; BMI 31.5
== END 2023-06-03 09:23 | disposition home or self-care (01) ==
PROVIDERS: PCP Internal Medicine; Visit Provider Internal Medicine Cardiovascular Disease
DX: I48.0 Paroxysmal atrial fibrillation (principal); I10 Essential (primary) hypertension
CPT/HCPCS: 93010; 99214

== ENCOUNTER → 2023-06-03 08:53 | Outpatient (BNVA) | payer MEDICARE, SELFPAY | PROVIDERS: Visit Provider Internal Medicine Cardiovascular Disease | DX: I48.0 Paroxysmal atrial fibrillation (principal); I10 Essential (primary) hypertension | CPT/HCPCS: 93005; 99212 ==

== ENCOUNTER 2023-08-17 10:55 | Outpatient (AMB) | payer MEDICARE, SELFPAY ==
[2023-08-17 11:01] VITALS: BP 136/74; PULSE 62; O2SAT 96; BMI 31.4
--- NOTE | 2023-08-17 11:01 | MHC.OFFWIV ---
Intake Vital Signs 08/17/23 11:01 Height 6 ft 0.5 in Weight 235 lb BMI 31.4 BP 136/74 Blood Pressure Location Lt brachial Position Sitting Pulse 62 Pulse Source Pulse Oximeter Pulse Oximetry (%) 96 Oxygen Delivery Method Room Air Intake Visit Reasons: EP Sciatica pain (lobby) Intake Note: pt is here for sciatica pain ongoing for a few weeks Patient Tobacco Use Status: Former Tobacco user Quit Date: 1987 Allergies latex [LATEX] Allergy (Intermediate, Verified 08/17/23 11:41) RASH Medication List - Last Reconciled 08/17/23 by Dionisio Archer MD acetaminophen 500 mg PO Q6H amlodipine 10 mg PO DAILY apixaban (Eliquis) 5 mg PO BID 90 days atorvastatin 10 mg PO QPM 90 days cholecalciferol (vitamin D3) 50 mcg PO DAILY 90 days cyanocobalamin (vitamin B-12) 1,000 mcg PO .weekly 90 days epinephrine (EpiPen) 0.3 mg (0.3 mL) IM Q4H PRN flecainide 100 mg PO Q12H gabapentin 800 mg PO TID 30 days losartan 25 mg PO DAILY metoprolol succinate ER 50 mg PO DAILY omeprazole 20 mg PO DAILY 90 days sertraline 50 mg PO DAILY sitagliptin phosphate (Januvia) 100 mg PO DAILY 90 days tamsulosin 0.4 mg PO BEDTIME 90 days Do you need a note to return to daycare/school/sports/work: No HPI EP Sciatica pain (lobby) HPI Details Patient presents to the office for a sick visit. Complaining of lower back pain for the past 5 weeks. No history of fall or trauma prior to the onset of symptoms. No urinary incontinence. No fevers or chills. Pain is worse on bending forwards or sideways. Relieve done sitting down. Pain is radiating into the gluteal area. [facility] Medical History Vitamin B12 deficiency Vitamin D deficiency Diabetes mellitus Diabetic neuropathy Elevated LFTs Pure hypercholesterolemia Obesity (BMI 30-39.9) Benign essential hypertension Fatty liver Arthritis GERD (gastroesophageal reflux disease) Current use of anticoagulant therapy Depression IBS (irritable bowel syndrome) HTN (hypertension) Paroxysmal atrial fibrillation Surgical History Hx of eye surgery H/O colonoscopy History of esophagogastroduodenoscopy (EGD) Hx of tonsillectomy History of cardiac radiofrequency ablation Hx of sinus surgery Family History Father Diabetes Mother No problems noted. 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 Current occupational exposures/hazards: No Cognitive needs: No Hearing needs: No Vision needs: No Physical Exam Vital Signs: Last Vital Signs Pulse 62 08/17/23 11:01 BP 136/74 08/17/23 11:01 Pulse Ox 96 08/17/23 11:01 Oxygen Delivery Method Room Air 08/17/23 11:01 BMI result Body Mass Index 31.4 Const General: cooperative and healthy appearing Nutritional Appearance: well nourished Orientation/consciousness: patient oriented x3 Limitations: no limitations HEENT Head: Yes normal to inspection Eyes General: appearance normal, both eyes and all related structures Neck Neck: Yes normal visual inspection Chest Chest palpation & inspection: normal palpation of entire chest wall Resp Effort & Inspection: normal respiratory effort General: Yes no CVA tenderness Back/Spine/Pelvis Other: No spinal tenderness, no paraspinal spasm. Straight leg raising was negative. Back: no CVA tenderness Neuro General: patient oriented x3 Assessment & Plan Assessment & Plan (1) Low back pain: Code(s): M54.50 - Low back pain, unspecified Plan: Meloxicam and cyclobenzaprine called in. Patient was advised rest. Note for work if necessary provided. Once pain symptoms subside, patient should start physical therapy. If symptoms worsen to follow-up here and Toradol injection will be given. Coding Level of Care Code Est Pt Level 4 (76565) Diagnoses Low back pain M54.50
== END 2023-08-17 11:50 | disposition home or self-care (01) ==
PROVIDERS: PCP Internal Medicine; Visit Provider Internal Medicine
DX: M54.50 Low back pain, unspecified (principal)
CPT/HCPCS: 99214

== ENCOUNTER 2023-08-23 09:42 | Outpatient (AMB) | payer MEDICARE, SELFPAY ==
[2023-08-23 10:00] VITALS: BP 144/90; PULSE 63; O2SAT 95; BMI 32.4
--- NOTE | 2023-08-23 10:00 | AM.OFFWIN_ITS ---
Intake Vital Signs 08/23/23 10:00 Height 6 ft 0.5 in Weight 242 lb BMI 32.4 BP 144/90 H Blood Pressure Location Rt brachial Position Sitting Pulse 63 Pulse Source Pulse Oximeter Pulse Oximetry (%) 95 Oxygen Delivery Method Room Air Intake Visit Reasons: EP Sciatic problem Intake Note: pt is here today for sciatic problem that started about 6 weeks ago and it isnt improving. He states he was given a muscle relaxer which helped a little but states it comes back after the meds wear off. Patient Tobacco Use Status: Former Tobacco user Quit Date: 1987 Allergies latex [LATEX] Allergy (Intermediate, Verified 08/23/23 10:08) RASH HPI HPI Comments History of Present Illness Details Patient presents to the walk-in today for sick visit Complaining of persistent right lower back pain with radiation down the right leg for last 6 weeks. Has suffered with this multiple times in the past, states does not usually persist for this long Seen at the walk-in last week for same, given cyclobenzaprine which he has been taking with moderate relief. Taking 2 tabs daily, states makes him a little sleepy and also the pain returns once the medication wears off. Also takes gabapentin as prescribed by his primary care doctor He has not been to physical therapy for this, he is trying to do some stretches at home but reports that it is very uncomfortable Denies red flag symptoms including new loss of bowel, bladder or saddle anesthesia PFSH Medical History Vitamin B12 deficiency Vitamin D deficiency Diabetes mellitus Diabetic neuropathy Elevated LFTs Pure hypercholesterolemia Obesity (BMI 30-39.9) Benign essential hypertension Fatty liver Arthritis GERD (gastroesophageal reflux disease) Current use of anticoagulant therapy Depression IBS (irritable bowel syndrome) HTN (hypertension) Paroxysmal atrial fibrillation Surgical History Hx of eye surgery H/O colonoscopy History of esophagogastroduodenoscopy (EGD) Hx of tonsillectomy History of cardiac radiofrequency ablation Hx of sinus surgery Family History Father Diabetes Mother No problems noted. 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 Answers questions appropriately. Fully engaged in examination. Skin: warm, dry, intact HEENT: Normocephalic. Hearing intact. Cardiac: External chest normal in appearance. Respiratory: No cough, audible wheezing or stridor. Abdomen: without gross distension. MS: No obvious swelling or deformities. Able to transition from sit to stand unassisted. Ambulates with bilaterally normal heel strike and toe off Tenderness over midline lumbar vertebrae right lumbar paraspinal muscles SLR with dorsiflexion positive on the right Neurological: Oriented to person, place, time and situation. Thought process intact. Psychiatric: Appropriate mood and affect. Good judgment and insight. Assessment & Plan Assessment & Plan (1) Lumbar radiculopathy: Code(s): M54.16 - Radiculopathy, lumbar region Plan Order placed for PT eval and treat Message been sent to patient's primary care doctor requesting consideration for referral to pain management to evaluate for interventional treatment and potential epidural steroid injection Discontinue cyclobenzaprine, will trial methocarbamol 750 mg p.o. q.8 hours as needed. Patient advised on cautions for use Lidocaine 5% patches, on for 12 hours off for 12 hours Given current use of Eliquis, nonsteroidal anti-inflammatory medications avoided Follow-up PCP or return to walk-in for any new or persistent symptoms. Orders: Orders PT Evaluation and Treatment Today M54.16 - Radiculopathy, lumbar region Medications: New lidocaine 5% leave on most painful area for up to 12 hrs 1 patch topical DAILY 30 ea 0RF methocarbamol Discontinue use of cyclobenzaprine. Do not drive while taking this medication, do not take with alcohol or other [employer] depressants 750 mg PO Q8H 10 days 30 tabs 0RF Coding Level of Care Code Est Pt Level 3 (00780) Diagnoses Lumbar radiculopathy M54.16
== END 2023-08-23 10:48 | disposition home or self-care (01) ==
PROVIDERS: PCP Internal Medicine; Visit Provider Registered Nurse Emergency
DX: M54.16 Radiculopathy, lumbar region (principal)
CPT/HCPCS: 99213

== ENCOUNTER 2023-09-01 10:23 | Outpatient (AMB) | payer MEDICARE, SELFPAY ==
[2023-09-01 10:40] VITALS: BP 129/93; PULSE 57; RESP 18; O2SAT 96; BMI 32.4
--- NOTE | 2023-09-01 10:40 | MHC.OFFVIS ---
Intake Vital Signs 09/01/23 10:40 Height 6 ft 0.5 in Weight 242 lb 1 oz BMI 32.4 BP 129/93 H Blood Pressure Location Lt brachial Position Sitting Respiration 18 Pulse 57 Pulse Source Pulse Oximeter Pulse Oximetry (%) 96 Oxygen Delivery Method Room Air Intake Visit Reasons: Low Back Pain Allergies latex [LATEX] Allergy (Intermediate, Verified 08/23/23 10:08) RASH HPI HPI Comments History of Present Illness Details Ori is a very pleasant 67-year-old male who presents the office today for evaluation and management of his right lower back pain. Patient has been suffering with this pain for greater than 20 years, though he reports exacerbation of the pain approximately 7 weeks ago. Pain midline lumbar spine with radiation down the right leg to the foot. He does endorse stabbing, tingling burning pain down the leg. He states at times he feels that his upper body is able to move faster in his lower body and feels like his right leg does not work as well as the left making his gait slower and awkward. Pain today is rated as 5/10, constant, worse throughout the day and in the evenings. He denies red flag symptoms including new loss of bowel, bladder or saddle anesthesia. Patient has not attempted chiropractor, acupuncture or massage. He has no history of injections. He has been trying to do home exercise program but finds it very difficult due to the increasing pain. Order recently placed for PT, patient awaiting call to schedule. In terms of muscle damage condition is described as aching, hot, burning, stabbing, sharp, shooting, dull, cramping, squeezing, numb. Pain is negatively impacting patient's enjoyment of life, normal work, sleep and walking. He is currently taking muscle relaxers with some improvement of his pain. Despite being on Eliquis and repeatedly being told he should not be taking nonsteroidal anti-inflammatory medications he currently takes ibuprofen as needed and states this is the only thing that provides him some relief. Patient denies implantable devices, pacemaker or defibrillator. 08/23/2023: visit at walk-in Patient presents to the walk-in today for sick visit Complaining of persistent right lower back pain with radiation down the right leg for last 6 weeks. Has suffered with this multiple times in the past, states does not usually persist for this long Seen at the walk-in last week for same, given cyclobenzaprine which he has been taking with moderate relief. Taking 2 tabs daily, states makes him a little sleepy and also the pain returns once the medication wears off. Also takes gabapentin as prescribed by his primary care doctor He has not been to physical therapy for this, he is trying to do some stretches at home but reports that it is very uncomfortable Denies red flag symptoms including new loss of bowel, bladder or saddle anesthesia PFSH Medical History Vitamin B12 deficiency Vitamin D deficiency Diabetes mellitus Diabetic neuropathy Elevated LFTs Pure hypercholesterolemia Obesity (BMI 30-39.9) Benign essential hypertension Fatty liver Arthritis GERD (gastroesophageal reflux disease) Current use of anticoagulant therapy Depression IBS (irritable bowel syndrome) HTN (hypertension) Paroxysmal atrial fibrillation Surgical History Hx of eye surgery H/O colonoscopy History of esophagogastroduodenoscopy (EGD) Hx of tonsillectomy History of cardiac radiofrequency ablation Hx of sinus surgery Family History Father Diabetes Mother No problems noted. 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 Answers questions appropriately. Fully engaged in examination. Skin: warm, dry, intact HEENT: Normocephalic. Hearing intact. Cardiac: External chest normal in appearance. Respiratory: No cough, audible wheezing or stridor. Abdomen: without gross distension. MS: No obvious swelling or deformities. Able to transition from sit to stand unassisted. Ambulates with bilaterally normal heel strike and toe off Tenderness over midline lumbar vertebrae right lumbar paraspinal muscles SLR with dorsiflexion positive on the right Negative clonus, negative footdrop SHARON negative bilaterally Bilateral lower extremity strength 5/5 Nontender over bilateral PSIS Neurological: Oriented to person, place, time and situation. Thought process intact. Psychiatric: Appropriate mood and affect. Good judgment and insight. Assessment & Plan Assessment & Plan (1) Lumbar radiculopathy: Code(s): M54.16 - Radiculopathy, lumbar region Plan Ori is a very pleasant 67-year-old male who presented to the office today for evaluation and management of his chronic right lower back pain History, physical exam and provocative testing consistent with lumbar radiculopathy Order has been placed for MRI of the lumbar spine to evaluate for nerve root compression given patient's reported weakness, numbness and pain of the right lower extremity. Continue with plan for PT Continue muscle relaxers, will increase to methocarbamol a 1000 mg p.o. t.i.d.. Patient tolerated 750 mg t.i.d. but did not find adequate pain relief at that dose. He denies sedating effects of the medication. Continue with Lidocaine 5% patches, on for 12 hours off for 12 hours Given current use of Eliquis, nonsteroidal anti-inflammatory medications avoided. Patient reminded again today to discontinue use of ibuprofen. All questions and concerns were answered, patient agrees with plan. Follow-up after MRI, sooner if needed. Orders: Orders MR lumbar spine wo con Today M54.16 - Radiculopathy, lumbar region Medications: New methocarbamol 1,000 mg PO TID 90 tabs 0RF Coding Level of Care Code New Pt Level 4 (09308) Diagnoses Lumbar radiculopathy M54.16
== END 2023-09-01 11:10 | disposition home or self-care (01) ==
PROVIDERS: PCP Internal Medicine; Referring Provider Internal Medicine; Visit Provider Registered Nurse Emergency
DX: M54.16 Radiculopathy, lumbar region (principal)
CPT/HCPCS: 99204

== ENCOUNTER → 2023-09-01 10:23 | Outpatient (BNVA) | payer MEDICARE, SELFPAY | PROVIDERS: PCP Internal Medicine; Referring Provider Internal Medicine; Visit Provider Registered Nurse Emergency | DX: M54.16 Radiculopathy, lumbar region (principal) | CPT/HCPCS: 99202 ==

== ENCOUNTER → 2023-11-23 08:54 | Outpatient (BNVA) | payer MEDICARE, SELFPAY | PROVIDERS: PCP Internal Medicine; Visit Provider Internal Medicine Cardiovascular Disease ==

== ENCOUNTER 2024-01-28 12:28 | Outpatient (AMB) | payer MEDICARE, SELFPAY ==
[2024-01-28 12:46] VITALS: BP 116/80; PULSE 56; O2SAT 95; BMI 32.7
--- NOTE | 2024-01-28 12:46 | A.OFFPC_ITS ---
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 Accompanied by: Self / Same As Patient Allergies latex [LATEX] Allergy (Intermediate, Verified 01/28/24 13:22) RASH lisinopril Allergy (Intermediate, Verified 01/30/24 03:19) Angioedema Medication List - Last Reconciled 01/28/24 by Cuong Morris MD acetaminophen 500 mg PO Q6H amlodipine 10 mg PO DAILY apixaban (Eliquis) 5 mg PO BID 90 days atorvastatin 10 mg PO QPM 90 days cholecalciferol (vitamin D3) 50 mcg PO DAILY 90 days cyanocobalamin (vitamin B-12) 1,000 mcg PO .weekly 90 days epinephrine (EpiPen) 0.3 mg (0.3 mL) IM Q4H PRN flecainide 100 mg PO Q12H gabapentin 800 mg PO TID 30 days losartan 25 mg PO DAILY metoprolol succinate ER 50 mg PO DAILY omeprazole 20 mg PO DAILY 90 days sertraline 50 mg PO DAILY sitagliptin phosphate (Januvia) 100 mg PO DAILY 90 days tamsulosin 0.4 mg PO BEDTIME 90 days Tobacco use date assessed: 01/28/24 Fall risk assessment: No Falls in past year Last assessed Fall Risk: 01/28/24 Dental Screening Dental Screen Date: 01/28/24 Did you have a dental visit in the last 12 months?: No Did you have a dental problem in the last 6 months where you did not have access to dental care?: No Was dental information given to patient?: Patient has dentist HPI follow up HPI Details Patient comes in today for his follow up visit States that he feels okay He was last seen in April 2023 as he had to reschedule his previous appointment in August 2023 He has not had any follow up labs done since He denies any headaches or dizziness Denies any chest pains, no SOB No nausea/vomiting, no abdominal pain No change in bowel habits noted States that his low back pain has been much more manageable lately and that his Rx (Gabapentin) is helping He was seen by pain management a while ago and sent for MRI and PT but as his pain has subsided a lot since, he did not get his MRI done or been to PT [facility] Medical History (Updated 01/30/24 @ 03:26 by Cuong Morris MD) Vitamin B12 deficiency Vitamin D deficiency Diabetes mellitus Diabetic neuropathy Elevated LFTs Pure hypercholesterolemia Obesity (BMI 30-39.9) Benign essential hypertension Fatty liver Arthritis GERD (gastroesophageal reflux disease) Current use of anticoagulant therapy Depression IBS (irritable bowel syndrome) HTN (hypertension) Paroxysmal atrial fibrillation Surgical History Hx of eye surgery H/O colonoscopy History of esophagogastroduodenoscopy (EGD) Hx of tonsillectomy History of cardiac radiofrequency ablation Hx of sinus surgery Family History Father Diabetes Mother No problems noted. 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 1. Little interest or pleasure in doing things: not at all 2. Feeling down, depressed, or hopeless: not at all 3. Trouble falling or staying asleep, or sleeping too much: not at all 4. Feeling tired or having little energy: not at all 5. Poor appetite or overeating: not at all 6. Feeling bad about yourself - or that you are a failure or have let yourself or your family down: not at all 7. Trouble concentrating on things, such as reading the newspaper or watching television: not at all 8. Moving or speaking so slowly that other people could have noticed. Or the opposite - being so fidgety or restless that you have been moving around a lot more than usual: not at all 9. Thoughts that you would be better off or of hurting yourself in some way: not at all Total score: 0 Depression Screening Interpretation: Negative Depression Screening Done: Yes 51682 - PHQ-9 Billing: Yes Source: Developed by Drs. Jayson Daniel, Rosemarie Westbrook, Blake Reveles and colleagues, with an educational daly from [employer]. Thrive Questionnaire Date Thrive assessed: 01/28/24 I am a: Patient What is your living situation today?: I have a steady place to live Within the past 12 months, did the food you bought not last and you didn't have the money to get more?: Never true Within the past 12 months, did you worry whether your food would run out before you got money to buy more?: Never true Do you have trouble paying for medicines?: No Do you have trouble getting transportation to medical appointments?: No Do you have trouble paying your heating and electricity bill?: No Do you have trouble taking care of your child, family member or friend?: No Do you have trouble with day-to-day activities such as bathing, preparing meals, shopping, managing finances, etc.?: No Are you currently unemployed and looking for a job?: No Are you interested in more education?: No Please select the resources that you would like help with: None Currently or been in a relationship where the following occur: No concerns reported THRIVE Score: 0 AUDIT C Alcohol Use Questionnaire (AUDIT-C) 1. How often do you have a drink containing alcohol?: 2-4 times a month 2. How many drinks containing alcohol do you have on a typical day when you are drinking?: 1 or 2 3. How often do you have six or more drinks on one occasion?: Never Total Score: 2 Score Reviewed/Action Taken: Yes ZI-7 AMB Questionnaire ZI-7 Date ZI - 7 assessed: 01/28/24 Feeling nervous, anxious, or on edge: 0 = Not at all Not being able to stop or control worryin = Not at all Worrying too much about different things: 0 = Not at all Trouble relaxin = Not at all Being so restless that it is hard to sit still: 0 = Not at all Becoming easily annoyed or irritable: 0 = Not at all Feeling afraid as if something awful might happen: 0 = Not at all Total ZI-7 score (0-4 normal; 5-9 mild; 10-14 moderate; 15-21 severe): 0 Source: Developed by Drs. Jayson Daniel, Rosemarie Westbrook, Blake Reveles and colleagues, with an educational daly from [employer]. Review of Systems Const Denies chills, Denies fatigue, Denies fever(s) and Denies headache(s) ENT Denies dysphagia, Denies dizziness, Denies otalgia, Denies headache(s), Denies neck pain, Denies odynophagia and Denies sore throat Card Denies chest pain, Denies palpitations and Denies dyspnea Resp Denies cough and Denies dyspnea GI Denies abdominal pain, Denies constipation, Denies dysphagia, Denies heartburn, Denies diarrhea, Denies nausea, Denies odynophagia and Denies vomiting Denies dysuria, Reports nocturia, Reports urinary frequency and Denies urinary incontinence Musc Reports back pain (more manageable currently), Denies neck pain and Reports radiating pain into limb (occasionally, into the right leg) Skin/Breast Denies rash Neuro Denies dizziness and Denies headache(s) Endo Denies fatigue and Denies palpitations Physical exam (Primary Care) Vital Signs: Last Vital Signs Pulse 56 01/28/24 12:46 BP 116/80 01/28/24 12:46 Pulse Ox 95 01/28/24 12:46 Oxygen Delivery Method Room Air 01/28/24 12:46 BMI result Body Mass Index 32.7 Tobacco/Smoking Status: Tobacco use Status Tobacco use date assessed 01/28/24 01/28/24 12:52 Patient Tobacco Use Status Former Tobacco user 01/28/24 12:52 e-Cigarette/Vaping Use Never Used 01/28/24 12:52 PHQ-9: PHQ-9 Score PHQ-9: Total score 0 01/28/24 13:27 Depression Screening Interpretation: Negative Thrive Assessment: Date of Thrive Assessment Date Thrive assessed 01/28/24 01/28/24 12:52 Currently or been in a relationship where the following occur: No concerns reported Const General: no acute distress and alert HENMT Ears: TM's normal bilaterally and EAC's normal Throat: Yes posterior oropharynx normal and Yes tonsils normal (no TP congestion) Neck Neck: Yes no lymphadenopathy and Yes supple Resp Auscultation: clear to auscultation bilaterally, no rales and no wheezes Cardio Rate: regular rate Rhythm: regular rhythm Heart sounds: no murmurs GI Palpation (GI): Soft to palpation and nontender Auscultation: normal bowel sounds Back/Spine/Pelvis Thoracic/Lumbar Spine: lumbar spinal tenderness (mild) and straight leg raise positive (slightly) Skin Rashes: no rashes Neuro General: gait normal and no focal motor deficits Extrem General: Yes no clubbing, cyanosis or edema Assessment and Plan Assessment & Plan (1) Paroxysmal atrial fibrillation: Comment: sees Dr. Macias Code(s): I48.0 - Paroxysmal atrial fibrillation Plan: S/P ablation Patient currently remains in sinus bradycardia Continue Fleicanide 100 mg Q 12 hours and Metoprolol ER 50 mg QD Continue Eliquis 5 mg BID for thromboembolism prophylaxis Echocardiogram done in May 2021 showed normal LV systolic function with basal septal hypertrophy with mild mitral and tricuspid regurgitation and mild pulmonary hypertension Follow up with cardiology as scheduled (2) Benign prostatic hyperplasia with urinary frequency: Code(s): N40.1 - Benign prostatic hyperplasia with lower urinary tract symptoms; R35.0 - Frequency of micturition Plan: Advised that his urinary symptoms are most likely due to BPH He was previously started on Tamsulosin 0.4 mg Q HS and this has reportedly helped a lot with his urinary symptoms We also referred him to urology for further evaluation and management previously but it looks like he has not been to see urology yet (3) Pure hypercholesterolemia: Code(s): E78.00 - Pure hypercholesterolemia, unspecified Plan: His cholesterol levels have improved significantly from previous when he last had his labs done back in April 2023 Reinforced low cholesterol diet Continue Atorvastatin 10 mg Q PM Will have him recheck his labs and fasting lipids in 4 months for follow up (4) Benign essential hypertension: Code(s): I10 - Essential (primary) hypertension Plan: Reinforced low sodium diet - goal is systolic BP of at least 120 to 130 mm or less Continue Losartan 25 mg QD, Amlodipine 10 mg QD and Metoprolol ER 50 mg QD (5) Diabetes mellitus: Code(s): E11.9 - Type 2 diabetes mellitus without complications Qualifiers: Diabetes mellitus type: type 2 Diabetes mellitus halfway insulin use: without halfway use Diabetes mellitus complication status: without complication Qualified Code(s): E11.9 - Type 2 diabetes mellitus without complications Plan: His HgbA1c was at 6.1% when last checked in April 2023 - goal is <6.5% Reinforced diabetic diet Continue Sitagliptin 100 mg QD Will recheck his FBS and HgbA1c in 4 months for follow up (6) Elevated LFTs: Code(s): R79.89 - Other specified abnormal findings of blood chemistry Plan: These were most likely related to his weight and cholesterol levels; his LFTs have improved on his previous labs done back in April 2023 Will continue to monitor his LFTs regularly (7) GERD (gastroesophageal reflux disease): Code(s): K21.9 - Gastro-esophageal reflux disease without esophagitis Qualifiers: Esophagitis presence: without esophagitis Qualified Code(s): K21.9 - Gastro-esophageal reflux disease without esophagitis Plan: Dietary restrictions reinforced Continue Omeprazole 20 mg QD (8) Low back pain: Code(s): M54.50 - Low back pain, unspecified Qualifiers: Chronicity: unspecified Back pain laterality: right Sciatica presence: with sciatica Sciatica laterality: sciatica of right side Qualified Code(s): M54.41 - Lumbago with sciatica, right side Plan: Reinforced activity and weight-lifting restrictions to avoid aggravating his low back pain He was seen by pain management a few months ago and sent for MRI of the lumbar spine for further evaluation and to physical therapy Patient did not get his MRI done as his back was feeling better after a while and he opted not to go for the procedure He also was not seen by physical therapy - states that he chose not to schedule his sessions when his back pain felt better and more manageable with his current Rx Continue Gabapentin 800 mg TID (9) Radicular pain of right lower extremity: Code(s): M54.10 - Radiculopathy, site unspecified Plan: Patient's EMG & NCV done back on 10/28/22 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 His EMG of the right L4-S1 innervated muscles are consistent with mild distal chronic neuropathic changes Continue Gabapentin 800 mg TID (10) Bilateral foot pain: Code(s): M79.671 - Pain in right foot; M79.672 - Pain in left foot Plan: Continue Gabapentin 800 mg TID (11) Vitamin D deficiency: Code(s): E55.9 - Vitamin D deficiency, unspecified Plan: Continue Vitamin D3 2000 units QD (12) Vitamin B12 deficiency: Code(s): E53.8 - Deficiency of other specified B group vitamins Plan: Continue OTC Vitamin B12 tablets 1000 mcg once or twice a week (13) Depression: Code(s): F32.A - Depression, unspecified Qualifiers: Active/Remission status: currently active Depression Type: major depressive disorder Major depression episode severity: unspecified Major depression recurrence: recurrent Qualified Code(s): F33.9 - Major depressive disorder, recurrent, unspecified Plan: Continue Sertraline 50 mg QD (14) Obesity (BMI 30-39.9): Code(s): E66.9 - Obesity, unspecified Plan: Reinforced diet/exercise as tolerated/lose weight Plan Follow up in 4 months Orders: Orders Hemoglobin A1c 4 Months E11.9 - Type 2 diabetes mellitus without complications Complete Blood Count Auto Diff 4 Months D64.9 - Anemia, unspecified Lipid Panel 4 Months E78.00 - Pure hypercholesterolemia, unspecified Comprehensive [place]. Panel Fast 4 Months E78.00 - Pure hypercholesterolemia, unspecified Vitamin D 25-OH Total 4 Months E55.9 - Vitamin D deficiency, unspecified Vitamin B12 and Folate 4 Months E53.8 - Deficiency of other specified B group vitamins UA CC w/rflx Micro + Cult 4 Months R30.0 - Dysuria Hemoglobin A1c 4 Months E11.9 - Type 2 diabetes mellitus without complications TSH reflex Free T4 4 Months E78.00 - Pure hypercholesterolemia, unspecified Microalbumin, Random (w Creat) 4 Months E11.9 - Type 2 diabetes mellitus without complications Coding Level of Care Code Est Pt Level 4 (62008) Complex EM visit Add On G2211 Diagnoses Paroxysmal atrial fibrillation I48.0 Benign prostatic hyperplasia with urinary frequency N40.1; R35.0 Pure hypercholesterolemia E78.00 Benign essential hypertension I10 Type 2 diabetes mellitus without complication, without long-term current use of insulin E11.9 Diabetes mellitus type: type 2 Diabetes mellitus 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 use: without joint terminal attack controller use Diabetes mellitus complication status: without complication Elevated LFTs R79.89 Gastroesophageal reflux disease without esophagitis K21.9 Esophagitis presence: without esophagitis Right-sided low back pain with right-sided sciatica, unspecified chronicity M54.41 Chronicity: unspecified Back pain laterality: right Sciatica presence: with sciatica Sciatica laterality: sciatica of right side Radicular pain of right lower extremity M54.10 Bilateral foot pain M79.671; M79.672 Vitamin D deficiency E55.9 Vitamin B12 deficiency E53.8 Episode of recurrent major depressive disorder, unspecified depression episode severity F33.9 Active/Remission status: currently active Depression Type: major depressive disorder Major depression episode severity: unspecified Major depression recurrence: recurrent Obesity (BMI 30-39.9) E66.9
== END 2024-01-28 13:38 | disposition home or self-care (01) ==
PROVIDERS: PCP Internal Medicine; Visit Provider Internal Medicine
DX: I48.0 Paroxysmal atrial fibrillation (principal); E11.9 Type 2 diabetes mellitus without complications; F33.9 Major depressive disorder, recurrent, unspecified; N40.1 Benign prostatic hyperplasia with lower urinary tract symptoms; R35.0 Frequency of micturition; E78.00 Pure hypercholesterolemia, unspecified; I10 Essential (primary) hypertension; R79.89 Other specified abnormal findings of blood chemistry; K21.9 Gastro-esophageal reflux disease without esophagitis; M54.41 Lumbago with sciatica, right side; M54.10 Radiculopathy, site unspecified; M79.671 Pain in right foot
CPT/HCPCS: 99214; G2211

== ENCOUNTER 2024-02-21 11:44 | Outpatient (REF) | payer MEDICARE, SELFPAY ==
[2024-02-21 12:57] LABS: Anion Gap 11 (12-20); Blood Urea Nitrogen 15 mg/dL (9-16); Calcium 9.7 mg/dL (8.4-10.2); Carbon Dioxide 27 mmol/L (22-29); Chloride 103 mmol/L (96-108); Estimated Glomerular Filt Rate > 60; Glucose Random 208 mg/dL (60-115); Potassium 3.7 mmol/L (3.3-5.1); Sodium 137 mmol/L (135-145)
[2024-02-21 12:59] LABS: B Type Natriuretic Peptide 86 pg/mL (<100)
== END 2024-02-21 11:45 | disposition home or self-care (01) ==
LOC: HO.LAB 11:44
PROVIDERS: PCP Internal Medicine; Visit Provider Internal Medicine Cardiovascular Disease
DX: R60.9 Edema, unspecified (principal); I48.0 Paroxysmal atrial fibrillation; I10 Essential (primary) hypertension
CPT/HCPCS: 36415; 80048; 83880

== ENCOUNTER 2024-02-22 09:25 | Outpatient (AMB) | payer MEDICARE, SELFPAY ==
--- NOTE | 2024-02-22 09:27 | MHC.OFFWIV ---
Intake Vital Signs 02/22/24 09:28 Height 6 ft 0.5 in Weight 248 lb BMI 33.2 BP 130/84 Blood Pressure Location Lt brachial Position Sitting Pulse 62 Pulse Source Pulse Oximeter Pulse Oximetry (%) 98 Oxygen Delivery Method Room Air Intake Visit Reasons: EP-b/l ankle/foot swollen Intake Note: Patient here for bilat ankle and feet swelling, states the other day they were very red and difficult to walk. Patient Tobacco Use Status: Former Tobacco user Allergies latex [LATEX] Allergy (Intermediate, Verified 01/28/24 13:22) RASH lisinopril Allergy (Intermediate, Verified 01/30/24 03:19) Angioedema Do you need a note to return to daycare/school/sports/work: No HPI HPI Comments History of Present Illness Details last week mid pozo down with leg edema, skin redness and red patches with SOB He said it lasted until Wednesday for legs to go down in size; 4-5 days He said he stayed active and lifted legs while resting The day those symptoms onset he was working outside and unsure if he stepped in brush that causes rash or legs to swell He said he had + itching to legs Chronic sinus issues but no SOB, leg heaviness, or fatigue with ambulating He said legs back to normal size Denies chest pain Called radiology administrator; Dr Ray with [facility] and they ordered labs Was told that his sugar was high; 209 glucose yesterday. Labs from yesterday 02/20 He does not check sugars regularly; on On Eliquis for Afib and metoprolol for HTN Today he has no had anything to eat; drank coffee with no sugar; black He is worried his sugars anent being controlled with just januvia so he decided to come in He said + urinary frequency without urgency or dysuria he has PCP follow up next week [facility] Medical History (Updated 02/22/24 @ 09:46 by Nirmala Clemente PA-C) Vitamin B12 deficiency Vitamin D deficiency Diabetes mellitus Diabetic neuropathy Elevated LFTs Pure hypercholesterolemia Obesity (BMI 30-39.9) Benign essential hypertension Fatty liver Arthritis GERD (gastroesophageal reflux disease) Current use of anticoagulant therapy Depression IBS (irritable bowel syndrome) HTN (hypertension) Paroxysmal atrial fibrillation Surgical History Hx of eye surgery H/O colonoscopy History of esophagogastroduodenoscopy (EGD) Hx of tonsillectomy History of cardiac radiofrequency ablation Hx of sinus surgery Family History Father Diabetes Mother No problems noted. 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 Current occupational exposures/hazards: No Cognitive needs: No Hearing needs: No Vision needs: No Review of Systems Const Denies chills, Reports fatigue (ith exertion last week -Sun but symptoms resolved) and Denies fever(s) Eyes Denies change in vision ENT Reports nasal congestion, Denies nasal discharge, Denies sinus pressure and Denies sore throat Card Denies chest pain, Denies dyspnea and Reports dyspnea on exertion (had last week but it resolved) Resp Denies change in phlegm color, Denies chest congestion, Denies cough, Denies dyspnea and Reports dyspnea on exertion (had last week but it resolved) GI Denies abdominal pain Denies difficulty urinating, Denies dysuria, Reports urinary frequency, Denies urinary incontinence and Denies urinary urgency Skin/Breast Denies rash Endo Reports fatigue (ith exertion last week -Sun but symptoms resolved) Physical Exam Vital Signs: Last Vital Signs Pulse 62 02/22/24 09:28 BP 130/84 02/22/24 09:28 Pulse Ox 98 02/22/24 09:28 Oxygen Delivery Method Room Air 02/22/24 09:28 BMI result Body Mass Index 33.2 General: Non-toxic, NAD. Speaking full sentences. Skin: Warm dry throughout. There is no leg edema, erythema or pitting edema noted. Legs symmetrical in size and shape and ankle malleoli are well demarcated Respiratory: CTA bilaterally. No wheezes, rales or rhonchi Cardiac: RRR. No murmur. DP pulse intact. No calf tenderness bilaterally. MSK: Full ROM extremities. Neurology: A/O. No aphasia or facial droop. Gait without abnormality Psych: Good mood and affect Results AMB Random Glucose (hemocue) AMB Random Glucose (hemocue) 131 mg/dL Last Edit by Joanne Mcgrath, GARETT on 02/22/24 09:54 AMB Hemoglobin A1c AMB Hemoglobin A1c 6.6 % Last Edit by Joanne Mcgrath, GARETT on 02/22/24 09:55 AMB Urinalysis, Automated UA Leukoctes 0 Emerson/uL Last Edit by Joanne Mcgrath, GARETT on 02/22/24 10:02 UA Nitrite Negative Last Edit by Joanne Mcgrath, SHIP PILOT DISPATCHER on 02/22/24 10:02 UA Urobilinogen 0.2 mg/dL Last Edit by Joanne Mcgrath, SHIP PILOT DISPATCHER on 02/22/24 10:02 UA Protein 15 mg/dL Last Edit by Joanne Mcgrath, SHIP PILOT DISPATCHER on 02/22/24 10:02 UA pH 0 Last Edit by Joanne Mcgrath, SHIP PILOT DISPATCHER on 02/22/24 10:02 UA Blood 0 [place]/uL Last Edit by Joanne Mcgrath, SHIP PILOT DISPATCHER on 02/22/24 10:02 UA Specific Higden 1.025 Last Edit by Joanne Mcgrath, GARETT on 02/22/24 10:02 UA Ketone Negative Last Edit by Joanne Mcgrath, GARETT on 02/22/24 10:02 UA Bilirubin 0 mg/dL Last Edit by Joanne Mcgrath, SHIP PILOT DISPATCHER on 02/22/24 10:02 UA Glucose 0 mg/dL Last Edit by Joanne Mcgrath, SHIP PILOT DISPATCHER on 02/22/24 10:02 Results Reviewed Results Reviewed: Laboratory Last Values Random Glu (Clinic) 131 mg/dL 02/22/24 09:50 Hgb A1c (Clinic) 6.6 % (4.0-6.0) H 02/22/24 09:50 Urine pH (Auto) 0 02/22/24 09:50 Specific [place]den (Auto) 1.025 02/22/24 09:50 Urine Protein (Auto) 15 mg/dL 02/22/24 09:50 Glucose (UA)(Auto) 0 mg/dL 02/22/24 09:50 Urine Ketones (Auto) Negative 02/22/24 09:50 Urine Blood (Auto) 0 [place]/uL 02/22/24 09:50 Urine Nitrite (Auto) Negative 02/22/24 09:50 Urine Bilirubin (Auto) 0 mg/dL 02/22/24 09:50 Urine Urobilinogen (Auto) 0.2 mg/dL 02/22/24 09:50 Leukocyte Esterase (Auto) 0 Emerson/uL 02/22/24 09:50 Assessment & Plan Assessment & Plan (1) Hyperglycemia: Code(s): R73.9 - Hyperglycemia, unspecified Plan: Patient seen and evaluated. Vitals stable and there is no sign of CHF on examination such as lung adventicious sounds, leg edema or pozo/lower extremity skin changes. Labs reviewed from 04/2023 and yesterday Will obtain fasting glucose and hem A1C: fasting 131. Hem A1C 6.6 U/a: negative for glucoxe or ketones Will send message to patient's PCP and he has follow up next week. Will not add anything additional at this time Avised to monitor sugar intake and follow up closely with PCP Discussed s/s that warrant ER eval in the meantime Patient gave verbal understanding and had no additional questions or concerns at time of discharge All questions answered Orders: Orders AMB Urinalysis Automated Today E11.9 - Type 2 diabetes mellitus without complications Lipid Panel Today R73.9 - Hyperglycemia, unspecified AMB Hemoglobin A1c Today E11.9 - Type 2 diabetes mellitus without complications, Z13.9 - Encounter for screening, unspecified AMB Random Glucose (hemocue) Today E11.9 - Type 2 diabetes mellitus without complications Complete Blood Count Auto Diff Today R73.9 - Hyperglycemia, unspecified Coding Level of Care Code Est Pt Level 3 (34219) Diagnoses Hyperglycemia R73.9
[2024-02-22 09:28] VITALS: BP 130/84; PULSE 62; O2SAT 98; BMI 33.2
== END 2024-02-22 10:05 | disposition home or self-care (01) ==
PROVIDERS: PCP Internal Medicine; Visit Provider Physician Assistant
DX: Z13.9 Encounter for screening, unspecified (principal); E11.9 Type 2 diabetes mellitus without complications; R73.9 Hyperglycemia, unspecified

== ENCOUNTER → 2024-02-22 09:25 | Outpatient (BNVA) | payer MEDICARE, SELFPAY | PROVIDERS: PCP Internal Medicine; Visit Provider Physician Assistant | DX: R73.9 Hyperglycemia, unspecified (principal); I10 Essential (primary) hypertension | CPT/HCPCS: 81003; 82948; 83036; 99212 ==

== ENCOUNTER → 2024-04-27 08:00 | Outpatient (REF) | payer MEDICARE, SELFPAY ==
--- NOTE | 2024-04-27 08:03 | CA_ITS ---
Transthoracic Echocardiogram Patient (Last, First, Middle): Ori Tidwell J Gender: Male Date of : 1955 Age: 68 Procedure Date: 04/27/2024 Procedure Type: Transthoracic Echocardiogram Location: OP Height: 185.42 cm Weight: 104.33 kg BSA: 2.28 m2 Heart Rate: bpm BP: 158 / 84 mmHg Boiler Fitter: SANDY Referring MD: Silvestre Macias MD Vp Director Of Finance: Silvestre Macias MD Symptoms: R60.9 - Edema, unspecified Study Quality: Adequate ECG Rhythm: Sinus Conclusions: - 1. Normal LV ejection fraction of 65-70% with grade 3 diastolic dysfunction 2. Mild biatrial enlargement 3. Mild mitral regurgitation 4. Moderately elevated right ventricular systolic pressure and mildly elevated right atrial pressures 5. Upper limits of normal ascending aortic size 6. No gross pericardial effusion Findings Left Ventricle Normal left ventricular size, thickness, and systolic function. The visually estimated ejection fraction is between 65-70%. Spectral Doppler is indicative of a restrictive filling pattern. E/E prime ratio is >15, consistent with elevated filling pressures. Evidence suggests grade III (severe) diastolic dysfunction. Right Ventricle Normal right ventricular cavity size and systolic function. Atria The left atrium is mildly dilated. There is no evidence of interatrial shunt. The right atrium is mildly dilated. Aortic Valve Normal aortic valve structure and function. There is no aortic valve stenosis. There is no aortic valve regurgitation. Mitral Valve There is mild anterior and posterior mitral leaflet thickening. There is mild mitral valve regurgitation. There is no mitral valve stenosis. Pulmonic Valve The pulmonic valve is likely normal. There is trace to mild pulmonic valve regurgitation. Tricuspid Valve Normal tricuspid valve structure. There is mild tricuspid valve regurgitation. The right ventricular systolic pressure is 53 mmHg. Mildly elevated right atrial pressure. Moderate pulmonary hypertension is present. Great Vessels All visible segments of the aorta are normal in size. The pulmonary artery was not well visualized. There is no dilatation of the ascending aorta measuring 3.50 cm. Venous The inferior vena cava is moderately dilated and collapses greater than 50% with inspiration. Pericardium/Pleural There is no evidence of pericardial effusion. Prior Study Comparison Changes noted compared to prior study dated: 05/29/2001. RV systolic and right atrial pressures are increased Measurements 2D Linear Measurements IVSd: 1.06 0.6-0.9/0.6-1.0 cm LVIDd: 5.20 3.9-5.3/4.2-5.9 cm LVIDd Index: 2.28 2.4-3.2/2.2-3.1 cm/m2 LVIDs: 3.16 2.0-3.6 cm LVPWd: 1.02 0.7-1.1 cm LA Diam: 4.20 2.7-3.8/3.0-4.0 cm LAIDs Index: 1.84 1.5-2.3 cm/m2 LV Mass: 255.03 67-162/88-224 g LV Mass Index: 111.85 43-95/49-115 g/m2 LVOT Diam: 2.00 3.0+(-)1.3 cm 2D Systolic Function EF 4C: 67.40 >55% EF 2C: 66.30 >55% EF BiP: 66.50 >55% Mitral Valve MV Pk E: 1.37 MV PK A: 0.38 MV Decel Time: 213.00 E/A: 3.60 E'Lateral: 7.29 E'Medial: 5.22 E/E' Med: 26.20 E/E' Lat: 18.80 PHT: 62.00 MVA PHT: 3.55 Decel [place]: 6.45 Aortic Valve AoV Pk [place]: 1.49 AoV Mn Haider: 1.01 AoV VTI: 0.37 AoV Pk Grad: 9.00 Aov Mn Grad: 4.00 CHAYA Cont.VTI: 2.64 LVOT LVOT Pk [place]: 1.35 LVOT Mn Haider: 0.90 LVOT VTI: 0.31 LVOT Pk Grad: 7.00 LVOT Mn Grad: 4.00 LVOT Diam: 2.00 LVOT Area: 3.14 Diastolic Function MV Pk E: 1.37 MV Pk A: 0.38 E/A: 3.60 E'Medial: 5.22 E/E' Med: 26.20 E' Laterial: 7.29 E/E' Lat: 18.80 Right Ventricle TAPSE (mm): 25.90 TVS' [place]: 11.00 Tricuspid Valve TR Pk Haider: 3.37 TR Pk Grad: 45.00 RA Press: 8.00 RVSP: 53.00 Great Vessels Aorta Sinus of Valsalva: 3.48 2.0-3.[address] [place]: 2.94 1.7-3.4 cm Ao Asc: 3.50 2.1-3.4 cm Updated in Other Vendor System with Status of Final Silvestre Macias MD electronically signed on 04/28/2024 3:25:37 PM with status of Final
== END ==
LOC: HO.CARD 08:00
PROVIDERS: PCP Internal Medicine; Visit Provider Internal Medicine Cardiovascular Disease
DX: R60.9 Edema, unspecified (principal); I48.0 Paroxysmal atrial fibrillation; I10 Essential (primary) hypertension
CPT/HCPCS: 93306

== ENCOUNTER → 2024-04-27 08:03 | Outpatient (BNV) | payer MEDICARE, SELFPAY | PROVIDERS: PCP Internal Medicine; Visit Provider Internal Medicine Cardiovascular Disease | DX: I34.0 Nonrheumatic mitral (valve) insufficiency (principal); I37.1 Nonrheumatic pulmonary valve insufficiency; I36.1 Nonrheumatic tricuspid (valve) insufficiency; I51.7 Cardiomegaly | CPT/HCPCS: 93306 ==

== ENCOUNTER 2024-06-01 08:47 | Outpatient (AMB) | payer MEDICARE, SELFPAY ==
--- NOTE | 2024-06-01 08:52 | MHC.OFFVIS ---
Vital Signs 06/01/24 08:53 Height 6 ft 0.05 in Weight 251 lb 5.231 oz BMI 34.0 BP 120/80 Blood Pressure Location Lt brachial Position Sitting Pulse 64 Intake Visit Reasons: 1 year follow up Intake Note: 1 year follow-up with ekg feeling good Machine Leather Trimmer Required: No Allergies latex [LATEX] Allergy (Intermediate, Verified 01/28/24 13:22) RASH lisinopril Allergy (Intermediate, Verified 01/30/24 03:19) Angioedema Medication List - Last Reconciled 06/01/24 by Silvestre Macias MD acetaminophen 500 mg PO Q6H amlodipine 10 mg PO DAILY apixaban (Eliquis) 5 mg PO BID 90 days atorvastatin 10 mg PO QPM 90 days cholecalciferol (vitamin D3) 50 mcg PO DAILY 90 days cyanocobalamin (vitamin B-12) 1,000 mcg PO .weekly 90 days epinephrine (EpiPen) 0.3 mg (0.3 mL) IM Q4H PRN flecainide 100 mg PO Q12H gabapentin 800 mg PO TID 30 days losartan 25 mg PO DAILY metoprolol succinate ER 50 mg PO DAILY omeprazole 20 mg PO DAILY 90 days sertraline 50 mg PO DAILY sitagliptin phosphate (Januvia) 100 mg PO DAILY 90 days tamsulosin 0.4 mg PO BEDTIME 90 days HPI Comments Details: Ori comes for follow-up. Overall he has been doing well with no recurrent episodes of atrial fibrillation. Occasionally feels symptoms of shortness of breath and he takes flecainide although has not monitor his heart rhythm at that time. Recent echocardiogram shows normal LV ejection fraction but grade 3 diastolic dysfunction with elevated right ventricular systolic pressure mildly elevated right atrial pressures. He has intermittently noticed bilateral leg swelling without any apparent cause. Will also notice intermittent shortness of breath. However denies any progressive shortness of breath or orthopnea. He said he can not walk long distances because of neuropathy. He takes all his medications. No bleeding issues or neurologic events. Has been started on Jardiance for diabetes. [facility] Medical History Vitamin B12 deficiency Vitamin D deficiency Diabetes mellitus Diabetic neuropathy Elevated LFTs Pure hypercholesterolemia Obesity (BMI 30-39.9) Benign essential hypertension Fatty liver Arthritis GERD (gastroesophageal reflux disease) Current use of anticoagulant therapy Depression IBS (irritable bowel syndrome) HTN (hypertension) Paroxysmal atrial fibrillation Surgical History Hx of eye surgery H/O colonoscopy History of esophagogastroduodenoscopy (EGD) Hx of tonsillectomy History of cardiac radiofrequency ablation Hx of sinus surgery Family History Father Diabetes Mother No problems noted. 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 Current occupational exposures/hazards: No Cognitive needs: No Hearing needs: No Vision needs: No Review of Systems Const Denies chills, Denies fatigue, Denies fever(s), Denies frequent falls, Denies weakness, Denies weight gain and Denies weight loss ENT Denies dizziness Card Denies chest pain, Denies leg edema, Denies lightheadedness, Denies palpitations, Denies dyspnea, Denies dyspnea on exertion, Denies orthopnea and Denies other (loss of consciousness) Resp Denies cough, Denies dyspnea and Denies dyspnea on exertion GI Denies hematochezia and Denies change in stool character Musc Denies abnormal gait, Denies muscle weakness, Denies numbness, Denies radiating pain into limb and Denies tingling Neuro Denies abnormal gait, Denies dizziness, Denies frequent falls, Denies numbness, Denies tingling and Denies weakness Endo Denies fatigue and Denies palpitations Physical Exam Vital Signs: Last Vital Signs Pulse 64 06/01/24 08:53 BP 120/80 06/01/24 08:53 BMI result Body Mass Index 34.0 Const General: cooperative, comfortable, no acute distress, alert and awake Nutritional Appearance: overweight Orientation/consciousness: patient oriented x3 Limitations: no limitations Neck Neck: Yes trachea midline, Yes supple and Yes no JVD Resp Effort & Inspection: normal respiratory effort Auscultation: clear to auscultation bilaterally Cardio Jugular venous distension: no JVD Palpation: normal PMI Rate: regular rate Rhythm: regular rhythm Heart sounds: S1 normal heart sound present and S2 normal heart sound present GI Auscultation: normal bowel sounds Skin General skin exam: no rashes or lesions noted Neuro General: patient oriented x3 and no focal motor deficits Extrem General: Yes no clubbing, cyanosis or edema Psych Appearance: grossly normal Office Procedures EKG Details: EKG shows normal sinus rhythm with normal EKG 90362-Eihcredbkxsczfiir, Complete Assessment & Plan Assessment & Plan (1) Diastolic dysfunction: Code(s): I51.89 - Other ill-defined heart diseases Category: Medical Plan: Diastolic dysfunction with intermittent symptoms of leg swelling and shortness of breath are suggestive of incipient heart failure. Clinically appears to be euvolemic today. Will obtain baseline BNP and BNP. Will obtain of the blood work. Concern for advanced diastolic dysfunction without any other significant risk factors. Blood pressures remained control. Need to rule out restrictive cardiomyopathy. Will evaluate with serum and urine electrophoresis. If these are negative for amyloidosis given that he also has neuropathy this needs to be ruled out. If negative will pursued PYP scan and if that is negative will pursue cardiac MRI. This was discussed with him. Will provide him with p.r.nJuana Ridleyix if he develops significant fluid overload. He is going to participate in more dietary salt discretion. He understands management of heart failure. Did provide him with potential workup diagnosis. Continue aggressive blood pressure control. (2) Paroxysmal atrial fibrillation: Comment: sees Dr. Macias Code(s): I48.0 - Paroxysmal atrial fibrillation Category: Medical Plan: Paroxysmal atrial fibrillation which has overall remained suppressed after 2 ablation on current antiarrhythmic drug therapy with flecainide. Doing quite well from that perspective. Continue aggressive rhythm control approach. May benefit if he has recurrent atrial fibrillation with a 3rd ablation with a newer technology with PFA. Continue full oral anticoagulation, currently on Eliquis 5 mg b.i.d.. Semi annual renal function test should be pursued. Avoidance of stimulants was discussed. Continue aggressive blood pressure control. Will follow up in the clinic in 3 months time, sooner p.r.n.. Thank you for allowing me to partake in his care Orders: Orders Protein Electrophoresis,Ran Ur Today I48.0 - Paroxysmal atrial fibrillation Basic Metabolic Panel Today I48.0 - Paroxysmal atrial fibrillation B Type Natriuretic Peptide Today I48.0 - Paroxysmal atrial fibrillation Protein Electrophoresis, Serum Today I48.0 - Paroxysmal atrial fibrillation Coding Level of Care Code Est Pt Level 4 (90850) Complex EM visit Add On G2211 Diagnoses Diastolic dysfunction I51.89 Paroxysmal atrial fibrillation I48.0 CPT Codes EKG - CPT: 56750-Sgmcdpnitxurgxmxe, Complete ([id number])
[2024-06-01 08:53] VITALS: BP 120/80; PULSE 64; BMI 34.0
== END 2024-06-01 09:30 | disposition home or self-care (01) ==
PROVIDERS: PCP Internal Medicine; Visit Provider Internal Medicine Cardiovascular Disease
DX: I51.89 Other ill-defined heart diseases (principal); I48.0 Paroxysmal atrial fibrillation
CPT/HCPCS: 93010; 99214; G2211

== ENCOUNTER 2024-06-01 08:47 | Outpatient (REF) | payer MEDICARE, SELFPAY ==
[2024-06-01 10:52] LABS: Anion Gap 11 (12-20); Blood Urea Nitrogen 15 mg/dL (9-16); Calcium 9.7 mg/dL (8.4-10.2); Carbon Dioxide 28 mmol/L (22-29); Chloride 105 mmol/L (96-108); Estimated Glomerular Filt Rate > 60; Glucose Random 148 mg/dL (60-115); Potassium 3.9 mmol/L (3.3-5.1); Sodium 140 mmol/L (135-145)
[2024-06-01 10:54] LABS: B Type Natriuretic Peptide 123 pg/mL (<100)
[2024-06-05 13:24] LABS: Prot Elec - Albumin 4.2 g/dL (3.8-4.8); Prot Elec - Alpha1 0.3 g/dL (0.2-0.3); Prot Elec - Alpha2 0.7 g/dL (0.5-0.9); Prot Elec - Beta 1 0.5 g/dL (0.4-0.6); Prot Elec - Beta 2 0.5 g/dL (0.2-0.5); Prot Elec - Gamma 1.1 g/dL (0.8-1.7); Prot Elec - Total Protein 7.3 g/dL (6.1-8.1)
== END 2024-06-01 08:48 | disposition home or self-care (01) ==
LOC: HO.LAB 08:47
PROVIDERS: PCP Internal Medicine; Visit Provider Internal Medicine Cardiovascular Disease
DX: I48.0 Paroxysmal atrial fibrillation (principal); I51.89 Other ill-defined heart diseases
CPT/HCPCS: 36415; 80048; 83880; 84165; 93005; 99212

== ENCOUNTER 2024-06-06 08:00 | Outpatient (REF) | payer MEDICARE, SELFPAY ==
[2024-06-08 15:04] LABS: PEU-Protein Creat Ratio Rand 0.183 (0.025-0.148); PEU-Rand. Prot/Creat Ratio 183 mg/g creat (25-148); PEU-Random Ur. Gamma Globulin 0 %; PEU-Random Urine A1 Globulin 0 %; PEU-Random Urine A2 Globulin 0 %; PEU-Random Urine Albumin 100 %; PEU-Random Urine Beta Globulin 0 %; PEU-Random Urine Creatinine 186 mg/dL (20-320); PEU-Random Urine Protein 34 mg/dL (5-25)
== END 2024-06-06 08:01 | disposition home or self-care (01) ==
LOC: HO.LNP 08:00
PROVIDERS: Visit Provider Internal Medicine Cardiovascular Disease
DX: Z13.89 Encounter for screening for other disorder (principal)
CPT/HCPCS: 82570; 84156; 84166

== ENCOUNTER 2024-06-06 14:57 | Outpatient (REF) | payer MEDICARE, SELFPAY ==
[2024-06-06 16:18] LABS: Appearance Urine Clear; Color Urine Yellow; Glucose Urine UA Negative (Negative); Leukocyte Esterase Urine Negative (Negative); Nitrite Urine Negative (Negative); PH 5.5 (5.0-9.0); Urine Blood Negative (Negative); Urine Ketones Negative (Negative); Urine Protein Negative (Neg-Trace)
[2024-06-06 16:31] LABS: MANUAL DIFF FLAG NO
[2024-06-06 16:36] LABS: Basophils Absolute Auto 0.1 X10*3/uL (0.0-0.2); Basophils Percent Auto 0.7 % (0-2); Eosinophils Absolute Auto 0.5 X10*3/uL (0.0-0.4); Eosinophils Percent Auto 6.3 % (0-4); Hemoglobin 12.7 g/dl (14.0-18.0); Imm Gran Abs Auto 0.03 X10*3/uL (0.00-0.03); Imm Gran Pct Auto 0.4 % (0.0-0.4); Lymphocytes Absolute Auto 1.2 X10*3/uL (1.2-4.9); Lymphocytes Percent Auto 17.5 % (20-40); Mean Corpuscular HGB Conc 34.3 g/dl (31.0-36.0); Mean Corpuscular Hemoglobin 31.3 pg (27.0-33.0); Mean Corpuscular Volume 91.1 fL (80.0-98.0); Mean Platelet Volume 11.2 fL (9.4-12.4); Monocytes Absolute Auto 0.6 X10*3/uL (0.1-1.2); Monocytes Percent Auto 7.9 % (2-11); Neutrophils Absolute Auto 4.8 x10*3/uL (2.0-8.3); Neutrophils Percent Auto 67.2 % (45-73); Platelet Count 163 X10*3/uL (160-400); Red Blood Count 4.06 X10*6/uL (4.60-5.80); Red Cell Distribution Width 13.2 % (11.0-16.0); White Blood Count 7.1 X10*3/uL (4.8-10.8)
[2024-06-06 16:41] LABS: Estimated Average Glucose 169 mg/dL; Hemoglobin A1C 196.5715 umol/L; Hemoglobin A1c % 7.5 % (<6.0); Total Hemoglobin (HGBA1C) 3333.5533 umol/L
--- OUTSIDE RECORDS SUMMARY | 2024-06-06 16:56 | XMS_ITS ---
Author Organization [facility] Address [address] [place] [address] Care Team Providers Care Car Salter Name Role Phone Arturo CHERRY, Cuong Primary Care Provider UnaShashank Miller [facility] [phone] Encounters Encounter Location Date Provider Diagnosis [facility] [address] [place] [address] 03/22/2023 Shashank Hall Plan Of Treatment No Information Progress Notes * Ori TIDWELLDOB: (68 yo M)Acc No.[id number]:03/22/2023 Progress Notes Patient:?rOi TIDWELL Provider:?Shashank Hall DPM :1955???Age:67 Y???Sex:Male Chandler e:03/22/2023 Address:[address] [place], [place] [id number] Pcp:Cuong Morris MD Subjective: * Chief Complaints: * ??? * Medical History:? Objective: * Vitals:? Assessment: Plan: * Treatment: * Images: * The named appointment provid er may or may not be the originator of this progress note, and it is not deemed complete until electronically signed by the appointment provider. Sign off status: Pending * Provider:?Shashank Hall DPM Date:? 023 Generated for Lupe colón/Vania/eTransmitting on:?06/06/2024 04:56 PM EST
--- OUTSIDE RECORDS SUMMARY | 2024-06-06 16:56 | XMS_ITS ---
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 Generated for Printi ng/Asadg/eTransmitting on:?06/06/2024 04:56 PM EST
--- OUTSIDE RECORDS SUMMARY | 2024-06-06 16:57 | XMS_ITS | Patient Health Record ---
[facility] Address [address] [place] [address] Care Team Providers Care Molding Associate Name Role Phone Arturo CHERRY, [place] Primary Care Provider Unava Shashank Norman Unavailable [phone] Reason For Referral No Information Plan Of Treatment No Information Insurance Providers Payer Name Payer Address Payer Phone Subscriber Number Group Number Insured Name Patient Relationship to Insured Coverage Start Date Coverage End Date [facility] 65 Medicare Preferred [address] [place] [address] [phone] [id number] Ori Tidwell Self - patient is the insured
[2024-06-06 16:58] LABS: Creatinine Urine 96.81 mg/dL; Microalbum/Creatinine Ratio Ur 18.5 ug/mg cr (<30)
[2024-06-06 17:07] LABS: TSH reflex Free T4 2.01 uIU/mL (0.32-4.0); Vitamin D 25-OH Total 53.4 ng/mL (>30)
[2024-06-06 17:20] LABS: Folate 6.3 ng/mL (> or = 4.0); Vitamin B12 414 pg/mL (200-900)
== END 2024-06-06 14:58 | disposition home or self-care (01) ==
LOC: HO.HMGCLDS 14:57
PROVIDERS: PCP Internal Medicine; Visit Provider Internal Medicine
DX: D64.9 Anemia, unspecified (principal); E55.9 Vitamin D deficiency, unspecified; E53.8 Deficiency of other specified B group vitamins; R30.0 Dysuria; E78.00 Pure hypercholesterolemia, unspecified; E11.9 Type 2 diabetes mellitus without complications
CPT/HCPCS: 36415; 81003; 82043; 82306; 82570; 82607; 82746; 83036; 84156; 84166; 84443; 85025

== ENCOUNTER 2024-06-07 07:01 | Outpatient (REF) | payer MEDICARE, SELFPAY ==
--- OUTSIDE RECORDS SUMMARY | 2024-06-07 07:06 | XMS_ITS ---
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 Generated for Printi ng/Vania/eTransmitting on:?06/07/2024 07:05 AM EST
--- OUTSIDE RECORDS SUMMARY | 2024-06-07 07:06 | XMS_ITS | Patient Health Record ---
Author Organization [facility] Address [address] [place] [address] Care Team Providers Care Legal Referee Name Role Phone Arturo CHERRY, [place] Primary Care Provider Unava Shashank Norman Unavailable [phone] Reason For Referral No Information Plan Of Treatment No Information Insurance Providers Payer Name Payer Address Payer Phone Subscriber Number Group Number Insured Name Patient Relationship to Insured Coverage Start Date Coverage End Date [facility] 65 Medicare Preferred [address] [place] [address] [phone] [id number] Ori Tidwell Self - patient is the insured
--- OUTSIDE RECORDS SUMMARY | 2024-06-07 07:06 | XMS_ITS ---
Author Organization [facility] Address [address] [place] [address] Care Team Providers Care Heavy Coil Winder Name Role Phone Arturo CHERRY, [place] Primary Care Provider Unava ilable Jayson Carlson Unavailable [phone] REASON FOR VISIT called answering service Encounters Encounter Location Date Provider Diagnosis [facility] [address] [place] [address] 03/27/2024 Jayson Carlson PLAN OF TREATMENT Next Appt Details Provider Name:Jayson Carlson , 07/25/2024 11:10:00 AM, [address], [address], [place], [address],
--- OUTSIDE RECORDS SUMMARY | 2024-06-07 07:06 | XMS_ITS ---
Author Organization [facility] Address [address] [place] [address] Care Team Providers Care Filling Layer Up Name Role Phone Arturo CHERRY, Check Primary Care Provider Jayson Hummel Unavailable [phone] ALLERGIES Allergen (clinical drug ingredient) Drug/Non Drug Allergy documented on EMR Reaction Allergy Type Onset Date Status Latex Latex Unknown Allergy Active REASON FOR VISIT Patient presents today for elevated lft's MEDICATIONS Medication SIG (Take, Route, Frequency, Duration) Notes Start Date End Date Status Flecainide Acetate 100 MG as directed Or ally twice a day Active Omeprazole 20 MG TAKE 1 CAPSULE BY MO UTH EVERY DAY IN THE MORNING for 90 Active Lisinopril 20 MG 1 tablet Orally Once a day Active Sertraline HCl 50 MG 1 tablet Orally Once a day Active Januvia 100 MG TAKE 1 TABLET BY SHAHRIAR TH DAILY FOR 30 DAYS Oral for 30 Active amLODIPine Besylate 10 MG 1 tablet Orall y Once a day for 30 day(s) Active Eliquis 5 MG as directed Orally Active Metoprolol Succinate ER 50 MG 1 tablet Orally Once a day for 30 day(s) Active Gabapentin 600 MG 1 tablet Orally Once a day for 30 day(s) Active Ibuprofen Active IMMUNIZATIONS Vaccine Route Administration Date Status Comme nts Influenza Unknown 03/25/2023 Refused SOCIAL HISTORY Sex Assigned At : Social History Observation Description Sex Assigned At Unknown Alcohol Screen Question Answer Notes Did you have a drink contain ing alcohol in the past year? Yes How often did you have a dri nk containing alcohol in the past year? 2 to 3 times a week (3 points) How many drinks did you have on a typical day when you were drinking in the past year? 1 or 2 drinks (0 point) How often did you have 6 or more drinks on one occasion in the past year? Never (0 point) Points 3 Interpretation Negative VITAL SIGNS BMI 30.53 kg/m2 03/25/2023 Blood pressure systolic 000 mm Hg 03/25/20 23 Blood pressure diastolic 00 mm Hg 023 Height 72.50 in 03/25/2023 Temperature 96.9 degrees Fahrenheit 03/25/20 23 Weight 228 lb 4 oz lbs 03/25/2023 Encounters Encounter Location Date Provider Diagnosis [facility] [address] [place] [address] 03/25/2023 Jayson Carlson Fatty liver K76.0 ; Irritable bowel syndrome with both constipation and diarrhea K58.2 ; History of adenomatous polyp of colon Z86.010 ; Diverticulosis of colon K57.30 and GERD (gastroesophageal reflux disease) K21.9 ASSESSMENTS Encounter Date Diagnosis Assessment Notes Treatment Notes Treatment Clinical Notes 03/25/2023 Fatty liver (ICD-10 - K76.0) Continue to avoid alcohol and eat carefully, etc. 03/25/2023 Irritable bowel syndrome with both constipation and diarrhea (ICD-10 - K58.2) 03/25/2023 History of adenomatous polyp of colon (ICD-10 - Z86.010) 03/25/2023 Diverticulosis of colon (ICD-10 - K57.30) 03/25/2023 GERD (gastroesophageal reflux disease) (ICD-10 - K21.9) PLAN OF TREATMENT Treatment Notes Assessment Notes Fatty liver Continue to avoid al cohol and eat carefully, etc. Next Appt Details Follow Up: 1 Year, Reason: Provider Name:Jayson Carlson , 07/25/2024 11:10:00 AM, [address], [address], [place], [address], Progress Notes * Examination Category Sub-Category Detail Notes General Examination GENERAL APPEARANCE: in no ac natalie distress HEAD: normocephalic EYES: sclera non-icteric NECK/THYROID: no lymphadenopathy HEART: S1, S2 normal, no mu rmurs LUNGS: clear to auscultatio n bilaterally ABDOMEN: soft, nontender, non distended, bowel sounds present, no organomegaly SKIN: anicteric EXTREMITIES: no clubbing, cyanosi s, or edema ORAL CAVITY: mucosa moist
--- OUTSIDE RECORDS SUMMARY | 2024-06-07 07:06 | XMS_ITS | Patient Health Record ---
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 Phone Arturo CHERRY, [place] Primary Care Provider Jayson Hummel Unavailable [phone] ALLERGIES Allergen (clinical drug ingredient) Drug/Non Drug Allergy documented on EMR Reaction Allergy Type Onset Date Status Latex Latex Unknown Allergy Active REASON FOR REFERRAL No Information MEDICATIONS Medication SIG (Take, Route, Frequency, Duration) Notes Start Date End Date Status amLODIPine Besylate 10 MG 1 tablet Orall y Once a day for 30 day(s) Active Eliquis 5 MG as directed Orally Active Metoprolol Succinate ER 50 MG 1 tablet Orally Once a day for 30 day(s) Active Flecainide Acetate 100 MG as directed Or ally twice a day Active Omeprazole 20 MG TAKE 1 CAPSULE BY [facility] EVERY DAY IN THE MORNING for 90 Active Lisinopril 20 MG 1 tablet Orally Once a day Active Sertraline HCl 50 MG 1 tablet Orally Once a day Active Gabapentin 600 MG 1 tablet Orally Once a day for 30 day(s) Active Ibuprofen Active Januvia 100 MG TAKE 1 TABLET BY [facility] DAILY FOR 30 DAYS Oral for 30 Active IMMUNIZATIONS Vaccine Route Administration Date Status Comme nts Influenza Unknown 03/17/2020 Administered Influenza Unknown 03/18/2022 Administered Influenza Unknown 03/25/2023 Refused SOCIAL HISTORY Sex [...] Never (0 point) Points 3 Interpretation Negative PROBLEMS Problem Type ICD Code Onset Dates Problem Status W/U Status Risk SNOMED Code Notes Problem Colon cancer screening (Z12.11) Active confirmed 866041280 Problem History of adenomatous polyp of colon (Z86.010) Active confirmed 935453275 Problem Change in bowel habit (R19.4) Active confirmed 532375340 Problem Change in bowel habits (R19.4) Active confirmed 788426146 Problem Elevated liver enzymes (R74.8) Active confirmed Elevated frances er enzymes level (242024072) Problem Fatty liver (K76.0) Active confirmed Steatohepatitis (550628410) Problem Gastritis (K29.70) Active confirmed Gastritis (2158247) Problem GERD (gastroesophageal reflux disease) (K21.9) Active confirmed Gastroesophagea l reflux disease (951321697) Problem Fatigue, unspecified type (R53.83) Active confirmed 98956336 Problem Irritable bowel syndrome with both constipation and diarrhea (K58.2) Active confirmed 38644299 Problem Diverticulosis of colon (K57.30) Active confirmed Diverticulosi s of colon (720035356) Problem 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) Active confirmed 848470035 Encounters Encounter Location Date Provider Diagnosis [facility] [address] [place] [phone] 03/28/2024 Jayson Carlson [facility] [address] [place] [phone] 03/27/2024 Jayson Carlson PLAN OF TREATMENT Pending Test Test Name Order Date LIVER PROFILE 09/24/2022 LIVER PROFILE 11/27/2020 LIVER PROFILE 03/27/2022 LIVER PROFILE 09/16/2021 IRON + IBC (FE) 03/27/2022 IRON + IBC (FE) 09/16/2021 IRON + IBC (FE) 11/27/2020 FERRITIN 11/27/2020 FERRITIN 03/27/2022 ALPHA-FETOPROTEIN,TUMOR MARKER 2 CELIAC PANEL #10 11/27/2020 FLUOR. ANTINUCLEAR AB SCREEN (DAY) 03/17 TSH REFLEX FREE T4 11/27/2020 US ABDOMEN COMP WITH ELASTOGRAPHY 2020 Ferritin 09/16/2021 Alpha 1 Anti-trypsin 03/27/2022 Liver Fibrosis Pnl 09/16/2021 Mitochondrial Antibody 03/27/2022 Smooth Muscle Antibody 03/27/2022 Future Test Test Name Order Date COLONOSCOPY 07/01/2011 COLONOSCOPY 11/04/2016 UPPER GI ENDOSCOPY 03/30/2021 COLONOSCOPY 09/16/2021 Next Appt Details Provider Name:Jayson Carlson , 07/25/2024 11:10:00 AM, [address], [address], [place], [address], Insurance Providers Payer Name Payer Address Payer Phone Subscriber Number Group Number Insured Name Patient Relationship to Insured Coverage Start Date Coverage End Date [facility] [address] [place] [address] [id number] JUNE MUIR Self - patient is the insured MEDICAL (GENERAL) HISTORY Medical History History ICD Code HTN Denies SC,CVA,Lung disease,renal disease A-fib Sinus problems IBS Depression Colonoscopy in 2011 and 2016 with tubula r adenomas Fatty liver with elevated LF Ts-hepatitis B and C studies were negative in 2018-negative abdominal ultrasound in 2017; normal iron saturation and ferritin of 441 in 03/2021 EGD 04/2021 was negative for celiac disease, Carl's esophagus, and H. pylori. There was some evidence of mild gastritis and reflux for which he was started on omeprazole. Colonoscopy in October of 2021 revealed small tubular adenomas that were removed NIDDM LE Neuropathy Syncope with negative tilt table test 20 23 Surgical History Surgery Date(Month/Year) Eye surgery as a child Sinus surgery Tonsillectomy Vein surgery Hospitalization History Reason Date(Month/Year)
--- OUTSIDE RECORDS SUMMARY | 2024-06-07 07:06 | XMS_ITS ---
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
[2024-06-07 11:03] LABS: Alanine Aminotransferase 76 U/L (0-40); Alkaline Phosphatase 114 U/L (39-117); Anion Gap 11 (12-20); Aspartate Amino Transferase 73 U/L (5-37); Bilirubin Total 0.9 mg/dL (0.0-1.0); Blood Urea Nitrogen 15 mg/dL (9-16); Carbon Dioxide 29 mmol/L (22-29); Chloride 101 mmol/L (96-108); Cholesterol 198 mg/dL (<200); Estimated Glomerular Filt Rate > 60; Glucose Fasting 147 mg/dL (60-99); HDL Cholesterol 57 mg/dL (>40); LDL Cholesterol Calculated 118 mg/dL (<100); Potassium 3.5 mmol/L (3.3-5.1); Sodium 137 mmol/L (135-145); Total Protein 7.8 g/dL (6.5-8.0); Triglycerides 118 mg/dL (<150)
== END 2024-06-07 07:02 | disposition home or self-care (01) ==
LOC: HO.HMGCLDS 07:01
PROVIDERS: PCP Internal Medicine; Visit Provider Internal Medicine
DX: E78.00 Pure hypercholesterolemia, unspecified (principal)
CPT/HCPCS: 36415; 80053; 80061

== ENCOUNTER 2024-06-08 09:50 | Outpatient (AMB) | payer MEDICARE, SELFPAY ==
[2024-06-08 10:12] VITALS: BP 140/72; PULSE 71; O2SAT 96; BMI 34.0
--- NOTE | 2024-06-08 10:12 | MHC.PC.OV ---
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: No Accompanied by: Self / Same As Patient Allergies latex [LATEX] Allergy (Intermediate, Verified 06/09/24 05:18) RASH lisinopril Allergy (Intermediate, Verified 06/09/24 05:18) Angioedema Medication List - Last Reconciled 06/09/24 by Cuong Morris MD acetaminophen 500 mg PO Q6H amlodipine 10 mg PO DAILY apixaban (Eliquis) 5 mg PO BID 90 days atorvastatin 10 mg PO QPM 90 days cholecalciferol (vitamin D3) 50 mcg PO DAILY 90 days cyanocobalamin (vitamin B-12) 1,000 mcg PO .weekly 90 days epinephrine (EpiPen) 0.3 mg (0.3 mL) IM Q4H PRN flecainide 100 mg PO Q12H furosemide 20 mg PO DAILY PRN gabapentin 800 mg PO TID 30 days losartan 25 mg PO DAILY metformin ER 500 mg PO DAILY 90 days metoprolol succinate ER 50 mg PO DAILY omeprazole 20 mg PO DAILY 90 days sertraline 50 mg PO DAILY sitagliptin phosphate (Januvia) 100 mg PO DAILY 90 days tamsulosin 0.4 mg PO BEDTIME 90 days Tobacco use date assessed: 06/08/24 Fall risk assessment: No Falls in past year Last assessed Fall Risk: 06/08/24 Dental Screening Dental Screen Date: 06/08/24 Did you have a dental visit in the last 12 months?: No Did you have a dental problem in the last 6 months where you did not have access to dental care?: No Was dental information given to patient?: No HPI 4 month f/u HPI Details Patient comes in today for his follow-up visit States that he feels okay He denies any headaches or dizziness Denies any chest pains, no shortness of breath No nausea/vomiting, no abdominal pain No change in bowel habits noted States that he was recently advised by Cardiology that he may have possible cardiac amyloidosis due to some stiffness in his heart and he was sent for some additional labs for further evaluation and he is concerned about how these may come out He had his follow-up labs done yesterday as well - to discuss his results [facility] Medical History Vitamin B12 deficiency Vitamin D deficiency Diabetes mellitus Diabetic neuropathy Elevated LFTs Pure hypercholesterolemia Obesity (BMI 30-39.9) Benign essential hypertension Fatty liver Arthritis GERD (gastroesophageal reflux disease) Current use of anticoagulant therapy Depression IBS (irritable bowel syndrome) HTN (hypertension) Paroxysmal atrial fibrillation Surgical History Hx of eye surgery H/O colonoscopy History of esophagogastroduodenoscopy (EGD) Hx of tonsillectomy History of cardiac radiofrequency ablation Hx of sinus surgery Family History Father Diabetes Mother No problems noted. 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 1. Little interest or pleasure in doing things: several days 2. Feeling down, depressed, or hopeless: not at all 3. Trouble falling or staying asleep, or sleeping too much: not at all 4. Feeling tired or having little energy: not at all 5. Poor appetite or overeating: not at all 6. Feeling bad about yourself - or that you are a failure or have let yourself or your family down: not at all 7. Trouble concentrating on things, such as reading the newspaper or watching television: not at all 8. Moving or speaking so slowly that other people could have noticed. Or the opposite - being so fidgety or restless that you have been moving around a lot more than usual: not at all 9. Thoughts that you would be better off or of hurting yourself in some way: not at all Total score: 1 Depression Screening Interpretation: Negative Depression Screening Done: Yes 00696 - PHQ-9 Billing: Yes Source: Developed by Drs. Jayson Daniel, Rosemarie Westbrook, Blake Reveles and colleagues, with an educational daly from [employer]. Thrive Questionnaire Date Thrive assessed: 06/08/24 I am a: Patient What is your living situation today?: I have a steady place to live Within the past 12 months, did the food you bought not last and you didn't have the money to get more?: Never true Within the past 12 months, did you worry whether your food would run out before you got money to buy more?: Never true Do you have trouble paying for medicines?: No Do you have trouble getting transportation to medical appointments?: No Do you have trouble paying your heating and electricity bill?: No Do you have trouble taking care of your child, family member or friend?: No Do you have trouble with day-to-day activities such as bathing, preparing meals, shopping, managing finances, etc.?: No Are you currently unemployed and looking for a job?: No Are you interested in more education?: No Please select the resources that you would like help with: None Currently or been in a relationship where the following occur: No concerns reported THRIVE Score: 0 AUDIT C Alcohol Use Questionnaire (AUDIT-C) 1. How often do you have a drink containing alcohol?: 2-4 times a month 2. How many drinks containing alcohol do you have on a typical day when you are drinking?: 1 or 2 3. How often do you have six or more drinks on one occasion?: Never Total Score: 2 Score Reviewed/Action Taken: Yes ZI-7 AMB Questionnaire ZI-7 Date ZI - 7 assessed: 06/08/24 Feeling nervous, anxious, or on edge: 0 = Not at all Not being able to stop or control worryin = Not at all Worrying too much about different things: 0 = Not at all Trouble relaxin = Not at all Being so restless that it is hard to sit still: 0 = Not at all Becoming easily annoyed or irritable: 0 = Not at all Feeling afraid as if something awful might happen: 0 = Not at all Total ZI-7 score (0-4 normal; 5-9 mild; 10-14 moderate; 15-21 severe): 0 Source: Developed by Drs. Jyason Daniel, Rosemarie Westbrook, Blake Reveles and colleagues, with an educational daly from [employer]. Review of Systems Const Denies chills, Denies fatigue, Denies fever(s) and Denies headache(s) ENT Denies dysphagia, Denies dizziness, Denies otalgia, Denies headache(s), Denies neck pain, Denies odynophagia and Denies sore throat Card Denies chest pain, Denies palpitations and Denies dyspnea Resp Denies chest congestion, Denies cough and Denies dyspnea GI Denies abdominal pain, Denies constipation, Denies dysphagia, Denies heartburn, Denies diarrhea, Denies nausea, Denies odynophagia and Denies vomiting Denies difficulty urinating, Denies dysuria, Reports nocturia and Reports urinary frequency Musc Reports back pain (more manageable currently), Denies neck pain and Reports radiating pain into limb (occasionally, into the right leg) Skin/Breast Denies rash Neuro Denies dizziness and Denies headache(s) Endo Denies fatigue and Denies palpitations Physical exam (Primary Care) Vital Signs: Last Vital Signs Pulse 71 06/08/24 10:12 BP 140/72 H 06/08/24 10:12 Pulse Ox 96 06/08/24 10:12 Oxygen Delivery Method Room Air 06/08/24 10:12 BMI result Body Mass Index 34.0 Tobacco/Smoking Status: Tobacco use Status Tobacco use date assessed 06/08/24 06/08/24 10:26 Patient Tobacco Use Status Former Tobacco user 06/08/24 10:12 e-Cigarette/Vaping Use Never Used 06/08/24 10:12 PHQ-9: PHQ-9 Score PHQ-9: Total score 1 06/09/24 05:31 Depression Screening Interpretation: Negative Thrive Assessment: Date of Thrive Assessment Date Thrive assessed 06/08/24 06/08/24 10:26 Currently or been in a relationship where the following occur: No concerns reported Const General: no acute distress and alert HENMT Ears: TM's normal bilaterally and EAC's normal Throat: Yes posterior oropharynx normal and Yes tonsils normal (no TP congestion) Neck Neck: Yes supple and No lymphadenopathy Thyroid: Thyroid normal Resp Auscultation: clear to auscultation bilaterally, no rales and no wheezes Cardio Rate: regular rate Rhythm: regular rhythm Heart sounds: no murmurs GI Palpation (GI): Soft to palpation and nontender Auscultation: normal bowel sounds General: Yes no CVA tenderness Back/Spine/Pelvis Back: no CVA tenderness Thoracic/Lumbar Spine: lumbar spinal tenderness (mild) and straight leg raise positive (slightly) Skin Rashes: no rashes Extrem General: Yes no clubbing, cyanosis or edema Results Reviewed Results Reviewed: Laboratory Tests 06/06/24 06/07/24 15:05 07:07 WBC 7.1 Hgb 12.7 L Hct 37.0 L Plt Count 163 Sodium 137 Potassium 3.5 Creatinine 0.96 Estimated GFR > 60 Fasting Glucose 147 H Hemoglobin A1c % 7.5 H Calcium 10.0 AST 73 H ALT 76 H Laboratory Tests 06/01/24 06/06/24 06/06/24 09:59 08:00 14:50 PEP Interpretation SEE NOTE Triglycerides Cholesterol LDL Cholesterol, Calc HDL Cholesterol Vitamin B12 25-OH Vitamin D Total TSH Ur Specific [place] 1.020 Urine Protein Negative Urine Glucose (UA) Negative Urine Blood Negative Urine Nitrite Negative Ur Leukocyte Esterase Negative Microalb/Creat Ratio 18.5 Urine PEP Interpret SEE NOTE 06/06/24 06/07/24 15:05 07:07 PEP Interpretation Triglycerides 118 Cholesterol 198 LDL Cholesterol, Calc 118 H HDL Cholesterol 57 Vitamin B12 414 25-OH Vitamin D Total 53.4 TSH 2.01 Ur Specific [place] Urine Protein Urine Glucose (UA) Urine Blood Urine Nitrite Ur Leukocyte Esterase Microalb/Creat Ratio Urine PEP Interpret Coding Level of Care Code Est Pt Level 4 (35745) Complex EM visit Add On G2211 Diagnoses Paroxysmal atrial fibrillation I48.0 Diastolic dysfunction I51.89 Type 2 diabetes mellitus without complication, without long-term current use of insulin E11.9 Diabetes mellitus complication status: without complication Diabetes mellitus detention insulin use: without terminal computer operator use Diabetes mellitus type: type 2 Benign essential hypertension I10 Pure hypercholesterolemia E78.00 Elevated LFTs R79.89 Gastroesophageal reflux disease without esophagitis K21.9 Esophagitis presence: without esophagitis Right-sided low back pain with right-sided sciatica, unspecified chronicity M54.41 Back pain laterality: right Chronicity: unspecified Sciatica laterality: sciatica of right side Sciatica presence: with sciatica Lumbar radiculopathy M54.16 Diabetic polyneuropathy associated with type 2 diabetes mellitus E11.42 Diabetes mellitus type: type 2 Diabetes mellitus complication detail: diabetic polyneuropathy Vitamin D deficiency E55.9 Vitamin B12 deficiency E53.8 Episode of recurrent major depressive disorder, unspecified depression episode severity F33.9 Active/Remission status: currently active Depression Type: major depressive disorder Major depression episode severity: unspecified Major depression recurrence: recurrent Obesity (BMI 30-39.9) E66.9 Additional Codes PHQ-9 - 89210 - PHQ-9 Billing: Yes ([id number]) Assessment & Plan Assessment & Plan (1) Paroxysmal atrial fibrillation: Comment: sees Dr. Macias Code(s): I48.0 - Paroxysmal atrial fibrillation Category: Medical Plan: S/P ablation x 2 Patient currently remains in sinus bradycardia Continue Fleicanide 100 mg Q 12 hours and Metoprolol ER 50 mg QD Continue Eliquis 5 mg BID for thromboembolism prophylaxis Echocardiogram done in May 2021 showed normal LV systolic function with basal septal hypertrophy with mild mitral and tricuspid regurgitation and mild pulmonary hypertension Repeat echocardiogram on 04/27/2024 revealed normal LV ejection fraction of 65-70% with grade 3 diastolic dysfunction, mild biatrial enlargement, mild mitral regurgitation, moderately elevated right ventricular systolic pressure and mildly elevated right atrial pressures, upper limits of normal ascending aortic size and no gross pericardial effusion Follow up with cardiology as scheduled (2) Diastolic dysfunction: Code(s): I51.89 - Other ill-defined heart diseases Category: Medical Plan: Recent echocardiogram done in April 2024 revealed (+) grade 3 diastolic dysfunction Cardiology has recently mentioned to him that he appears to have advanced diastolic dysfunction without any other significant risk factors and his recent findings may suggest incipient heart failure He was sent for some additional work ups, including serum and urine electrophoresis to help assess for possible amyloidosis Neuropathy will also need to be ruled out If his tests are all negative, cardiology will likely pursue PYP scan and if that is negative will send him for cardiac MRI for further evaluation He was provided with some Furosemide 20 mg to take PRN for edema and fluid overload Follow up with cardiology as scheduled (3) Diabetes mellitus: Code(s): E11.9 - Type 2 diabetes mellitus without complications Category: Medical Qualifiers: Diabetes mellitus complication status: without complication Diabetes mellitus terminal computer operator insulin use: without terminal computer operator use Diabetes mellitus type: type 2 Qualified Code(s): E11.9 - Type 2 diabetes mellitus without complications Plan: His HgbA1c was at 7.5% on his labs done a couple of days ago (in-office HgbA1c was at 6.6% back in February 2024) - goal is at least <7.0% but ideally <6.5% Reinforced diabetic diet Continue Januvia 100 mg QD; will start him additionally on Metformin ER 500 mg QD Will recheck his FBS and HgbA1c in 4 months for follow up (4) Benign essential hypertension: Code(s): I10 - Essential (primary) hypertension Category: Medical Plan: Reinforced low sodium diet - goal is systolic BP of at least 120 to 130 mm or less Continue Losartan 25 mg QD, Amlodipine 10 mg QD and Metoprolol ER 50 mg QD Patient is reminded to continue monitoring his blood pressure regularly (5) Pure hypercholesterolemia: Code(s): E78.00 - Pure hypercholesterolemia, unspecified Category: Medical Plan: Results of his labs done a couple of days ago reviewed and discussed with patient - he is cautioned that his cholesterol levels have increased from previous Reinforced low cholesterol diet Continue Atorvastatin 10 mg Q PM for now but he is advised that this will have to be increased if his cholesterol numbers do not improve significantly at his next follow up visit Will have him recheck his labs and fasting lipids in 4 months for follow up (6) Elevated LFTs: Code(s): R79.89 - Other specified abnormal findings of blood chemistry Category: Medical Plan: Patient is advised that his LFTs have also increased from previous He admits that he has been drinking some alcohol and also has been taking a lot of Tylenol lately for his joint pains and will try to cut back on these We will continue to monitor his LFTs regularly (7) GERD (gastroesophageal reflux disease): Code(s): K21.9 - Gastro-esophageal reflux disease without esophagitis Category: Medical Qualifiers: Esophagitis presence: without esophagitis Qualified Code(s): K21.9 - Gastro-esophageal reflux disease without esophagitis Plan: Dietary restrictions reinforced Continue Omeprazole 20 mg QD (8) Low back pain: Code(s): M54.50 - Low back pain, unspecified Category: Medical Qualifiers: Back pain laterality: right Chronicity: unspecified Sciatica laterality: sciatica of right side Sciatica presence: with sciatica Qualified Code(s): M54.41 - Lumbago with sciatica, right side Plan: Reinforced activity and weight-lifting restrictions to avoid aggravating his low back pain He was seen by pain management last year and sent for MRI of the lumbar spine for further evaluation and to physical therapy Patient did not get his MRI done as his back was feeling better after a while and he opted not to go for the procedure He also was not seen by physical therapy - states that he chose not to schedule his sessions when his back pain felt better and more manageable with his current Rx Continue Gabapentin 800 mg TID (9) Lumbar radiculopathy: Code(s): M54.16 - Radiculopathy, lumbar region Category: Medical Plan: Patient was sent for MRI of the lumbar spine by pain management but he decided not to go for the procedure when his back pain and related symptoms started feeling better States that his symptoms are currently manageable and he does not wish to pursue any additional testing at this time (10) Diabetic neuropathy: Code(s): E11.40 - Type 2 diabetes mellitus with diabetic neuropathy, unspecified Category: Medical Qualifiers: Diabetes mellitus type: type 2 Diabetes mellitus complication detail: diabetic polyneuropathy Qualified Code(s): E11.42 - Type 2 diabetes mellitus with diabetic polyneuropathy Plan: Patient's EMG & NCV done back on 10/28/22 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 His EMG of the right L4-S1 innervated muscles are consistent with mild distal chronic neuropathic changes Continue Gabapentin 800 mg TID (11) Vitamin D deficiency: Code(s): E55.9 - Vitamin D deficiency, unspecified Category: Medical Plan: Continue Vitamin D3 2000 units QD (12) Vitamin B12 deficiency: Code(s): E53.8 - Deficiency of other specified B group vitamins Category: Medical Plan: Continue OTC Vitamin B12 tablets 1000 mcg once or twice a week (13) Depression: Code(s): F32.A - Depression, unspecified Category: Medical Qualifiers: Active/Remission status: currently active Depression Type: major depressive disorder Major depression episode severity: unspecified Major depression recurrence: recurrent Qualified Code(s): F33.9 - Major depressive disorder, recurrent, unspecified Plan: Continue Sertraline 50 mg QD (14) Obesity (BMI 30-39.9): Code(s): E66.9 - Obesity, unspecified Category: Medical Plan: Reinforced diet/exercise as tolerated/lose weight Plan Follow up in 4 months Orders: Orders Complete Blood Count Auto Diff 4 Months D64.9 - Anemia, unspecified Comprehensive [place]. Panel Fast 4 Months E78.00 - Pure hypercholesterolemia, unspecified TSH reflex Free T4 4 Months E78.00 - Pure hypercholesterolemia, unspecified Vitamin D 25-OH Total 4 Months E55.9 - Vitamin D deficiency, unspecified Lipid Panel 4 Months E78.00 - Pure hypercholesterolemia, unspecified Microalbumin, Random (w Creat) 4 Months E11.9 - Type 2 diabetes mellitus without complications UA CC w/rflx Micro + Cult 4 Months R30.0 - Dysuria Hemoglobin A1c 4 Months E11.9 - Type 2 diabetes mellitus without complications Medications: New metformin ER 500 mg PO DAILY 90 days 90 tabs 1RF
== END 2024-06-08 11:08 | disposition home or self-care (01) ==
PROVIDERS: PCP Internal Medicine; Visit Provider Internal Medicine
DX: I48.0 Paroxysmal atrial fibrillation (principal); I51.89 Other ill-defined heart diseases; E11.42 Type 2 diabetes mellitus with diabetic polyneuropathy; I10 Essential (primary) hypertension; E78.00 Pure hypercholesterolemia, unspecified; R79.89 Other specified abnormal findings of blood chemistry; K21.9 Gastro-esophageal reflux disease without esophagitis; M54.41 Lumbago with sciatica, right side; M54.16 Radiculopathy, lumbar region; E55.9 Vitamin D deficiency, unspecified; E53.8 Deficiency of other specified B group vitamins; F33.9 Major depressive disorder, recurrent, unspecified; E66.9 Obesity, unspecified

== ENCOUNTER → 2024-06-08 09:50 | Outpatient (BNVA) | payer MEDICARE, SELFPAY | PROVIDERS: PCP Internal Medicine; Visit Provider Internal Medicine | DX: I48.0 Paroxysmal atrial fibrillation (principal); I51.89 Other ill-defined heart diseases; E11.9 Type 2 diabetes mellitus without complications; E78.00 Pure hypercholesterolemia, unspecified; I10 Essential (primary) hypertension; R79.89 Other specified abnormal findings of blood chemistry; K21.9 Gastro-esophageal reflux disease without esophagitis; M54.41 Lumbago with sciatica, right side; M54.16 Radiculopathy, lumbar region; E11.42 Type 2 diabetes mellitus with diabetic polyneuropathy; E55.9 Vitamin D deficiency, unspecified; E53.8 Deficiency of other specified B group vitamins; F33.9 Major depressive disorder, recurrent, unspecified; E66.9 Obesity, unspecified | CPT/HCPCS: 96127; 99212 ==

== ENCOUNTER 2024-10-11 07:26 | Outpatient (REF) | payer MEDICARE, SELFPAY ==
--- OUTSIDE RECORDS SUMMARY | 2024-10-11 07:29 | XMS_ITS ---
Author Organization [facility] Address [address] [place] [address] Care Team Providers Care Envelope Patternmaker Name Role Phone Arturo CHERRY, Tyrone Primary Care Provider Unava Jayson Alcocer [phone] REASON FOR VISIT cancel Encounters Encounter Location Date Provider Diagnosis [facility] [address] [place] [address] 07/25/2024 Jayson Carlson Plan Of Treatment Next Appt Details Provider Name:Jayson Carlson , 11/16/2024 11:00:00 AM, [address], [address], [place], [address], Progress Notes * JUNE MUIRDOB: [birth year] (68 yo M)Acc No.[id number]:07/25/2024 Patient:?JUNE MUIR :1955???Age:68 Y???Sex:Male Address:[address] [place] [address] [place], [address] * true * Date:? Generated for Printi ng/Facatalinog/eTransmitting on:?10/11/2024 07:29 AM EDT
[2024-10-11 10:18] LABS: MANUAL DIFF FLAG NO
[2024-10-11 10:22] LABS: Appearance Urine Clear; Color Urine Dark Yellow; Glucose Urine UA Negative (Negative); Leukocyte Esterase Urine Negative (Negative); Nitrite Urine Negative (Negative); PH 5.5 (5.0-9.0); Specific Gravity - Urine 1.025 (1.005-1.025); Urine Blood Negative (Negative); Urine Ketones Trace mg/dL (Negative); Urine Protein Trace mg/dL (Neg-Trace)
[2024-10-11 10:28] LABS: Basophils Percent Auto 0.6 % (0-2); Eosinophils Absolute Auto 0.7 X10*3/uL (0.0-0.4); Hematocrit 39.3 % (42.0-52.0); Imm Gran Abs Auto 0.03 X10*3/uL (0.00-0.03); Imm Gran Pct Auto 0.5 % (0.0-0.4); Lymphocytes Absolute Auto 1.5 X10*3/uL (1.2-4.9); Lymphocytes Percent Auto 23.9 % (20-40); Mean Corpuscular HGB Conc 33.1 g/dl (31.0-36.0); Mean Corpuscular Hemoglobin 30.3 pg (27.0-33.0); Mean Corpuscular Volume 91.6 fL (80.0-98.0); Mean Platelet Volume 11.1 fL (9.4-12.4); Monocytes Absolute Auto 0.6 X10*3/uL (0.1-1.2); Monocytes Percent Auto 9.7 % (2-11); Neutrophils Absolute Auto 3.4 x10*3/uL (2.0-8.3); Neutrophils Percent Auto 54.3 % (45-73); Platelet Count 158 X10*3/uL (160-400); Red Blood Count 4.29 X10*6/uL (4.60-5.80); Red Cell Distribution Width 13.1 % (11.0-16.0); White Blood Count 6.2 X10*3/uL (4.8-10.8)
[2024-10-11 10:38] LABS: Estimated Average Glucose 177 mg/dL; Hemoglobin A1C 209.2671 umol/L; Hemoglobin A1c % 7.8 % (<6.0); Total Hemoglobin (HGBA1C) 3408.1119 umol/L
[2024-10-11 10:57] LABS: Alanine Aminotransferase 78 U/L (0-40); Albumin Level 4.3 g/dL (3.5-5.0); Alkaline Phosphatase 104 U/L (39-117); Anion Gap 13 (12-20); Aspartate Amino Transferase 106 U/L (5-37); Bilirubin Total 0.9 mg/dL (0.0-1.0); Blood Urea Nitrogen 19 mg/dL (9-16); Calcium 9.8 mg/dL (8.4-10.2); Carbon Dioxide 27 mmol/L (22-29); Chloride 103 mmol/L (96-108); Cholesterol 171 mg/dL (<200); Estimated Glomerular Filt Rate > 60; Glucose Fasting 159 mg/dL (60-99); HDL Cholesterol 56 mg/dL (>40); LDL Cholesterol Calculated 95 mg/dL (<100); Potassium 4.2 mmol/L (3.3-5.1); Sodium 139 mmol/L (135-145); Total Protein 7.7 g/dL (6.5-8.0); Triglycerides 102 mg/dL (<150)
[2024-10-11 11:00] LABS: TSH reflex Free T4 2.53 uIU/mL (0.32-4.0); Vitamin D 25-OH Total 44.1 ng/mL (>30)
[2024-10-11 11:02] LABS: Creatinine Urine 175.55 mg/dL; Microalbum/Creatinine Ratio Ur 11.3 ug/mg cr (<30)
== END 2024-10-11 07:27 | disposition home or self-care (01) ==
LOC: HO.HMGCLDS 07:26
PROVIDERS: PCP Internal Medicine; Visit Provider Internal Medicine
DX: D64.9 Anemia, unspecified (principal); E78.00 Pure hypercholesterolemia, unspecified; R30.0 Dysuria; E55.9 Vitamin D deficiency, unspecified; E11.9 Type 2 diabetes mellitus without complications
CPT/HCPCS: 36415; 80053; 80061; 81003; 82043; 82306; 82570; 83036; 84443; 85025

== ENCOUNTER 2024-10-12 09:15 | Outpatient (AMB) | payer MEDICARE, SELFPAY ==
[2024-10-12 09:25] VITALS: BP 138/86; PULSE 82; O2SAT 96; BMI 32.4
--- NOTE | 2024-10-12 09:25 | MHC.PC.OV ---
Vital Signs 10/12/24 09:25 Height 6 ft 0.5 in Weight 242 lb 4 oz BMI 32.4 BP 138/86 Blood Pressure Location Lt brachial Position Sitting Pulse 82 Pulse Source Pulse Oximeter Pulse Oximetry (%) 96 Oxygen Delivery Method Room Air Intake Visit Reasons: DM, hyperlipidemia, elevated LFTs Transmission Repairer Required: No Accompanied by: Self / Same As Patient Allergies latex [LATEX] Allergy (Intermediate, Verified 10/12/24 10:01) RASH lisinopril Allergy (Intermediate, Verified 10/12/24 10:01) Angioedema Medication List - Last Reconciled 10/12/24 by Cuong Morris MD acetaminophen 500 mg PO Q6H amlodipine 10 mg PO DAILY apixaban (Eliquis) 5 mg PO BID 90 days atorvastatin 10 mg PO QPM 90 days cholecalciferol (vitamin D3) 50 mcg PO DAILY 90 days cyanocobalamin (vitamin B-12) 1,000 mcg PO .weekly 90 days epinephrine (EpiPen) 0.3 mg (0.3 mL) IM Q4H PRN flecainide 100 mg PO Q12H furosemide 20 mg PO DAILY gabapentin 800 mg PO TID 30 days losartan 25 mg PO DAILY metformin ER 500 mg PO DAILY 90 days metoprolol succinate ER 50 mg PO DAILY omeprazole 20 mg PO DAILY 90 days sertraline 50 mg PO DAILY sitagliptin phosphate (Januvia) 100 mg PO DAILY 90 days tamsulosin 0.8 mg (2 x 0.4 mg) PO BEDTIME 90 days tirzepatide (Mounjaro) 2.5 mg (0.5 mL) subcut QWEEK 4 weeks Tobacco use date assessed: 10/12/24 Fall risk assessment: 2 + Falls in past year Last assessed Fall Risk: 10/12/24 Dental Screening Dental Screen Date: 10/12/24 Did you have a dental visit in the last 12 months?: No Did you have a dental problem in the last 6 months where you did not have access to dental care?: No Was dental information given to patient?: No HPI DM, hyperlipidemia, elevated LFTs HPI Details Patient comes in today for his follow-up visit States that he feels okay He denies any headaches or dizziness Denies any chest pains, no shortness of breath No nausea/vomiting, no abdominal pain No change in bowel habits noted Patient also reports experiencing increased urinary frequency lately, especially late in the afternoon and at night He denies any dysuria He had his follow-up labs done yesterday - to discuss his results [facility] Medical History (Updated 10/15/24 @ 17:00 by Cuong Morris MD) Urinary frequency Vitamin B12 deficiency Vitamin D deficiency Diabetes mellitus Diabetic neuropathy Elevated LFTs Pure hypercholesterolemia Obesity (BMI 30-39.9) Benign essential hypertension Fatty liver Arthritis GERD (gastroesophageal reflux disease) Current use of anticoagulant therapy Depression IBS (irritable bowel syndrome) HTN (hypertension) Paroxysmal atrial fibrillation Surgical History Hx of eye surgery H/O colonoscopy History of esophagogastroduodenoscopy (EGD) Hx of tonsillectomy History of cardiac radiofrequency ablation Hx of sinus surgery Family History Father Diabetes Mother No problems noted. 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 1. Little interest or pleasure in doing things: not at all 2. Feeling down, depressed, or hopeless: not at all 3. Trouble falling or staying asleep, or sleeping too much: not at all 4. Feeling tired or having little energy: not at all 5. Poor appetite or overeating: not at all 6. Feeling bad about yourself - or that you are a failure or have let yourself or your family down: not at all 7. Trouble concentrating on things, such as reading the newspaper or watching television: not at all 8. Moving or speaking so slowly that other people could have noticed. Or the opposite - being so fidgety or restless that you have been moving around a lot more than usual: not at all 9. Thoughts that you would be better off or of hurting yourself in some way: not at all Total score: 0 Depression Screening Interpretation: Negative Depression Screening Done: Yes 38408 - PHQ-9 Billing: Yes Source: Developed by Drs. Jayson Daniel, Rosemarie Westbrook, Blake Reveles and colleagues, with an educational daly from [employer]. Thrive Questionnaire Date Thrive assessed: 10/12/24 I am a: Patient What is your living situation today?: I have a steady place to live Within the past 12 months, did the food you bought not last and you didn't have the money to get more?: I choose not to answer this question Within the past 12 months, did you worry whether your food would run out before you got money to buy more?: I choose not to answer this question Do you have trouble paying for medicines?: Yes Do you have trouble getting transportation to medical appointments?: No Do you have trouble paying your heating and electricity bill?: No Do you have trouble taking care of your child, family member or friend?: No Do you have trouble with day-to-day activities such as bathing, preparing meals, shopping, managing finances, etc.?: No Are you currently unemployed and looking for a job?: No Are you interested in more education?: No Please select the resources that you would like help with: None Currently or been in a relationship where the following occur: I choose not to answer THRIVE Score: 0 AUDIT C Alcohol Use Questionnaire (AUDIT-C) 1. How often do you have a drink containing alcohol?: 2-3 times a week 2. How many drinks containing alcohol do you have on a typical day when you are drinking?: 1 or 2 3. How often do you have six or more drinks on one occasion?: Never Total Score: 3 Score Reviewed/Action Taken: Yes ZI-7 AMB Questionnaire ZI-7 Date ZI - 7 assessed: 10/12/24 Feeling nervous, anxious, or on edge: 0 = Not at all Not being able to stop or control worryin = Not at all Worrying too much about different things: 0 = Not at all Trouble relaxin = Not at all Being so restless that it is hard to sit still: 0 = Not at all Becoming easily annoyed or irritable: 0 = Not at all Feeling afraid as if something awful might happen: 0 = Not at all Total ZI-7 score (0-4 normal; 5-9 mild; 10-14 moderate; 15-21 severe): 0 Source: Developed by Drs. Jayson Daniel, Rosemarie Westbrook, Blake Reveles and colleagues, with an educational daly from [employer]. Review of Systems Const Denies chills, Denies fatigue, Denies fever(s) and Denies headache(s) ENT Denies dysphagia, Denies dizziness, Denies otalgia, Denies headache(s), Denies neck pain, Denies odynophagia and Denies sore throat Card Denies chest pain, Denies palpitations and Denies dyspnea Resp Denies chest congestion, Denies cough and Denies dyspnea GI Denies abdominal pain, Denies constipation, Denies dysphagia, Denies heartburn, Denies diarrhea, Denies nausea, Denies odynophagia and Denies vomiting Denies difficulty urinating, Denies dysuria, Reports nocturia and Reports urinary frequency Musc Reports back pain (more manageable currently), Denies neck pain and Reports radiating pain into limb (occasionally, into the right leg) Skin/Breast Denies rash Neuro Denies dizziness and Denies headache(s) Endo Denies fatigue and Denies palpitations Physical exam (Primary Care) Vital Signs: Last Vital Signs Pulse 82 10/12/24 09:25 BP 138/86 10/12/24 09:25 Pulse Ox 96 10/12/24 09:25 Oxygen Delivery Method Room Air 10/12/24 09:25 BMI result Body Mass Index 32.4 Tobacco/Smoking Status: Tobacco use Status Tobacco use date assessed 10/12/24 10/12/24 09:30 Patient Tobacco Use Status Former Tobacco user 10/12/24 09:30 e-Cigarette/Vaping Use Never Used 10/12/24 09:30 PHQ-9: PHQ-9 Score PHQ-9: Total score 0 10/12/24 10:04 Depression Screening Interpretation: Negative Thrive Assessment: Date of Thrive Assessment Date Thrive assessed 10/12/24 10/12/24 09:30 Currently or been in a relationship where the following occur: I choose not to answer Const General: no acute distress and alert HENMT Ears: TM's normal bilaterally and EAC's normal Throat: Yes posterior oropharynx normal and Yes tonsils normal (no TP congestion) Neck Neck: Yes supple and No lymphadenopathy Thyroid: Thyroid normal Resp Auscultation: clear to auscultation bilaterally, no rales and no wheezes Cardio Rate: regular rate Rhythm: regular rhythm Heart sounds: no murmurs GI Palpation (GI): Soft to palpation and nontender Auscultation: normal bowel sounds General: Yes no CVA tenderness Back/Spine/Pelvis Back: no CVA tenderness Thoracic/Lumbar Spine: lumbar spinal tenderness (mild) and straight leg raise positive (slightly) Skin Rashes: no rashes Extrem General: Yes no clubbing, cyanosis or edema Results Reviewed Results Reviewed: Laboratory Tests 10/11/24 07:33 WBC 6.2 Hgb 13.0 L Hct 39.3 L Plt Count 158 L Sodium 139 Potassium 4.2 Creatinine 1.02 Estimated GFR > 60 Fasting Glucose 159 H Hemoglobin A1c % 7.8 H Calcium 9.8 AST 106 H ALT 78 H Alkaline Phosphatase 104 Triglycerides 102 Cholesterol 171 LDL Cholesterol, Calc 95 HDL Cholesterol 56 25-OH Vitamin D Total 44.1 TSH 2.53 Ur Specific [place] 1.025 Urine Protein Trace Urine Glucose (UA) Negative Urine Blood Negative Urine Nitrite Negative Ur Leukocyte Esterase Negative Coding Level of Care Code Est Pt Level 4 (68394) Complex EM visit Add On G2211 Diagnoses Type 2 diabetes mellitus without complication, without long-term current use of insulin E11.9 Diabetes mellitus complication status: without complication Diabetes mellitus termite treater helper insulin use: without termite treater helper use Diabetes mellitus type: type 2 Paroxysmal atrial fibrillation I48.0 Diastolic dysfunction I51.89 Benign essential hypertension I10 Pure hypercholesterolemia E78.00 Elevated LFTs R79.89 Gastroesophageal reflux disease without esophagitis K21.9 Esophagitis presence: without esophagitis Right-sided low back pain with right-sided sciatica, unspecified chronicity M54.41 Chronicity: unspecified Back pain laterality: right Sciatica presence: with sciatica Sciatica laterality: sciatica of right side Lumbar radiculopathy M54.16 Diabetic polyneuropathy associated with type 2 diabetes mellitus E11.42 Diabetes mellitus type: type 2 Diabetes mellitus complication detail: diabetic polyneuropathy Vitamin D deficiency E55.9 Vitamin B12 deficiency E53.8 Urinary frequency R35.0 Episode of recurrent major depressive disorder, unspecified depression episode severity F33.9 Depression Type: major depressive disorder Major depression recurrence: recurrent Active/Remission status: currently active Major depression episode severity: unspecified Obesity (BMI 30-39.9) E66.9 Additional Codes PHQ-9 - 12667 - PHQ-9 Billing: Yes ([id number]) Assessment & Plan Assessment & Plan (1) Diabetes mellitus: Code(s): E11.9 - Type 2 diabetes mellitus without complications Category: Medical Qualifiers: Diabetes mellitus complication status: without complication Diabetes mellitus termite treater helper insulin use: without termite treater helper use Diabetes mellitus type: type 2 Qualified Code(s): E11.9 - Type 2 diabetes mellitus without complications Plan: His HgbA1c has increased again slightly to 7.8% on his labs done yesterday (was previously at 7.5% a few months ago) - goal is at least <7.0% but ideally <6.5% Reinforced diabetic diet Continue Januvia 100 mg QD and Metformin ER 500 mg QD Will try starting him additionally on Mounjaro 2.5 mg SQ Q week as his LFTs have been significantly elevated for a while now (likely due to hepatosteatosis) and he needs to urgently try to lose some weight to help address this and Mounjaro would work on both of the issues (blood sugar and weight) that he needs addressed Will recheck his FBS and HgbA1c in 4 months for follow up (2) Paroxysmal atrial fibrillation: Comment: sees Dr. Macias Code(s): I48.0 - Paroxysmal atrial fibrillation Category: Medical Plan: S/P ablation x 2 Patient currently remains in sinus bradycardia Continue Fleicanide 100 mg Q 12 hours and Metoprolol ER 50 mg QD Continue Eliquis 5 mg BID for thromboembolism prophylaxis Echocardiogram done in May 2021 showed normal LV systolic function with basal septal hypertrophy with mild mitral and tricuspid regurgitation and mild pulmonary hypertension Repeat echocardiogram on 04/27/2024 revealed normal LV ejection fraction of 65-70% with grade 3 diastolic dysfunction, mild biatrial enlargement, mild mitral regurgitation, moderately elevated right ventricular systolic pressure and mildly elevated right atrial pressures, upper limits of normal ascending aortic size and no gross pericardial effusion Follow up with cardiology as scheduled (3) Diastolic dysfunction: Code(s): I51.89 - Other ill-defined heart diseases Category: Medical Plan: Recent echocardiogram done in April 2024 revealed (+) grade 3 diastolic dysfunction Cardiology has previously mentioned to him that he appears to have advanced diastolic dysfunction without any other significant risk factors and his recent findings may suggest incipient heart failure He was sent for some additional work ups, including serum and urine electrophoresis to help assess for possible amyloidosis - labs have so far been negative but he will likely need a PYP scan (and later a cardiac MRI) to help r/o TTR type of amyloidosis He is scheduled to see cardiology later today for follow up and if appropriate, this will likely be ordered Neuropathy will also need to be ruled out Continue Furosemide 20 mg PRN for edema and fluid overload Follow up with cardiology as scheduled (4) Benign essential hypertension: Code(s): I10 - Essential (primary) hypertension Category: Medical Plan: Reinforced low sodium diet - goal is systolic BP of at least 120 to 130 mm or less Continue Losartan 25 mg QD, Amlodipine 10 mg QD and Metoprolol ER 50 mg QD Patient is reminded to continue monitoring his blood pressure regularly (5) Pure hypercholesterolemia: Code(s): E78.00 - Pure hypercholesterolemia, unspecified Category: Medical Plan: Results of his labs done yesterday reviewed and discussed with patient - he is cautioned that his cholesterol levels have improved significantly from previous Reinforced low cholesterol diet Continue Atorvastatin 10 mg Q PM Will have him recheck his labs and fasting lipids in 4 months for follow up (6) Elevated LFTs: Code(s): R79.89 - Other specified abnormal findings of blood chemistry Category: Medical Plan: Patient is advised that his LFTs have remained elevated and have increased further from previous, especially his serum AST His liver fibrosis panel done back in 2021 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 He admits that he has been drinking some alcohol and also has been taking a lot of Tylenol lately for his joint pains and will try to cut back on these We will continue to monitor his LFTs regularly (7) GERD (gastroesophageal reflux disease): Code(s): K21.9 - Gastro-esophageal reflux disease without esophagitis Category: Medical Qualifiers: Esophagitis presence: without esophagitis Qualified Code(s): K21.9 - Gastro-esophageal reflux disease without esophagitis Plan: Dietary restrictions reinforced Continue Omeprazole 20 mg QD (8) Low back pain: Code(s): M54.50 - Low back pain, unspecified Category: Medical Qualifiers: Chronicity: unspecified Back pain laterality: right Sciatica presence: with sciatica Sciatica laterality: sciatica of right side Qualified Code(s): M54.41 - Lumbago with sciatica, right side Plan: Reinforced activity and weight-lifting restrictions to avoid aggravating his low back pain He was seen by pain management last year and sent for MRI of the lumbar spine for further evaluation and to physical therapy Patient did not get his MRI done as his back was feeling better after a while and he opted not to go for the procedure He also was not seen by physical therapy - states that he chose not to schedule his sessions when his back pain felt better and more manageable with his current Rx Continue Gabapentin 800 mg TID (9) Lumbar radiculopathy: Code(s): M54.16 - Radiculopathy, lumbar region Category: Medical Plan: Patient was sent for MRI of the lumbar spine by pain management but he decided not to go for the procedure when his back pain and related symptoms started feeling better States that his symptoms are currently manageable and he does not wish to pursue any additional testing at this time (10) Diabetic neuropathy: Code(s): E11.40 - Type 2 diabetes mellitus with diabetic neuropathy, unspecified Category: Medical Qualifiers: Diabetes mellitus type: type 2 Diabetes mellitus complication detail: diabetic polyneuropathy Qualified Code(s): E11.42 - Type 2 diabetes mellitus with diabetic polyneuropathy Plan: Patient's EMG & NCV done back on 10/28/22 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 His EMG of the right L4-S1 innervated muscles are consistent with mild distal chronic neuropathic changes Continue Gabapentin 800 mg TID (11) Vitamin D deficiency: Code(s): E55.9 - Vitamin D deficiency, unspecified Category: Medical Plan: Continue Vitamin D3 2000 units QD (12) Vitamin B12 deficiency: Code(s): E53.8 - Deficiency of other specified B group vitamins Category: Medical Plan: Continue OTC Vitamin B12 tablets 1000 mcg once or twice a week (13) Urinary frequency: Code(s): R35.0 - Frequency of micturition Category: Medical Plan: Have advised patient that this may be due to his diabetes but may also be possibly due to his prostate issues getting worse Will have him try increasing his Tamsulosin to 0.8 mg Q HS Will also refer him to urology for further evaluation (14) Depression: Code(s): F32.A - Depression, unspecified Category: Medical Qualifiers: Depression Type: major depressive disorder Major depression recurrence: recurrent Active/Remission status: currently active Major depression episode severity: unspecified Qualified Code(s): F33.9 - Major depressive disorder, recurrent, unspecified Plan: Continue Sertraline 50 mg QD (15) Obesity (BMI 30-39.9): Code(s): E66.9 - Obesity, unspecified Category: Medical Plan: Reinforced diet/exercise as tolerated/lose weight Plan Follow up in 4 months Orders: Orders Complete Blood Count Auto Diff 4 Months D64.9 - Anemia, unspecified Comprehensive [place]. Panel Fast 4 Months E78.00 - Pure hypercholesterolemia, unspecified Microalbumin, Random (w Creat) 4 Months E11.9 - Type 2 diabetes mellitus without complications Vitamin D 25-OH Total 4 Months E55.9 - Vitamin D deficiency, unspecified Lipid Panel 4 Months E78.00 - Pure hypercholesterolemia, unspecified Hemoglobin A1c 4 Months E11.9 - Type 2 diabetes mellitus without complications TSH reflex Free T4 4 Months E78.00 - Pure hypercholesterolemia, unspecified UA CC w/rflx Micro + Cult 4 Months R30.0 - Dysuria Vitamin B12 and Folate 4 Months E53.8 - Deficiency of other specified B group vitamins Referrals Urology Referral N40.1 - Benign prostatic hyperplasia with lower urinary tract symptoms, R35.0 - Frequency of micturition Medications: New tirzepatide (Mounjaro) for 4 weeks 2.5 mg (0.5 mL) subcut QWEEK 4 weeks 2 mL 3RF E11.9 - Type 2 diabetes mellitus without complications Changed From tamsulosin 0.4 mg PO BEDTIME 90 days 90 caps 1RF N40.1 - Benign prostatic hyperplasia with lower urinary tract symptoms, R35.1 - Nocturia To tamsulosin 0.8 mg (2 x 0.4 mg) PO BEDTIME 90 days 180 caps 1RF N40.1 - Benign prostatic hyperplasia with lower urinary tract symptoms, R35.1 - Nocturia
--- OUTSIDE RECORDS SUMMARY | 2024-10-12 09:39 | XMS_ITS ---
Author Organization [facility] Address [address] [place] [address] Care Team Providers Care Crab Picker Name Role Phone Arturo CHERRY, [place] Primary Care Provider Unava Jayson Alcocer [phone] REASON FOR VISIT cancel Encounters Encounter Location Date Provider Diagnosis [facility] [address] [place] [address] 07/25/2024 Jayson Carlson Plan Of Treatment Next Appt Details Provider Name:Jayson Carlson , 11/16/2024 11:00:00 AM, [address], [address], [place], [address], Progress Notes * JUNE MUIRDOB: [birth year] (68 yo M)Acc No.[id number]:07/25/2024 Patient:?JUNE MUIR :1955???Age:68 Y???Sex:Male Address:[address] [place] [address] [place], [address] * true * Date:? Generated for Printi ng/Facatalinog/eTransmitting on:?10/12/2024 09:38 AM EDT
== END 2024-10-12 10:08 | disposition home or self-care (01) ==
LOC: HO.HMCH 09:16
PROVIDERS: PCP Internal Medicine; Visit Provider Internal Medicine
DX: E11.42 Type 2 diabetes mellitus with diabetic polyneuropathy (principal); I48.0 Paroxysmal atrial fibrillation; I51.89 Other ill-defined heart diseases; I10 Essential (primary) hypertension; E78.00 Pure hypercholesterolemia, unspecified; R79.89 Other specified abnormal findings of blood chemistry; K21.9 Gastro-esophageal reflux disease without esophagitis; M54.41 Lumbago with sciatica, right side; M54.16 Radiculopathy, lumbar region; E55.9 Vitamin D deficiency, unspecified; E53.8 Deficiency of other specified B group vitamins; R35.0 Frequency of micturition; F33.9 Major depressive disorder, recurrent, unspecified; E66.9 Obesity, unspecified

== ENCOUNTER → 2024-10-12 09:15 | Outpatient (BNVA) | payer MEDICARE, SELFPAY | PROVIDERS: PCP Internal Medicine; Visit Provider Internal Medicine | DX: E11.42 Type 2 diabetes mellitus with diabetic polyneuropathy (principal); I48.0 Paroxysmal atrial fibrillation; I11.9 Hypertensive heart disease without heart failure; E78.00 Pure hypercholesterolemia, unspecified; R79.89 Other specified abnormal findings of blood chemistry; K21.9 Gastro-esophageal reflux disease without esophagitis; M54.41 Lumbago with sciatica, right side; M54.16 Radiculopathy, lumbar region; E55.9 Vitamin D deficiency, unspecified; E53.8 Deficiency of other specified B group vitamins; R35.0 Frequency of micturition; F33.9 Major depressive disorder, recurrent, unspecified; E66.9 Obesity, unspecified; Z68.32 Body mass index [BMI] 32.0-32.9, adult; Z79.01 Long term (current) use of anticoagulants; Z79.84 Long term (current) use of oral hypoglycemic drugs; Z79.899 Other long term (current) drug therapy | CPT/HCPCS: 93005; 96127; 99212 ==

== ENCOUNTER 2024-10-12 13:05 | Outpatient (AMB) | payer MEDICARE, SELFPAY ==
--- NOTE | 2024-10-12 13:13 | A.OFFVIS_ITS ---
Vital Signs 10/12/24 13:14 Height 6 ft 0.5 in Weight 242 lb 8.136 oz BMI 32.4 BP 130/72 Blood Pressure Location Lt brachial Position Sitting Pulse 59 Intake Visit Reasons: 3m follow up Intake Note: 3 month follow-up with ekg feeling good Regulatory Leader Required: No Allergies latex [LATEX] Allergy (Intermediate, Verified 10/12/24 10:01) RASH lisinopril Allergy (Intermediate, Verified 10/12/24 10:01) Angioedema Medication List - Last Reconciled 10/12/24 by Silvestre Macias MD acetaminophen 500 mg PO Q6H amlodipine 10 mg PO DAILY apixaban (Eliquis) 5 mg PO BID 90 days atorvastatin 10 mg PO QPM 90 days cholecalciferol (vitamin D3) 50 mcg PO DAILY 90 days cyanocobalamin (vitamin B-12) 1,000 mcg PO .weekly 90 days epinephrine (EpiPen) 0.3 mg (0.3 mL) IM Q4H PRN flecainide 100 mg PO Q12H furosemide 20 mg PO DAILY gabapentin 800 mg PO TID 30 days losartan 25 mg PO DAILY metformin ER 500 mg PO DAILY 90 days metoprolol succinate ER 50 mg PO DAILY omeprazole 20 mg PO DAILY 90 days sertraline 50 mg PO DAILY sitagliptin phosphate (Januvia) 100 mg PO DAILY 90 days tamsulosin 0.8 mg (2 x 0.4 mg) PO BEDTIME 90 days tirzepatide (Mounjaro) 2.5 mg (0.5 mL) subcut QWEEK 4 weeks HPI Comments Details: Ori comes for follow-up. Since I last saw him I started him on Lasix 20 mg daily for elevated BNP and symptoms suggestive of incipient heart failure. Since then he said he has been doing well. His leg edema has improved. His shortness of breath has improved. Denies any orthopnea, PND. He has not had any episodes of atrial fibrillation. He underwent blood work for detection of atrial amyloidosis which was within normal limits. Denies any bleeding issues or neurologic events. Denies any lightheadedness, syncope. Denies any exertional chest pain. [facility] Medical History Vitamin B12 deficiency Vitamin D deficiency Diabetes mellitus Diabetic neuropathy Elevated LFTs Pure hypercholesterolemia Obesity (BMI 30-39.9) Benign essential hypertension Fatty liver Arthritis GERD (gastroesophageal reflux disease) Current use of anticoagulant therapy Depression IBS (irritable bowel syndrome) HTN (hypertension) Paroxysmal atrial fibrillation Surgical History Hx of eye surgery H/O colonoscopy History of esophagogastroduodenoscopy (EGD) Hx of tonsillectomy History of cardiac radiofrequency ablation Hx of sinus surgery Family History Father Diabetes Mother No problems noted. 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 Current occupational exposures/hazards: No Cognitive needs: No Hearing needs: No Vision needs: No Review of Systems Const Denies chills, Denies fatigue, Denies fever(s), Denies frequent falls, Denies weakness, Denies weight gain and Denies weight loss ENT Denies dizziness Card Denies chest pain, Denies leg edema, Denies lightheadedness, Denies palpitations , Denies dyspnea, Denies dyspnea on exertion, Denies orthopnea and Denies other (loss of consciousness) Resp Denies cough, Denies dyspnea and Denies dyspnea on exertion GI Denies hematochezia and Denies change in stool character Musc Denies abnormal gait, Denies muscle weakness, Denies numbness, Denies radiating pain into limb and Denies tingling Neuro Denies abnormal gait, Denies dizziness, Denies frequent falls, Denies numbness, Denies tingling and Denies weakness Endo Denies fatigue and Denies palpitations Physical Exam Vital Signs: Last Vital Signs Pulse 59 10/12/24 13:14 BP 130/72 10/12/24 13:14 BMI result Body Mass Index 32.4 Const General: cooperative, comfortable, no acute distress, alert and awake Nutritional Appearance: overweight Orientation/consciousness: patient oriented x3 Limitations: no limitations Neck Neck: Yes trachea midline, Yes supple and Yes no JVD Resp Effort & Inspection: normal respiratory effort Auscultation: clear to auscultation bilaterally Cardio Jugular venous distension: no JVD Palpation: normal PMI Rate: regular rate Rhythm: regular rhythm Heart sounds: S1 normal heart sound present and S2 normal heart sound present GI Auscultation: normal bowel sounds Skin General skin exam: no rashes or lesions noted Neuro General: patient oriented x3 and no focal motor deficits Extrem General: Yes no clubbing, cyanosis or edema Psych Appearance: grossly normal Office Procedures EKG Details: EKG shows sinus bradycardia 59 beats per minute otherwise normal EKG 01671-[id number], Complete Assessment & Plan Assessment & Plan (1) Diastolic dysfunction: Code(s): I51.89 - Other ill-defined heart diseases Category: Medical Plan: incipient heart failure clinically euvolemic well compensated low-dose diuretic therapy. Advanced diastolic dysfunction. No evidence by blood work suggestive of a L amyloidosis. Needs workup for a TTR type of amyloidosis. Will order PYP scan. Continue current diuretic regimen. Continue aggressive blood pressure control. Daily weight monitoring avoidance salt loading was discussed. Continue rhythm control approach. (2) Paroxysmal atrial fibrillation: Comment: sees Dr. Macias Code(s): I48.0 - Paroxysmal atrial fibrillation Category: Medical Plan: Paroxysmal atrial fibrillation status post ablation. Has done very well with rhythm control approach with flecainide. Continue flecainide therapy. We will need concomitant rate lowering therapy with metoprolol. Continue full oral anticoagulation, currently on Eliquis 5 mg b.i.d.. Semi annual renal function test is recommended. Avoidance of stimulants was discussed. Will follow up in the clinic in 6 months time, sooner p.r.n.. Thank you for allowing me to partake in his care Orders: Orders NM PYP Card Amyld SPECT w CT 1 Week I51.89 - Other ill-defined heart diseases Coding Level of Care Code Est Pt Level 4 (18859) Complex EM visit Add On G2211 Diagnoses Diastolic dysfunction I51.89 Paroxysmal atrial fibrillation I48.0 CPT Codes EKG - CPT: 82810-Vtkbliduvtnvtsder, Complete ([id number])
[2024-10-12 13:14] VITALS: BP 130/72; PULSE 59; BMI 32.4
== END 2024-10-12 13:39 | disposition home or self-care (01) ==
LOC: HO.HCS 13:06
PROVIDERS: PCP Internal Medicine; Visit Provider Internal Medicine Cardiovascular Disease
DX: I51.89 Other ill-defined heart diseases (principal); I48.0 Paroxysmal atrial fibrillation
CPT/HCPCS: 93010; 99214; G2211

== ENCOUNTER 2025-01-03 07:55 | Outpatient (AMB) | payer MEDICARE, SELFPAY ==
--- OUTSIDE RECORDS SUMMARY | 2024-07-25 07:10 | XMS_ITS ---
Author Organization [facility] Address [address] [place] [address] Care Team Providers Care Rubber Moulding Machine Operator Name Role Phone Cuong Morris MD Primary Care Provider Jayson Hummel [phone] REASON FOR VISIT Patient presents today for a fatty liver Encounters Encounter Location Date Provider Diagnosis [facility] [address] [place] [address] 07/25/2024 Jayson Carlson Plan Of Treatment Next Appt Details Provider Name:Jayson Carlson , 11/20/2025 09:30:00 AM, [address], [address], [place], [address], Progress Notes * JUNE MUIRDOB: [birth year] (69 yo M)Acc No.[id number]:07/25/2024 Progress Notes Patient: Lisa WING JUNE Banks Provider: Luciana Carlson MD :1955 A ge:68 Y S ex:Male Date:07/25/2024 Address:[address] [place], [place] [id number] Pcp:Cuong Morris MD Subjective: * Chief Complaints: [...] 0 07/25/2024 Generated for Lupe colón/Vania/Lizz on: 0 01/03/2025 07:58 AM EDT
--- NOTE | 2025-01-03 07:56 | A.OFFVIS_ITS ---
Intake Visit Reasons: BPH urinary frequency Intake Note: New Patient is present for Urinary Frequency / BPH Urology Rx:Tamsulosin PVR:0 mls Blood Thinners:Apixaban Imaging completed: none Pediatric Clinical Nurse Specialist Required: No Accompanied by: Self / Same As Patient Allergies latex (LATEX) Allergy (Intermediate, Verified 01/03/25 14:01) RASH lisinopril Allergy (Intermediate, Verified 01/03/25 14:01) Angioedema Medication List - Last Reconciled 01/03/25 by GORDON Luque-JHONNY acetaminophen 500 mg PO Q6H amlodipine 10 mg PO DAILY apixaban (Eliquis) 5 mg PO BID 90 days atorvastatin 10 mg PO QPM 90 days cholecalciferol (vitamin D3) 50 mcg PO DAILY 90 days cyanocobalamin (vitamin B-12) 1,000 mcg PO .weekly 90 days epinephrine (EpiPen) 0.3 mg (0.3 mL) IM Q4H PRN flecainide 100 mg PO Q12H furosemide 20 mg PO DAILY gabapentin 800 mg PO TID 30 days losartan 25 mg PO DAILY metformin ER 500 mg PO DAILY 90 days metoprolol succinate ER 50 mg PO DAILY omeprazole 20 mg PO DAILY 90 days sertraline 50 mg PO DAILY sitagliptin phosphate (Januvia) 100 mg PO DAILY 90 days tamsulosin 0.8 mg (2 x 0.4 mg) PO BEDTIME 90 days tirzepatide (Mounjaro) 2.5 mg (0.5 mL) subcut QWEEK 4 weeks vibegron (Gemtesa) 75 mg PO DAILY 30 days HPI Comments Details: Ori is a 69-year-old male patient of Dr. Morris. He has a past medical history of vitamin B12 deficiency, vitamin-D deficiency, diabetes, diabetic neuropathy, hypercholesteremia, obesity, hypertension, arthritis, GERD, depression, IBS, hypertension, and paroxysmal AFib. He presents to the office today as a new patient for ongoing lower urinary tract symptoms he has been experiencing. In discussion with the patient today he reports noting over the last year he has been having issues with urinary urgency, and urinary frequency. He reports having followed up with his PCP and was started on Flomax over a year ago however has not found this helpful. He continues to experience urinary urgency and frequency. In review of patient's chart it appears PSA 1/20 0.8. He denies incontinence, nocturia, hematuria, dysuria, foul smelling urine, flank pain, fever, and or chills. We did discussed potential causes of urinary urgency and frequency. We discussed bladder triggers and irritants. We discussed obtaining retroperitoneal ultrasound for further assessment evaluation as well as PSA. In office urinalysis results reviewed with the patient today. PVR 0 mL. We did discuss importance of management and diabetes for improvement in lower urinary tract symptoms for improvement lower urinary tract symptoms as well as overall health and well-being. A1cs are as follows: 09/06 6.6, 03/09 6.6, 06/10 7.5, 10/08 7.8 Urinary Symptoms Review - Frequent urination, sometimes every 5-10 minutes when consuming large amounts of liquid - Urgency with intense feeling - Symptoms have been present for years - Nocturia noted, with frequent urination upon waking - Previous use of Tamsulosin without improvement Discussion Notes The patient and I discussed the symptoms of urinary frequency and urgency, which have been persistent despite the use of Tamsulosin. We discussed lifestyle modifications, including bladder triggers and irritants to see if these changes alleviate symptoms. I recommended further diagnostic testing, including blood work and an ultrasound, to better understand the underlying causes of the symptoms. We also discussed the possibility of trying an overactive bladder medication and potentially changing the current medication regimen. Plan The management plan involves conducting blood work and an ultrasound to evaluate the prostate and bladder conditions. We will discontinue Tamsulosin and start an overactive bladder medication to address the urinary symptoms. Lifestyle changes, such as reducing caffeine, alcohol, and carbonated drinks, are recommended to assess their effect on symptoms. If significant prostate enlargement is detected, finasteride or surgical options may be considered. The patient should monitor symptoms and report any changes, aiming to reduce medication reliance where feasible. [facility] Medical History Urinary frequency Vitamin B12 deficiency Vitamin D deficiency Diabetes mellitus Diabetic neuropathy Elevated LFTs Pure hypercholesterolemia Obesity (BMI 30-39.9) Benign essential hypertension Fatty liver Arthritis GERD (gastroesophageal reflux disease) Current use of anticoagulant therapy Depression IBS (irritable bowel syndrome) HTN (hypertension) Paroxysmal atrial fibrillation Surgical History Hx of eye surgery H/O colonoscopy History of esophagogastroduodenoscopy (EGD) Hx of tonsillectomy History of cardiac radiofrequency ablation Hx of sinus surgery Family History Father Diabetes Mother No problems noted. 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 Current occupational exposures/hazards: No Cognitive needs: No Hearing needs: No Vision needs: No Review of Systems Const All systems reviewed & are unremarkable except as noted in HPI and below Physical Exam Const General: cooperative, healthy appearing, comfortable, no acute distress, well developed, alert and awake Orientation/consciousness: patient oriented x3 Limitations: no limitations HEENT Head: Yes normal to inspection, Yes normocephalic and Yes atraumatic Ears: hearing grossly normal bilaterally Eyes General: appearance normal, both eyes and all related structures Neck Neck: Yes normal visual inspection and Yes trachea midline Chest Chest palpation & inspection: normal inspection of the chest Resp Effort & Inspection: normal respiratory effort and able to speak in complete sentences Cardio Rate: regular rate GI Inspection: Yes normal to inspection General: Yes no CVA tenderness Back/Spine/Pelvis Back: no CVA tenderness Skin General skin exam: no rashes or lesions noted Neuro General: patient oriented x3 Extrem General: Yes normal to inspection Psych Appearance: grossly normal and well kempt Mental Status: mental status grossly normal Speech and movement: Normal speech and movement present and Clear speech present Affect: normal affect Attitude: cooperative Thought process: Normal thought process present Thought content: Normal thought content present Insight: Fair insight present (Psych) Judgement: Fair judgement present (Psych) Office Procedures Post Void Residual Post Residual Void Post Void Residual (PVR): 0 [id number] Void Residual by ultrasound Results AMB Urinalysis, Automated UA Leukoctes 70 Emerson/uL Last Edit by RILEY Erickson on 01/03/25 08:11 UA Nitrite Negative Last Edit by RILEY Erickson on 01/03/25 08:11 UA Urobilinogen 0.2 mg/dL Last Edit by RILEY Erickson on 01/03/25 08:1 1 UA Protein 15 mg/dL Last Edit by RILEY Erickson on 01/03/25 08:11 UA pH 6.0 Last Edit by RILEY Erickson on 01/03/25 08:11 UA Blood 0 [place]/uL Last Edit by RILEY Erickson on 01/03/25 08:11 UA Specific [place] 1.020 Last Edit by RILEY Erickson on 01/03/25 08: 11 UA Ketone Negative Last Edit by RILEY Erickson on 01/03/25 08:11 UA Bilirubin 1 mg/dL Last Edit by RILEY Erickson on 01/03/25 08:11 UA Glucose 0 mg/dL Last Edit by RILEY Erickson on 01/03/25 08:11 Results Reviewed Results Reviewed: Laboratory Last Values Urine pH (Auto) 6.0 01/03/25 08:09 Specific [place] (Auto) 1.020 01/03/25 08:09 Urine Protein (Auto) 15 mg/dL 01/03/25 08:09 Glucose (UA)(Auto) 0 mg/dL 01/03/25 08:09 Urine Ketones (Auto) Negative 01/03/25 08:09 Urine Blood (Auto) 0 [place]/uL 01/03/25 08:09 Urine Nitrite (Auto) Negative 01/03/25 08:09 Urine Bilirubin (Auto) 1 mg/dL 01/03/25 08:09 Urine Urobilinogen (Auto) 0.2 mg/dL 01/03/25 08:09 Leukocyte Esterase (Auto) 70 Emerson/uL 01/03/25 08:09 Assessment & Plan Assessment & Plan (1) Urinary frequency: Code(s): R35.0 - Frequency of micturition Category: Medical (2) Urinary urgency: Code(s): R39.15 - Urgency of urination Category: Medical (3) Lower urinary tract symptoms: Code(s): R39.9 - Unspecified symptoms and signs involving the genitourinary system Category: Medical Plan In office urinalysis results reviewed with the patient today; as noted above PVR 0 mL. We did discussed potential causes of lower urinary tract symptoms patient is experiencing as well as further treatment options and risks and benefits of these treatment options. Will obtain retroperitoneal ultrasound for further assessment evaluation. Will obtain PSA for further assessment evaluation. We discussed bladder triggers and irritants. We discussed the importance of management and diabetes for improvement in lower urinary tract symptoms as well as overall health and well-being. Stop Flomax. Start Gemtesa as discussed and prescribed. Follow-up in 1-3 months with imaging, labs, and PVR; or sooner with any issues, concerns, and or questions. Orders: Orders AMB Urinalysis Automated Today Z13.9 - Encounter for screening, unspecified US retroperitoneal comp Today R35.0 - Frequency of micturition, R39.15 - Urgency of urination, R39.9 - Unspecified symptoms and signs involving the genitourinary system Prostate Specific Antigen Today R35.0 - Frequency of micturition, R39.15 - Urgency of urination, R39.9 - Unspecified symptoms and signs involving the genitourinary system Medications: New vibegron (Gemtesa) 75 mg PO DAILY 30 tabs 3RF 30 days N32.81 - Overactive bladder Patient Instructions: The patient had an opportunity to ask questions regarding the treatment plan. All questions were answered. Physical exam, labs, and imaging were discussed and reviewed in detail. As well as risks, benefits, and discussion of treatment choices. No major barriers to understanding were identified. The patient expressed understanding and agreement with the above treatment plan. The patient was made aware they should contact our office by phone for worsening of their current condition, the appearance of new symptoms, or with any questions or concerns. Compliance is encouraged with any medications and follow up testing that is ordered. It is a privilege to be allowed the opportunity to participate in? your urological care.? Again, if you have any questions or concerns If you have any questions or concerns please do not hesitate to contact me. The office is [phone]. This note is constructed using voice recognition software. While every effort has been made to ensure accuracy asset protection agent errors may have been included. Yours sincerely, LANA Luque Coding Level of Care Code New Pt Level 4 (16845) Diagnoses Urinary frequency R35.0 Urinary urgency R39.15 Lower urinary tract symptoms R39.9 CPT Codes Post Residual Void - PVR CPT Code: 53797-Xriy Void Residual by ultrasound ([id number])
== END 2025-01-03 08:31 | disposition home or self-care (01) ==
LOC: HO.HUSH 07:56
PROVIDERS: PCP Internal Medicine; Visit Provider Nurse Practitioner Family
DX: R35.0 Frequency of micturition (principal); R39.15 Urgency of urination; R39.9 Unspecified symptoms and signs involving the genitourinary system; Z13.9 Encounter for screening, unspecified
CPT/HCPCS: 99204

== ENCOUNTER → 2025-01-03 07:55 | Outpatient (BNVA) | payer MEDICARE, SELFPAY | PROVIDERS: PCP Internal Medicine; Visit Provider Nurse Practitioner Family | DX: R35.0 Frequency of micturition (principal); R39.15 Urgency of urination; R39.9 Unspecified symptoms and signs involving the genitourinary system | CPT/HCPCS: 51798; 81003; 99202 ==

== ENCOUNTER → 2025-02-07 10:01 | Outpatient (REF) | payer MEDICARE, SELFPAY ==
--- OUTSIDE RECORDS SUMMARY | 2024-03-28 05:10 | XMS_ITS ---
Author Organization [facility] Address [address] [place] [address] Care Team Providers Care Gericare Aide Teacher Name Role Phone Cuong Morris MD Primary Care Provider Jayson Hummel [phone] REASON FOR VISIT Patient presents today for a fatty liver Encounters Encounter Location Date Provider Diagnosis [facility] [address] [place] [address] 03/28/2024 Jayson Carlson Plan Of Treatment Next Appt Details Provider Name:Jayson Carlson , 11/20/2025 09:30:00 AM, [address], [address], [place], [address], Progress Notes * JUNE MUIRDOB: [birth year] (69 yo M)Acc No.[id number]:03/28/2024 Progress Notes Patient: Lisa WING JUNE Banks Provider: Luciana Carlson MD :1955 A ge:68 Y S ex:Male Date:03/28/2024 Address:[address] [place], [place] [id number] Pcp:Cuong Morris MD Subjective: * Chief Complaints: [...] Pending * Provider: Luciana Carlson MD Date: 1 05/28/2023 Generated for Lupe colón/Vaina/Lizz on: 0 02/07/2025 12:15 PM EDT
--- OUTSIDE RECORDS SUMMARY | 2024-07-25 07:10 | XMS_ITS ---
Author Organization [facility] Address [address] [place] [address] Care Team Providers Care Disaster Recovery Consultant Name Role Phone Cuong Morris MD Primary Care Provider Jayson Hummel [phone] REASON FOR VISIT Patient presents today for a fatty liver Encounters Encounter Location Date Provider Diagnosis [facility] [address] [place] [address] 07/25/2024 Jayson Carlson Plan Of Treatment Next Appt Details Provider Name:Jayson Carlson , 11/20/2025 09:30:00 AM, [address], [address], [place], [address], Progress Notes * JUNE MUIRDOB: [birth year] (69 yo M)Acc No.[id number]:07/25/2024 Progress Notes Patient: Lisa WING JUNE Banks Provider: Luciana Carlson MD :1955 A ge:68 Y S ex:Male Date:07/25/2024 Address:[address] [place], [place] [id number] Pcp:Cuong Morris MD Subjective: * Chief Complaints: [...] 07/25/2024 Generated for Lupe colón/Vania/Lizz on: 0 02/07/2025 12:15 PM EDT
--- OUTSIDE RECORDS SUMMARY | 2025-01-11 06:30 | XMS_ITS ---
Author Organization [facility] Address [address] [place] [address] Care Team Providers Care Director Speech Language Name Role Phone Arturo CHERRY, [place] Primary Care Provider María Martinez Unavailable [phone] Allergies Allergen (clinical drug ingredient) Drug/Non Drug [...] Active Encounters Encounter Location Date Provider Diagnosis [facility] [address] [place] [address] 01/11/2025 María Capellan Plan Of Treatment Next Appt Details Provider Name:María maddox, 02/28/2025 09:30:00 AM, [address] [place], [address], Progress Notes * Ori TIDWELLDOB: [birth year] (69 yo M)Acc No.[id number]:01/11/2025 Progress Notes Patient: Ori DISLA Provider: Rick Capellan DPM :1955 A ge:69 Y S ex:Male Date:01/11/2025 Address:[address] [place], [place] [phone] Pcp:Cuong Morris MD Subjective: * Chief Complaints: [...] enies. C ardiovascular: Pacemaker d enies. 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 W PW d enies. C [...] 0 01/11/2025 Generated for Lupe colón/Vania/Lizz on: 0 02/07/2025 12:15 PM EDT
--- NOTE | ~2025-02-07 | NM_ITS ---
EXAMINATION: TC-PYP CARDIAC STUDY CLINICAL INFORMATION: Evaluation for cardiac amyloidosis. 69 years old Male with recurrent atrial fibrillation and heart failure syndrome COMPARISON None available. TECHNIQUE: 25 mCi of Tc-99m pyrophosphate was injected intravenously. Planar images of the chest were obtained in the anterior and left lateral views at 3 hours. SPECT-CT images of the chest were also obtained. FINDINGS: 1. Image Quality: Adequate 2. Semi-quantitative visual scoring of the cardiac uptake is performed as follows: 0 = absent cardiac uptake and intense bone uptake 3. H-CL Ratio if Applicable: 1.06 4. Ancillary Finds: Mild calcification noted in the ascending and arch of the aorta NM/NM PYP Card Amyld SPECT w CT IMPRESSION: 1. No clear evidence of amyloidosis especially of ATTR type on this imaging 2. Please note that the Tc-99m PYP is more sensitive in detecting transthyretin-related cardiac amyloidosis than that of light-chain cardiac amyloidosis. Electronically signed by: Silvestre Macias MD 02/08/2025 05:17 PM EDT
--- OUTSIDE RECORDS SUMMARY | 2025-02-07 12:15 | XMS_ITS | Patient Health Record ---
[facility] Address [address] [place] [address] Care Team Providers Care Cotton Presser Name Role Phone Arturo CHERRY, [place] Primary Care Provider María Martinez Unavailable [phone] Allergies Allergen (clinical drug ingredient) Drug/Non Drug Allergy documented on EMR Reaction Allergy Type Onset Date Status Latex Latex (uncoded) Unknown Allergy Acti ve Reason For Referral No Information Medications Medication SIG (Take, Route, Frequency, Duration) Notes Start Date End Date Status Losartan Potassium 25 MG 1 tablet Orally Once a day Active Metoprolol Succinate 50 MG 1 capsule Ora lly Once a day Active Tamsulosin HCl Activ e Omeprazole 20 MG 1 capsule 1/2 to 1 h our before morning meal Orally Once a day Active Atorvastatin Calcium 10 MG 1 tablet Oral ly Once a day Active Vitamin B12 1000 MCG 1 tablet Orally Onc e a day Active Apixaban 5 MG as directed Orally Active Flecainide Acetate 100 MG 0.5 tablet Ora lly every 12 hrs Active Furosemide 20 MG 1 tablet Orally Once a day Active metFORMIN HCl 500 MG 1 tablet with a phil l Orally Once a day Active Gabapentin 800 MG 1 tablet Orally Once a day Active Januvia 100 MG 1 tablet Orally Once a day Active amLODIPine Besylate 10 MG 1 tablet Orall y Once a day Active Social History Tobacco Use: Social History Observation Description Date Details (start date - stop date) Never Smoker NA - NA Tobacco use other than smoking: Question Answer Notes Are you an other tobacco user? No Tobacco Control (Standard) Question Answer Notes Tobacco use: Nonsmoker Additional Findings: Tobacco non-user Current no nsmoker AUDIT-C (Standard) Question Answer Notes Did you have a drink containing alcohol in the p ast year? No Points 0 Interpretation Negative Encounters Encounter Location Date Provider Diagnosis [facility] [address] [place] [address] 10/31/2024 Maraí Capellan [facility] [address] [place] [address] 01/09/2025 María Capellan Plan Of Treatment Next Appt Details Provider Name:María Tabbyандрей tan, 02/28/2025 09:30:00 AM, [address] [place], [address], Insurance Providers Payer Name Payer Address Payer Phone Subscriber Number Group Number Insured Name Patient Relationship to Insured Coverage Start Date Coverage End Date [facility] 65 Medicare Preferred [address] [place] [address] [phone] [id number] Ori Tidwell Self - patient is the insured Medical (General) History Medical History History ICD Code Arthritis covid-19 Depression Diabetic Heart disease High Blood Pressure nerve disorder Psoriasis/eczema raynauds disease Reflux ( GERD) Measles Mumps Chicken pox Surgical History Surgery Date(Month/Year) eye surgery nose surgery cryoablation
--- OUTSIDE RECORDS SUMMARY | 2025-02-07 12:15 | XMS_ITS | Patient Health Record ---
Author Organization [facility] Address [address] [place] [address] Care Team Providers Care Systems Security Consultant Name Role Phone Artuor CHERRY, [place] Primary Care Provider Jayson Hummel Unavailable [phone] Allergies Allergen (clinical drug ingredient) Drug/Non Drug Allergy documented on EMR Reaction Allergy Type Onset Date Status Latex Latex Unknown Allergy Active Reason For Referral No Information Medications Medication SIG (Take, Route, Fr equency, Duration) Notes Start Date End Date Status Januvia 100 MG TAKE 1 TABLET BY SHAHRIAR DAILY FOR 30 DAYS Oral for 30 Active Omeprazole 20 MG TAKE 1 CAPSULE BY MO [facility] EVERY DAY IN THE MORNING for 90 Active Flecainide Acetate 100 MG as directed Orally twice a day Active amLODIPine Besylate 10 MG 1 tablet Orally Once a day for 30 day(s) Active Metoprolol Succinate ER 50 MG 1 tablet Orally Once a day for 30 day(s) Active Sertraline HCl 50 MG 1 tablet Orally Once a day Active Lisinopril 20 MG 1 tablet Orally Once a day Active Gabapentin 600 MG 1 tablet Orally Once a day for 30 day(s) Active Vitamin B Complex - as directed Orally Active Mounjaro 2.5 MG/0.5ML 2.5 MG (0.5 ML) SUBCUTANEOUSLY EVERY WEEK FOR 4 WEEKS FOR 4 WEEKS Subcutaneous for 28 Days Active Eliquis 5 MG as directed Orally Active Ibuprofen Active Immunizations Vaccine Route Administration Date Status Comme nts Influenza Unknown 03/17/2020 Administered Influenza Unknown 03/18/2022 Administered Influenza Unknown 03/25/2023 Refused Social History AUDIT-C (Standard) Question Answer Notes Did you have a drink contain ing alcohol in the past year? Yes How often did you have a dri nk containing alcohol in the past year? 2 to 4 times a month (2 points) How many drinks did you have on a typical day when you were drinking in the past year? 1 or 2 drinks (0 point) How often did you have six o r more drinks on one occasion in the past year? Never (0 point) Points 2 Interpretation Negative Section Notes: He stopped smoking >20 years ago, and uses only occasional alcohol He stopped smoking >29 years ago, and uses only occasional alcohol He stopped smoking >29 years ago, and uses only occasional alcohol He stopped smoking >29 years ago, and uses only occasional alcohol He stopped smoking >29 years ago, and uses only occasional alcohol He stopped smoking >29 years ago, and uses only occasional alcohol He stopped smoking >35years ago, and uses only occasional alcohol He stopped smoking >35years ago, and uses only occasional alcohol He stopped smoking >35years ago; EtOH abuse but uses only occasional alcohol as of the 11/2024 OV Problems Problem Type SNOMED Code ICD Code Onset Dates Problem Status W/U Status Risk Notes Problem 776429259 Colon cancer screening (Z12.11) Active confirmed Problem 387569682 History of adenomatous polyp of colon (Z86.010) Active confirmed Problem 575934364 Change in bowel habit (R19.4) Active confirmed Problem 240888737 Change in bowel habits (R19.4) Active confirmed Problem Elevated liver enzymes level (005223083) Elevated liver enzymes (R74.8) Active confirmed Problem Steatohepatitis (433710583) Fatty liver (K76.0) Active confirmed Problem Gastritis (7169237) Gastritis (K29.70) Active confirmed Problem Gastroesophageal reflux disease (566476639) GERD (gastroesophageal reflux disease) (K21.9) Active confirmed Problem 67294618 Fatigue, unspecified type (R53.83) Active confirmed Problem 28369759 Irritable bowel syndrome with both constipation and diarrhea (K58.2) Active confirmed Problem Diverticulosis of colon (432848296) Diverticulosis of colon (K57.30) Active confirmed Problem 794334922 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) Active confirmed Vital Signs Blood pressure diastolic 77 mm Hg 11/16/2024 Height 72.50 in 11/16/2024 Blood pressure systolic 111 mm Hg 11/16/2024 Weight 234 lbs 11/16/2024 BMI 31.3 kg/m2 11/16/2024 Encounters Encounter Location Date Provider Diagnosis [facility] [address] [place] [id number] 11/16/2024 Jayson Carlson Colon cancer screeni ng Z12.11 ; Fatty liver K76.0 ; Irritable bowel syndrome with both constipation and diarrhea K58.2 and History of adenomatous polyp of colon Z86.010 [facility] [address] [place] [id number] 03/27/2024 Jayson Carlson [facility] [address] [place] [id number] 07/25/2024 Jayson Carlson Assessments Encounter Date Diagnosis (ICD Code) Assessment Notes Treatment Notes Treatment Clinical Notes Section Notes 11/16/2024 Colon cancer screening (ICD-10 - Z12.11) Repeat colonoscopy in 2026 Overall, June appears well physically considering his history of intermittent heavy alcohol use. We had a detailed discussion today regarding his need to avoid alcohol completely, watch his diet, and maintain good control of his diabetes for his overall health and specifically in order to prevent progression of liver disease. I am going to schedule him for a follow-up abdominal ultrasound as his last one was done about 4 years ago. I shall schedule some follow-up laboratories as well including a liver profile to hopefully see some improvement compared to the laboratories in September if indeed he has cut back on his alcohol consumption. We did review that he will be due for a follow-up colonoscopy for screening in 2026 given his history of tubular adenomas and his last colonoscopy being in 2021. I will plan to see June in 1 year for a follow-up visit but did advise him to contact me sooner if he has any problems or questions I can be of assistance with. June was very comfortable with this plan. Thank you again for allowing me to participate in June's care. I shall continue to keep you advised of his progress. 11/16/2024 Fatty liver (ICD-10 - K76.0) Overall, June appears well physically considering his history of intermittent heavy alcohol use. We had a detailed discussion today regarding his need to avoid alcohol completely, watch his diet, and maintain good control of his diabetes for his overall health and specifically in order to prevent progression of liver disease. I am going to schedule him for a follow-up abdominal ultrasound as his last one was done about 4 years ago. I shall schedule some follow-up laboratories as well including a liver profile to hopefully see some improvement compared to the laboratories in September if indeed he has cut back on his alcohol consumption. We did review that he will be due for a follow-up colonoscopy for screening in 2026 given his history of tubular adenomas and his last colonoscopy being in 2021. I will plan to see June in 1 year for a follow-up visit but did advise him to contact me sooner if he has any problems or questions I can be of assistance with. June was very comfortable with this plan. Thank you again for allowing me to participate in June's care. I shall continue to keep you advised of his progress. 11/16/2024 Irritable bowel syndrome with both constipation and diarrhea (ICD-10 - K58.2) Overall, June appears well physically considering his history of intermittent heavy alcohol use. We had a detailed discussion today regarding his need to avoid alcohol completely, watch his diet, and maintain good control of his diabetes for his overall health and specifically in order to prevent progression of liver disease. I am going to schedule him for a follow-up abdominal ultrasound as his last one was done about 4 years ago. I shall schedule some follow-up laboratories as well including a liver profile to hopefully see some improvement compared to the laboratories in September if indeed he has cut back on his alcohol consumption. We did review that he will be due for a follow-up colonoscopy for screening in 2026 given his history of tubular adenomas and his last colonoscopy being in 2021. I will plan to see June in 1 year for a follow-up visit but did advise him to contact me sooner if he has any problems or questions I can be of assistance with. June was very comfortable with this plan. Thank you again for allowing me to participate in June's care. I shall continue to keep you advised of his progress. 11/16/2024 History of adenomatous polyp of colon (ICD-10 - Z86.010) Overall, June appears well physically considering his history of intermittent heavy alcohol use. We had a detailed discussion today regarding his need to avoid alcohol completely, watch his diet, and maintain good control of his diabetes for his overall health and specifically in order to prevent progression of liver disease. I am going to schedule him for a follow-up abdominal ultrasound as his last one was done about 4 years ago. I shall schedule some follow-up laboratories as well including a liver profile to hopefully see some improvement compared to the laboratories in September if indeed he has cut back on his alcohol consumption. We did review that he will be due for a follow-up colonoscopy for screening in 2026 given his history of tubular adenomas and his last colonoscopy being in 2021. I will plan to see June in 1 year for a follow-up visit but did advise him to contact me sooner if he has any problems or questions I can be of assistance with. June was very comfortable with this plan. Thank you again for allowing me to participate in June's care. I shall continue to keep you advised of his progress. Plan Of Treatment Pending Test Test Name Order Date LIVER PROFILE 09/24/2022 LIVER PROFILE 11/27/2020 LIVER PROFILE 11/16/2024 LIVER PROFILE 03/27/2022 LIVER PROFILE 09/16/2021 IRON + IBC (FE) 11/27/2020 IRON + IBC (FE) 03/27/2022 IRON + IBC (FE) 09/16/2021 FERRITIN 11/27/2020 FERRITIN 03/27/2022 CBC w DIFF 11/16/2024 ALPHA-FETOPROTEIN,TUMOR MARKER 2 ALPHA-FETOPROTEIN,TUMOR MARKER CELIAC PANEL #10 11/27/2020 FLUOR. ANTINUCLEAR AB SCREEN (DAY) 03/17 TSH REFLEX FREE T4 11/27/2020 US ABDOMEN COMP WITH ELASTOGRAPHY 2020 Prothrombin Time INR 11/16/2024 Ferritin 09/16/2021 Alpha 1 Anti-trypsin 03/27/2022 Liver Fibrosis Pnl 09/16/2021 Liver Fibrosis Pnl 11/16/2024 Mitochondrial Antibody 03/27/2022 Smooth Muscle Antibody 03/27/2022 US abdomen comp w elastography 5 Future Test Test Name Order Date COLONOSCOPY 07/01/2011 COLONOSCOPY 11/04/2016 UPPER GI ENDOSCOPY 03/30/2021 COLONOSCOPY 09/16/2021 Next Appt Details Provider Name:Jayson Benavidez Carlson , 11/20/2025 09:30:00 AM, [address], [address], [place], [address], Insurance Providers Payer Name Payer Address Payer Phone Subscriber Number Group Number Insured Name Patient Relationship to Insured Coverage Start Date Coverage End Date [facility] [address] [place] [address] [phone] [id number] JUNE MUIR Self - patient is the insured Medical (General) History Medical History History ICD Code HTN Denies IA,CVA,Lung disease,renal disease A-fib Sinus problems IBS Depression Colonoscopy in 2011 and 2016 with tubula r adenomas Fatty liver with elevated LF Ts-hepatitis B and C studies were negative in 2018-negative abdominal ultrasound in 2018; normal iron saturation and ferritin of 441 in 03/2021 EGD 04/2021 was negative for celiac disease, Carl's esophagus, and H. pylori. There was some evidence of mild gastritis and reflux for which he was started on omeprazole. Colonoscopy in October of 2021 revealed small tubular adenomas that were removed NIDDM LE Neuropathy Syncope with negative tilt table test Surgical History Surgery Date(Month/Year) Cataracts and lenses 2023 Vein surgery Tonsillectomy Sinus surgery Eye surgery as a child Hospitalization History Reason Date(Month/Year)
== END ==
LOC: HO.NUCMED 10:01
PROVIDERS: PCP Internal Medicine; Visit Provider Internal Medicine Cardiovascular Disease
DX: I51.89 Other ill-defined heart diseases (principal)
CPT/HCPCS: 78830; A9538

== ENCOUNTER → 2025-02-07 10:03 | Outpatient (BNV) | payer MEDICARE, SELFPAY | PROVIDERS: PCP Internal Medicine; Visit Provider Internal Medicine Cardiovascular Disease | DX: E85.4 Organ-limited amyloidosis (principal) | CPT/HCPCS: 78830 ==

== ENCOUNTER 2025-03-20 14:35 | Outpatient (REF) | payer MEDICARE, SELFPAY ==
--- OUTSIDE RECORDS SUMMARY | 2024-03-28 04:10 | XMS_ITS ---
Author Organization [facility] Address [address] [place] [address] Care Team Providers Care Meat Sales And Storage Manager Name Role Phone Cuong Morris MD Primary Care Provider Jayson Hummel [phone] REASON FOR VISIT Patient presents today for a fatty liver Encounters Encounter Location Date Provider Diagnosis [facility] [address] [place] [address] 03/28/2024 Jayson Carlson Plan Of Treatment Next Appt Details Provider Name:Jayson Carlson , 11/20/2025 09:30:00 AM, [address], [address], [place], [address], Progress Notes * JUNE MUIRDOB: [birth year] (69 yo M)Acc No.[id number]:03/28/2024 Progress Notes Patient: Lisa WING JUNE Banks Provider: Luciana Carlson MD :1955 A ge:68 Y S ex:Male Date:03/28/2024 Address:[address] [place], [place] [id number] Pcp:Cuong Morris MD Subjective: * Chief Complaints: * 1 . Patient presents today for a fatty liver. * Medical History: Objective: * Vitals: Assessment: Plan: * Treatment: * * The named appointment provid er may or may not be the originator of this progress note, and it is not deemed complete until electronically signed by the appointment provider. Sign off status: Pending * Provider: Luciana Carlson MD Date: 05/28/2023 Generated for Lupe colón/Vania/Lizz on: 05/20/2024 05:38 PM EST
--- OUTSIDE RECORDS SUMMARY | 2024-07-25 06:10 | XMS_ITS ---
Author Organization [facility] Address [address] [place] [address] Care Team Providers Care Correction Worker Name Role Phone Cuong Morris MD Primary Care Provider Jayson Hummel [phone] REASON FOR VISIT Patient presents today for a fatty liver Encounters Encounter Location Date Provider Diagnosis [facility] [address] [place] [address] 07/25/2024 Jayson Carlson Plan Of Treatment Next Appt Details Provider Name:Jayson Carlson , 11/20/2025 09:30:00 AM, [address], [address], [place], [address], Progress Notes * JUNE MUIRDOB: [birth year] (69 yo M)Acc No.[id number]:07/25/2024 Progress Notes Patient: Lisa WING JUNE Banks Provider: Luciana Carlson MD :1955 A ge:68 Y S ex:Male Date:07/25/2024 Address:[address] [place], [place] [id number] Pcp:Cuong Morris MD Subjective: * Chief Complaints: [...] Pending * Provider: Luciana Carlson MD Date: 0 07/25/2024 Generated for Lupe colón/Vania/Lizz on: 05/20/2024 05:37 PM EST
--- OUTSIDE RECORDS SUMMARY | 2025-01-11 05:30 | XMS_ITS ---
Author Organization [facility] Address [address] [place] [address] Care Team Providers Care Centerless Grinding Machine Adjuster Name Role Phone Arturo CHERRY, [place] Primary Care Provider María Martinez Unavailable [phone] Allergies Allergen (clinical drug ingredient) Drug/Non Drug Allergy documented on EMR Reaction Allergy Type Onset Date Status Latex Latex (uncoded) Unknown Allergy Acti ve Medications Medication SIG (Take, Route, Frequency, Duration) Notes Start Date End Date Status Losartan Potassium 25 MG 1 tablet Orally Once a day Active Tamsulosin HCl Activ e Omeprazole 20 MG 1 capsule 1/2 to 1 h our before morning meal Orally Once a day Active Flecainide Acetate 100 MG 0.5 tablet Ora lly every 12 hrs Active metFORMIN HCl 500 MG 1 tablet with a phil l Orally Once a day Active Apixaban 5 MG as directed Orally Active Furosemide 20 MG 1 tablet Orally Once a day Active Gabapentin 800 MG 1 tablet Orally Once a day Active Januvia 100 MG 1 tablet Orally Once a day Active amLODIPine Besylate 10 MG 1 tablet Orall y Once a day Active Metoprolol Succinate 50 MG 1 capsule Ora lly Once a day Active Atorvastatin Calcium 10 MG 1 tablet Oral ly Once a day Active Vitamin B12 1000 MCG 1 tablet Orally Onc e a day Active Encounters Encounter Location Date Provider Diagnosis [facility] [address] [place] [address] 01/11/2025 María Capellan Plan Of Treatment Next Appt Details Provider Name:Ligia chiang, 05/08/2025 08:30:00 AM, [address] [place], [address], Progress Notes * Ori TIDWELLDOB: [birth year] (69 yo M)Acc No.[id number]:01/11/2025 Progress Notes Patient: Ori DISLA Provider: Rick Capellan DPM :1955 A ge:69 Y S ex:Male Date:01/11/2025 Address:[address] [place], [place] [id number] Pcp:Cuong Morris MD Subjective: * Chief Complaints: * * ROS: G eneral/Constitutional: Nausea d enies. V omiting d enies. H fermín Thirst d enies. L oss appetite d enies. C hills d enies. F atigue d enies.?Fever d enies. N ight Sweats d enies. U nexplained weight loss d enies. U nexplained weight gain d enies. H EENTM: Dentures d enies. D izziness d enies. G lasses/contacts d enies. R etinopathy d enies. B lurred/double vision d enies. T MJ?denies. D ischarge/drainage d enies. I mplants d enies. S ore throat d enies. D ental implants d enies. H hakeem of hearing d enies. D ifficulty chewing/swallowing/speaking d enies. N ose bleeds d enies. S ore mouth d enies. ? R espiratory: On Oxygen d enies. P neumonia/pleurisy d enies.?Bronchitis d enies. E mphysema d enies. C oughing d enies. C ough blood?denies. S hortness of breath d enies. W heezing d enies. C ardiovascular: Pacemaker d enies. M QUEEN'S COUNSEL d enies. W PW d enies. C HF d enies. H eart attack d enies. S eptal defect d enies. R apid beat d enies. C hest pain d enies. A trial Fib. a dmits. M urmur/Palpitations d enies. G astrointestinal: Hemorrhoids d enies. S tomach/Abdominal pain d enies. D ark blood stool d enies. I rritable bowel d enies. C onstipation d enies. D iarrhea d enies. H ematology: Swelling d enies. C lots d enies. V aricose Veins d enies. B ruising d enies. B leeding problem d enies. G enitourinary: Blood urine d enies. F requent/Painfu/urination/bladder control a dmits. K idney stones d enies. I nfection (UTI) d enies. N ephropathy d enies. s ex trans dis (STD) d enies. P rostate d enies. M usculoskeletal: Hammertoes d enies. B unions d enies. B ack Pain d enies. M uscle Cramps/ Resting d enies. M uscle cramps / walking d enies.?Generalized aches and pains a dmits. W eakness d enies. I nteg.: Farley d enies. S cars d enies. C orns/calluses?denies. I ngrown nails d enies. P ainful nails d enies. O pen Sores d enies. R ashes d enies. N eurologic: Difficulty sleeping d enies. B rain disorder d enies. N umbness a dmits. B alance trouble a dmits. C onfusion d enies. F ainting/blackouts d enies. T ingling a dmits. T remors d enies. * Medical History: A rthritis, Covid-19, Depression, Diabetic, Heart disease, High Blood Pressure, Nerve disorder, Psoriasis/eczema, Raynauds disease, Reflux ( GERD), Measles, Mumps, Chicken pox. * Surgical History: e ye surgery , nose surgery , cryoablation . * Family History: M other: . F ather: , diagnosed with Diabetic - NIDDM. S iblings: diagnosed with Diabetic - NIDDM. * Social History: M iscellaneous: C affeine: yes, frequency: 3 cups per day. Marital status: . * Medications: T aking Flecainide Acetate 100 MG Tablet 0.5 tablet Orally every 12 hrs , Taking metFORMIN HCl 500 MG Tablet 1 tablet with a meal Orally Once a day , Taking Tamsulosin HCl , Taking Omeprazole 20 MG Capsule Delayed Release 1 capsule 1/2 to 1 hour before morning meal Orally Once a day , Taking Losartan Potassium 25 MG Tablet 1 tablet Orally Once a day , Taking Metoprolol Succinate 50 MG Capsule ER 24 Hour Sprinkle 1 capsule Orally Once a day , Taking Atorvastatin Calcium 10 MG Tablet 1 tablet Orally Once a day , Taking Vitamin B12 1000 MCG Tablet 1 tablet Orally Once a day , Taking Apixaban 5 MG Tablet as directed Orally , Taking Januvia 100 MG Tablet 1 tablet Orally Once a day , Taking amLODIPine Besylate 10 MG Tablet 1 tablet Orally Once a day , Taking Furosemide 20 MG Tablet 1 tablet Orally Once a day , Taking Gabapentin 800 MG Tablet 1 tablet Orally Once a day * Allergies: L atex. Objective: * Vitals: Assessment: Plan: * Treatment: * Images: * The named appointment provid er may or may not be the originator of this progress note, and it is not deemed complete until electronically signed by the appointment provider. Sign off status: Pending * Provider: Rick Capellan DPM Date: 0 01/11/2025 Generated for Lupe colón/Vania/Lizz on: 05/20/2024 05:37 PM EST
--- OUTSIDE RECORDS SUMMARY | 2025-02-28 04:30 | XMS_ITS ---
Author Organization [facility] Address [address] [place] [address] Care Team Providers Care Home Sales Consultant Name Role Phone Arturo CHERRY, Cuong Primary Care Provider María Martinez Unavailable [phone] Allergies Allergen (clinical drug ingredient) Drug/Non Drug [...] Negative Encounters Encounter Location Date Provider Diagnosis [facility] [place] [address] [place] [address] 02/28/2025 María Capellan Plan Of Treatment Next Appt Details Provider Name:Ligia chiang, 05/08/2025 08:30:00 AM, [address] [place], [address], Progress Notes * Ori TIDWELLDOB: (69 yo M)Acc No.[id number]:02/28/2025 Progress Notes Patient: Ori DISLA Provider: Rick Capellan DPM :1955 A ge:69 Y S ex:Male Date:02/28/2025 Address:[address] [place], [place] [id number] Pcp:Cuong Morirs MD Subjective: * Chief Complaints: * * [...] enies. C ardiovascular: Pacemaker d enies. 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 W PW d enies. [...] DPM Date: Generated for Lupe colón/Vania/Lizz on: 05/20/2024 05:37 PM EST
[2025-03-20 16:48] LABS: Prostate Specific Antigen 1.33 ng/mL (<0.05-4.0)
--- OUTSIDE RECORDS SUMMARY | 2025-03-20 17:37 | XMS_ITS | Patient Health Record ---
Author Organization [facility] Address [address] [place] [address] Care Team Providers Care Er Physician Name Role Phone Arturo CHERRY, Cuong Primary Care Provider María Martinez Unavailable [phone] Allergies Allergen (clinical drug ingredient) Drug/Non Drug Allergy documented on EMR Reaction Allergy Type Onset Date Status Latex Latex (uncoded) Unknown Allergy Acti ve Reason For Referral No Information Medications Medication SIG (Take, Route, Frequency, Duration) Notes Start Date End Date Status Omeprazole 20 MG 1 capsule 1/2 to 1 h our before morning meal Orally Once a day Active Tamsulosin HCl Activ e Metoprolol Succinate 50 MG 1 capsule Ora [...] 1 tablet Orally Once a day Active Flecainide Acetate 100 MG 0.5 tablet Ora lly every 12 hrs Active Furosemide 20 MG 1 tablet Orally Once a day Active Vitamin B12 1000 MCG 1 tablet Orally Onc e a day Active Atorvastatin Calcium 10 MG 1 tablet Oral ly Once a day Active Apixaban 5 MG as directed Orally Active Social History Tobacco Use: Social History [...] Negative Encounters Encounter Location Date Provider Diagnosis [facility] [place] [address] [place] [address] 10/31/2024 María Capellan [facility] [place] [address] [place] [address] 01/09/2025 María Capellan [facility] [place] [address] [place] [address] 02/27/2025 María Capellan Plan Of Treatment Next Appt Details Provider Name:Ligia Juan chiang, 05/08/2025 08:30:00 AM, [address] [place], [address], Insurance Providers Payer Name Payer Address Payer Phone Subscriber Number Group Number Insured Name Patient Relationship to Insured Coverage Start Date Coverage End Date [facility] 65 Medicare Preferred [address] [place] [address] [phone] [id number] Ori Tidwell Self - patient is the insured Medical (General) History Medical History History ICD Code Arthritis covid-19 Depression Diabetic Heart disease High Blood Pressure nerve disorder Psoriasis/eczema raynauds disease Reflux ( GERD) Measles Mumps Chicken pox Surgical History Surgery Date(Month/Year) eye surgery nose surgery cryoablation
--- OUTSIDE RECORDS SUMMARY | 2025-03-20 17:38 | XMS_ITS | Patient Health Record ---
Author Organization [facility] Address [address] [place] [address] Care Team Providers Care Trouble Shooting Mechanic Name Role Phone Arturo CHERRY, [place] Primary Care Provider Jayson Hummel [phone] Allergies Allergen (clinical drug ingredient) Drug/Non Drug Allergy documented on EMR Reaction Allergy Type Onset Date Status Latex Latex Unknown Allergy Active Reason For Referral No Information Medications Medication SIG (Take, Route, Fr equency, Duration) Notes Start Date End Date Status Januvia 100 MG TAKE 1 TABLET BY SHAHRIAR TH DAILY FOR 30 DAYS Oral; Duration: 30 Active Omeprazole 20 MG TAKE 1 CAPSULE BY MO ARH EVERY DAY IN THE MORNING; Duration: 90 Active Flecainide Acetate 100 MG as directed Orally twice a day Active amLODIPine Besylate 10 MG 1 tablet Orally Once a day; Duration: 30 day(s) Active Metoprolol Succinate ER 50 MG 1 tablet Orally Once a day; Duration: 30 day(s) Active Sertraline HCl 50 MG 1 tablet Orally Once a day Active Lisinopril 20 MG 1 tablet Orally Once a day Active Gabapentin 600 MG 1 tablet Orally Once a day; Duration: 30 day(s) Active Vitamin B Complex - as directed Orally Active Mounjaro 2.5 MG/0.5ML 2.5 MG (0.5 ML) SUBCUTANEOUSLY EVERY WEEK FOR 4 WEEKS FOR 4 WEEKS Subcutaneous; Duration: 28 Days Active Eliquis 5 MG as [...] Problem Status W/U Status Risk Notes Problem Colon cancer screening (587670862) Colon cancer screening (Z12.11) Active confirmed Problem History of adenomatous polyp of colon (870955190) History of adenomatous polyp of colon (Z86.010) Active confirmed Problem Change in bowel habit (43689872) Change in bowel habit (R19.4) Active confirmed Problem Change in bowel habit (91498953) Change in bowel habits (R19.4) Active confirmed Problem Elevated liver enzymes level (022591928) Elevated liver enzymes (R74.8) Active confirmed Problem Fatty liver (443971709) Fatty liver (K76.0) Active confirmed Problem Gastritis (3154102) Gastritis (K29.70) Active confirmed Problem Gastroesophageal reflux disease (026714902) GERD (gastroesophageal reflux disease) (K21.9) Active confirmed Problem Fatigue (18426006) Fatigue, unspecified type (R53.83) Active confirmed Problem Irritable bowel syndrome (36433439) Irritable bowel syndrome with both constipation and diarrhea (K58.2) Active confirmed Problem Diverticulosis of colon (183282343) Diverticulosis of colon (K57.30) Active confirmed Problem 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 [address] [place] [address] 11/16/2024 Jayson Carlson Colon cancer screeni ng Z12.11 ; Fatty liver K76.0 ; Irritable bowel syndrome with both constipation and diarrhea K58.2 and History of adenomatous polyp of colon Z86.010 [facility] [address] [place] [address] 03/27/2024 Jayson Carlson [facility] [address] [place] [address] 07/25/2024 Jayson Carlson Assessments Encounter Date Diagnosis [...] 03/27/2022 CBC w DIFF 11/16/2024 ALPHA-FETOPROTEIN,TUMOR MARKER ALPHA-FETOPROTEIN,TUMOR MARKER CELIAC PANEL #10 11/27/2020 FLUOR. [...] 09/16/2021 Next Appt Details Provider Name:Jayson Carlson 11/20/2025 09:30:00 AM, [address], [address], [place], [address], Insurance Providers Payer Name Payer Address Payer Phone Subscriber Number Group Number Insured Name Patient Relationship to Insured Coverage Start Date Coverage End Date [facility] [address] [address] [place] [address] [id number] JUNE MUIR Self - patient is the insured Medical (General) History Medical History History ICD Code HTN Denies [place],CVA,Lung disease,renal disease A-fib Sinus problems IBS Depression [...] test 20 23 Surgical History Surgery Date(Month/Year) Cataracts and lenses 2023 Vein surgery Tonsillectomy Sinus surgery Eye surgery as a child Hospitalization History Reason Date(Month/Year)
== END 2025-03-20 14:36 | disposition home or self-care (01) ==
LOC: HO.HMGCLDS 14:35
PROVIDERS: PCP Internal Medicine; Visit Provider Nurse Practitioner Family
DX: R35.0 Frequency of micturition (principal); R39.9 Unspecified symptoms and signs involving the genitourinary system; R39.15 Urgency of urination; Z12.5 Encounter for screening for malignant neoplasm of prostate
CPT/HCPCS: 36415; 84153

== ENCOUNTER 2025-04-04 10:58 | Outpatient (AMB) | payer MEDICARE, SELFPAY ==
--- OUTSIDE RECORDS SUMMARY | 2025-01-11 05:30 | XMS_ITS ---
Author Organization [facility] Address [address] [place] [address] Care Team Providers Care Software Performance Engineer Name Role Phone Arturo CHERRY, [place] Primary Care Provider María Martinez Unavailable [phone] Allergies Allergen (clinical drug ingredient) Drug/Non Drug [...] Active Encounters Encounter Location Date Provider Diagnosis [facility] [address] [place] [address] 01/11/2025 María Caepllan Plan Of Treatment Next Appt Details Provider Name:Ligia chiang, 05/08/2025 08:30:00 AM, [address] [place], [address], Progress Notes * Ori TIDWELLDOB: [birth year] (69 yo M)Acc No.[id number]:01/11/2025 Progress Notes Patient: Ori DISLA Provider: Rick Capellan DPM :1955 A ge:69 Y S ex:Male Date:01/11/2025 Address:[address] [place], [place] [id number] Pcp:Cuong Morris MD Subjective: * Chief Complaints: [...] enies. C ardiovascular: Pacemaker d enies. 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 W PW d enies. [...] 0 01/11/2025 Generated for Lupe colón/Vania/Lizz on: 06/04/2024 09:40 PM EST
--- OUTSIDE RECORDS SUMMARY | 2025-02-28 04:30 | XMS_ITS ---
Author Organization [facility] Address [address] [place] [address] Care Team Providers Care Technical Account Representative Name Role Phone Arturo CHERRY, Cuong Primary Care Provider María Martinez Unavailable [phone] Allergies Allergen (clinical drug ingredient) Drug/Non Drug [...] Negative Encounters Encounter Location Date Provider Diagnosis [facility] [place] [address] [place] [address] 02/28/2025 María Capellan Plan Of Treatment Next Appt Details Provider Name:Ligia chiang, 05/08/2025 08:30:00 AM, [address] [place], [address], Progress Notes * Ori TIDWELLDOB: (69 yo M)Acc No.[id number]:02/28/2025 Progress Notes Patient: Ori DISLA Provider: Rick Capellan DPM :1955 A ge:69 Y S ex:Male Date:02/28/2025 Address:[address] [place], [place] [id number] Pcp:Cuong Morris MD Subjective: * Chief Complaints: [...] enies. C ardiovascular: Pacemaker d enies. 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 W PW d enies. C [...] DPM Date: Generated for Lupe colón/Vania/Lizz on: 06/04/2024 09:41 PM EST
[2025-04-04 11:00] VITALS: BP 138/80; PULSE 59; BMI 30.4
--- NOTE | 2025-04-04 11:00 | A.OFFVIS_ITS ---
Vital Signs 04/04/25 11:00 Height 6 ft Weight 224 lb 6.889 oz BMI 30.4 BP 138/80 Blood Pressure Location Lt brachial Position Sitting Pulse 59 Pulse Source Monitor Intake Visit Reasons: 6m follow up w EKG Intake Note: 6 m Follow up w/ EKG Front Maker Lockstitch Required: No Accompanied by: Self / Same As Patient Allergies latex (LATEX) Allergy (Intermediate, Verified 04/04/25 11:04) RASH lisinopril Allergy (Intermediate, Verified 04/04/25 11:04) Angioedema Medication List - Last Reconciled 04/04/25 by Silvestre Macias MD acetaminophen 500 mg PO Q6H amlodipine 10 mg PO DAILY apixaban (Eliquis) 5 mg PO BID 90 days atorvastatin 10 mg PO QPM 90 days cholecalciferol (vitamin D3) 50 mcg PO DAILY 90 days cyanocobalamin (vitamin B-12) 1,000 mcg PO .weekly 90 days epinephrine (EpiPen) 0.3 mg (0.3 mL) IM Q4H PRN flecainide 100 mg PO Q12H furosemide 20 mg PO DAILY gabapentin 800 mg PO TID 30 days losartan 25 mg PO DAILY metformin ER 500 mg PO DAILY 90 days metoprolol succinate ER 50 mg PO DAILY omeprazole 20 mg PO DAILY 90 days sertraline 50 mg PO DAILY sitagliptin phosphate (Januvia) 100 mg PO DAILY 90 days tirzepatide (Mounjaro) 2.5 mg (0.5 mL) subcut QWEEK 4 weeks HPI Comments Details: Ori comes for follow-up. He has been doing well. Recent nuclear testing for amyloidosis was negative for uptake. He said he is not exercising much because of pain in his feet and his joints when he walks a long distance without proper orthotics. He has no other heart failure symptoms. Currently taking Lasix on a daily basis. No recurrent atrial fibrillation. [facility] Medical History Urinary frequency Vitamin B12 deficiency Vitamin D deficiency Diabetes mellitus Diabetic neuropathy Elevated LFTs Pure hypercholesterolemia Obesity (BMI 30-39.9) Benign essential hypertension Fatty liver Arthritis GERD (gastroesophageal reflux disease) Current use of anticoagulant therapy Depression IBS (irritable bowel syndrome) HTN (hypertension) Paroxysmal atrial fibrillation Surgical History Hx of eye surgery H/O colonoscopy History of esophagogastroduodenoscopy (EGD) Hx of tonsillectomy History of cardiac radiofrequency ablation Hx of sinus surgery Family History Father Diabetes Mother No problems noted. 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 Current occupational exposures/hazards: No Cognitive needs: No Hearing needs: No Vision needs: No Review of Systems Const Denies daytime sleepiness, Denies difficulty sleeping, Denies snoring, Denies stops breathing during sleep and Denies weakness Card Denies chest pain, Denies rapid heart rate, Denies irregular heart rhythm, Denies claudication, Denies leg edema, Denies lightheadedness, Denies palpitations, Denies dyspnea, Denies dyspnea on exertion, Denies orthopnea, Denies paroxysmal nocturnal dyspnea and Denies slow heart rate Resp Denies cough, Denies dyspnea, Denies dyspnea on exertion and Denies snoring GI Reports no additional complaints, Denies hematochezia, Denies change in stool character and Denies dyspepsia Musc Denies abnormal gait, Denies muscle weakness and Denies numbness Neuro Denies abnormal gait, Denies numbness and Denies weakness Endo Denies palpitations Physical Exam Vital Signs: Last Vital Signs Pulse 59 04/04/25 11:00 BP 138/80 04/04/25 11:00 BMI result Body Mass Index 30.4 Office Procedures EKG Details: EKGs shows sinus bradycardia at 59 beats per minute otherwise normal EKGs [id number], Complete Assessment & Plan Assessment & Plan (1) Heart failure with preserved ejection fraction: Code(s): I50.30 - Unspecified diastolic (congestive) heart failure Category: Medical Plan: Heart failure with preserved ejection fraction with diastolic dysfunction was symptoms of heart failure in the setting of AFib. Diastolic dysfunction most likely due to hypertensive heart disease possibly diuretic heart disease. There was no evidence of cardiac amyloidosis by recent nuclear testing. Continue current low-dose diuretic therapy. Continue rhythm control approach. Continue aggressive blood pressure control which is currently well optimized. Heart failure management was discussed in details. Can consider adding Jardiance/Farxiga therapy for heart failure management if he continues to have progressive symptoms. Encouraged to increase activity level as tolerated. (2) Paroxysmal atrial fibrillation: Comment: sees Dr. Macias Code(s): I48.0 - Paroxysmal atrial fibrillation Category: Medical Plan: Paroxysmal atrial fibrillation has remained suppressed on flecainide therapy in his done well with rhythm control approach will continue pursue rhythm control approach. Continue current flecainide therapy with concomitant metoprolol therapy. Continue full oral anticoagulation, currently on Eliquis 5 mg b.i.d.. Semi annual renal function test should be pursued. Will follow up in the clinic in 6 months time, sooner PRN. Thank you for allowing me to partake in his care Orders: Orders CA echo transthoracic complete 1 Month I50.30 - Unspecified diastolic (congestive) heart failure Coding Level of Care Code Est Pt Level 4 (22550) Complex EM visit Add On G2211 Diagnoses Heart failure with preserved ejection fraction I50.30 Paroxysmal atrial fibrillation I48.0 CPT Codes EKG - CPT: 74696-[id number], Complete ([id number])
--- OUTSIDE RECORDS SUMMARY | 2025-04-04 21:40 | XMS_ITS | Patient Health Record ---
Author [facility] Address [address] [place] [address] Care Team Providers Care Valve Maker Name Role Phone Arturo CHERRY, Cuong Primary Care Provider María Martinez Unavailable [phone] Allergies Allergen (clinical drug ingredient) Drug/Non Drug [...] Negative Encounters Encounter Location Date Provider Diagnosis [facility] [address] [place] [address] 10/31/2024 María Capellan [facility] [address] [place] [address] 01/09/2025 María Capellan [facility] [address] [place] [address] 02/27/2025 María Capellan Plan Of Treatment Next Appt Details Provider Name:Ligia Juan chiang, 05/08/2025 08:30:00 AM, [address] [place], [address], Insurance Providers Payer Name Payer Address Payer Phone Subscriber Number Group Number Insured Name Patient Relationship to Insured Coverage Start Date Coverage End Date [facility] 65 Medicare Preferred [address] [place] [address] [phone] [id number] Ori Tidwell Self - patient is the insured Medical (General) History Medical History History ICD Code Arthritis covid-19 Depression Diabetic Heart disease High Blood Pressure nerve disorder Psoriasis/eczema raynauds disease Reflux ( GERD) Measles Mumps Chicken pox Surgical History Surgery Date(Month/Year) eye surgery nose surgery cryoablation
--- OUTSIDE RECORDS SUMMARY | 2025-04-04 21:41 | XMS_ITS | Patient Health Record ---
Author Organization [facility] Address [address] [place] [address] Care Team Providers Care Garden Labourer Name Role Phone Arturo CHERRY, [place] Primary Care Provider Jayson Hummel Unavailable [phone] Allergies Allergen (clinical drug ingredient) Drug/Non Drug Allergy documented on EMR Reaction Allergy Type Onset Date Status Latex Latex Unknown Allergy Active Reason For Referral No Information Medications Medication SIG (Take, Route, Fr equency, Duration) Notes Start Date End Date Status Januvia 100 MG Tablet TAKE 1 TABLET BY M OUTH DAILY FOR 30 DAYS Oral; Duration: 30 Active Omeprazole 20 MG Capsule Delayed Release TAKE 1 CAPSULE BY MOUTH EVERY DAY IN THE MORNING; Duration: 90 Active Flecainide Acetate 100 MG Tablet as directed Orally twice a day Active amLODIPine Besylate 10 MG Tablet 1 tablet Orally Once a day; Duration: 30 day(s) Active Metoprolol Succinate ER 50 MG Tablet Extended Release 24 Hour 1 tablet Orally Once a day; Duration: 30 day(s) Active Sertraline HCl 50 MG Tablet 1 tablet Orally Once a day A ctive Lisinopril 20 MG Tablet 1 tablet Orally Once a day Active Gabapentin 600 MG Tablet 1 tablet Orally Once a day; Duration: 30 day(s) Active Vitamin B Complex - Capsule as directed Orally Active Mounjaro 2.5 MG/0.5ML Solution Auto-injector 2.5 MG (0.5 ML) SUBCUTANEOUSLY EVERY WEEK FOR 4 WEEKS FOR 4 WEEKS Subcutaneous; Duration: 28 Days Active Eliquis 5 MG Tablet as directed Orally Active Ibuprofen Active Immunizations Vaccine Route Administration Date Status Comme nts Influenza Unknown 03/17/2020 Administered Influenza Unknown 03/18/2022 Administered Influenza Unknown 03/25/2023 Refused Social History Social History Drug/Alcohol: Social Info Question Answer Notes AUDIT-C (Standard) Did you have a drink containing alcohol in the past year? Yes How often did you have a drink containing alcohol in the past year? 2 to 4 times a month (2 points) How many drinks did you have on a typical day when you were drinking in the past year? 1 or 2 drinks (0 point) How often did you have six or more drinks on one occasion in the past year? Never (0 point) Points 2 Interpretation Negative Additional Details Category Social Info Options Details Miscellaneous: Marital status: Occupation: Retired Section Notes: He stopped smoking >20 years [...] Status Risk Notes Problem Colon cancer screening (268303124) Colon cancer screening (Z12.11) Active confirmed Problem History of adenomatous polyp of colon (036453934) History of adenomatous polyp of colon (Z86.010) Active confirmed Problem Change in bowel habit (62378068) Change in bowel habit (R19.4) Active confirmed Problem Change in bowel habit (10839322) Change in bowel habits (R19.4) Active confirmed Problem Elevated liver enzymes level (265619209) Elevated liver enzymes (R74.8) Active confirmed Problem Fatty liver (222836318) Fatty liver (K76.0) Active confirmed Problem Gastritis (9985657) Gastritis (K29.70) Active confirmed Problem Gastroesophageal reflux disease (585632052) GERD (gastroesophageal reflux disease) (K21.9) Active confirmed Problem Fatigue (28084577) Fatigue, unspecified type (R53.83) Active confirmed Problem Irritable bowel syndrome (14127143) Irritable bowel syndrome with both constipation and diarrhea (K58.2) Active confirmed Problem Diverticulosis of colon (625667840) Diverticulosis of colon (K57.30) Active confirmed Problem 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) Active confirmed Vital Signs Blood pressure diastolic 77 mm Hg 11/16/2024 Height 72.50 in 11/16/2024 Blood pressure systolic 111 mm Hg 11/16/2024 Weight 234 lbs 11/16/2024 BMI 31.3 kg/m2 11/16/2024 Encounters Encounter Location Date Provider Diagnosis [facility] [address] [place] [address] 11/16/2024 Jayson Carlson Colon cancer screeni ng Z12.11 ; Fatty liver K76.0 ; Irritable bowel syndrome with both constipation and diarrhea K58.2 and History of adenomatous polyp of colon Z86.010 [facility] [address] [place] [address] 07/25/2024 Jayson Carlson Assessments Encounter Date Diagnosis [...] Test Test Name Order Date LIVER PROFILE 11/27/2020 LIVER PROFILE 09/16/2021 LIVER PROFILE 03/27/2022 LIVER PROFILE 09/24/2022 LIVER PROFILE 11/16/2024 IRON + IBC (FE) 03/27/2022 IRON + IBC (FE) 09/16/2021 IRON + IBC (FE) 11/27/2020 FERRITIN 11/27/2020 FERRITIN 03/27/2022 CBC w DIFF 11/16/2024 ALPHA-FETOPROTEIN,TUMOR MARKER ALPHA-FETOPROTEIN,TUMOR MARKER 2 CELIAC PANEL #10 11/27/2020 [...] Name:Jayson Carlson , 11/20/2025 09:30:00 AM, [address], [address], [place], [address], Insurance Providers Payer Name Payer Address Payer Phone Subscriber Number Group Number Insured Name Patient Relationship to Insured Coverage Start Date Coverage End Date [facility] [address] [place] [address] [id number] JUNE MUIR Self - patient is the insured Medical (General) History Medical History History ICD Code HTN Denies [place],CVA,Lung disease,renal disease A-fib Sinus problems IBS Depression [...] a child Sinus surgery Tonsillectomy Vein surgery Cataracts and lenses 2023 Hospitalization History Reason Date(Month/Year)
== END 2025-04-04 11:30 | disposition home or self-care (01) ==
LOC: HO.HCS 10:59
PROVIDERS: PCP Internal Medicine; Visit Provider Internal Medicine Cardiovascular Disease
DX: I50.30 Unspecified diastolic (congestive) heart failure (principal); I48.0 Paroxysmal atrial fibrillation
CPT/HCPCS: 93010; 99214; G2211

== ENCOUNTER → 2025-04-04 10:58 | Outpatient (BNVA) | payer MEDICARE, SELFPAY | PROVIDERS: PCP Internal Medicine; Visit Provider Internal Medicine Cardiovascular Disease | DX: I48.0 Paroxysmal atrial fibrillation (principal); I50.30 Unspecified diastolic (congestive) heart failure | CPT/HCPCS: 93005; 99212 ==

== ENCOUNTER 2025-04-11 12:27 | Outpatient (AMB) | payer MEDICARE, SELFPAY ==
[2025-04-11 12:43] VITALS: BP 136/62; PULSE 58; RESP 18; O2SAT 95; BMI 30.5
--- NOTE | 2025-04-11 12:43 | MHC.PC.OV ---
Vital Signs 04/11/25 12:43 Height 6 ft Weight 225 lb 2 oz BMI 30.5 BP 136/62 Blood Pressure Location Lt brachial Position Sitting Respiration 18 Pulse 58 Pulse Source Pulse Oximeter Temp Source Temporal Artery Scan Pulse Oximetry (%) 95 Oxygen Delivery Method Room Air Intake Visit Reasons: elevated LFTs, DM, hyperlipidemia Delivery Person Required: No Accompanied by: Self / Same As Patient Allergies latex (LATEX) Allergy (Intermediate, Verified 04/11/25 12:54) RASH lisinopril Allergy (Intermediate, Verified 04/11/25 12:54) Angioedema Medication List - Last Reconciled 04/11/25 by Cuong Morris MD acetaminophen 500 mg PO Q6H amlodipine 10 mg PO DAILY apixaban (Eliquis) 5 mg PO BID 90 days atorvastatin 10 mg PO QPM 90 days cholecalciferol (vitamin D3) 50 mcg PO DAILY 90 days cyanocobalamin (vitamin B-12) 1,000 mcg PO .weekly 90 days epinephrine (EpiPen) 0.3 mg (0.3 mL) IM Q4H PRN flecainide 100 mg PO Q12H furosemide 20 mg PO DAILY gabapentin 800 mg PO TID 30 days losartan 25 mg PO DAILY metformin ER 500 mg PO DAILY 90 days metoprolol succinate ER 50 mg PO DAILY omeprazole 20 mg PO DAILY 90 days sertraline 50 mg PO DAILY sitagliptin phosphate (Januvia) 100 mg PO DAILY 90 days tirzepatide (Mounjaro) 2.5 mg (0.5 mL) subcut QWEEK 4 weeks Tobacco use date assessed: 04/11/25 Fall risk assessment: No Falls in past year Last assessed Fall Risk: 04/11/25 Dental Screening Dental Screen Date: 04/11/25 Did you have a dental visit in the last 12 months?: No Did you have a dental problem in the last 6 months where you did not have access to dental care?: No Was dental information given to patient?: No HPI elevated LFTs, DM, hyperlipidemia HPI Details Patient comes in today for his follow-up visit States that he feels okay He continues to experience recurrent joint pains, particularly in his hands, elbows and shoulders States that he usually takes an Ibuprofen everyday to help with his joint pains but has also been taking Turmeric daily for the past couple of months to see if it will help with his aches and pains He denies any headaches or dizziness Denies any chest pains, no shortness of breath No nausea/vomiting, no abdominal pain No change in bowel habits noted Needs a few of his Rx refilled He did not get his follow up labs done prior to his appointment today States that he is scheduled to get his high-dose flu vaccine at his local pharmacy in a few days [facility] Medical History Urinary frequency Vitamin B12 deficiency Vitamin D deficiency Diabetes mellitus Diabetic neuropathy Elevated LFTs Pure hypercholesterolemia Obesity (BMI 30-39.9) Benign essential hypertension Fatty liver Arthritis GERD (gastroesophageal reflux disease) Current use of anticoagulant therapy Depression IBS (irritable bowel syndrome) HTN (hypertension) Paroxysmal atrial fibrillation Surgical History Hx of eye surgery H/O colonoscopy History of esophagogastroduodenoscopy (EGD) Hx of tonsillectomy History of cardiac radiofrequency ablation Hx of sinus surgery Family History Father Diabetes Mother No problems noted. 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 Depression Screening Interpretation: Negative Depression Screening Done: Yes Source: Developed by Drs. Jayson Daniel, Rosemarie Westbrook, Blake Reveles and colleagues, with an educational daly from [employer]. Thrive Questionnaire Date Thrive assessed: 04/11/25 I am a: Patient What is your living situation today?: I have a steady place to live Within the past 12 months, did the food you bought not last and you didn't have the money to get more?: I choose not to answer this question Within the past 12 months, did you worry whether your food would run out before you got money to buy more?: I choose not to answer this question Do you have trouble paying for medicines?: Yes Do you have trouble getting transportation to medical appointments?: No Do you have trouble paying your heating and electricity bill?: No Do you have trouble taking care of your child, family member or friend?: No Do you have trouble with day-to-day activities such as bathing, preparing meals, shopping, managing finances, etc.?: No Are you currently unemployed and looking for a job?: No Are you interested in more education?: No Please select the resources that you would like help with: None Currently or been in a relationship where the following occur: I choose not to answer THRIVE Score: 0 ZI-7 AMB Questionnaire ZI-7 Date ZI - 7 assessed: 10/12/24 Source: Developed by Drs. Jayson Daniel, Rosemarie Westbrook, Blake Reveles and colleagues, with an educational daly from [employer]. Review of Systems Const Denies chills, Denies fatigue, Denies fever(s) and Denies headache(s) ENT Denies dysphagia, Denies dizziness, Denies otalgia, Denies headache(s), Denies neck pain, Denies odynophagia and Denies sore throat Card Denies chest pain, Denies palpitations and Denies dyspnea Resp Denies chest congestion, Denies cough and Denies dyspnea GI Denies abdominal pain, Denies constipation, Denies dysphagia, Denies heartburn, Denies diarrhea, Denies nausea, Denies odynophagia and Denies vomiting Denies difficulty urinating, Denies dysuria, Reports nocturia and Reports urinary frequency Musc Reports back pain (more manageable currently), Reports arthralgias (involving multiple joints - see HPI), Denies neck pain and Reports radiating pain into limb (occasionally, into the right leg) Skin/Breast Denies rash Neuro Denies dizziness and Denies headache(s) Endo Denies fatigue and Denies palpitations Physical exam (Primary Care) Vital Signs: Last Vital Signs Pulse 58 04/11/25 12:43 Resp 18 04/11/25 12:43 BP 136/62 04/11/25 12:43 Pulse Ox 95 04/11/25 12:43 Oxygen Delivery Method Room Air 04/11/25 12:43 BMI result Body Mass Index 30.5 Tobacco/Smoking Status: Tobacco use Status Tobacco use date assessed 04/11/25 04/11/25 12:48 Patient Tobacco Use Status Former Tobacco user 04/11/25 12:45 e-Cigarette/Vaping Use Never Used 04/11/25 12:45 Depression Screening Interpretation: Negative Thrive Assessment: Date of Thrive Assessment Date Thrive assessed 04/11/25 04/11/25 12:48 Currently or been in a relationship where the following occur: I choose not to answer Const General: no acute distress and alert HENMT Ears: TM's normal bilaterally and EAC's normal Throat: Yes posterior oropharynx normal and Yes tonsils normal (no TP congestion) Neck Neck: Yes supple and No lymphadenopathy Thyroid: Thyroid normal Resp Auscultation: clear to auscultation bilaterally, no rales and no wheezes Cardio Rate: regular rate Rhythm: regular rhythm Heart sounds: no murmurs GI Palpation (GI): Soft to palpation and nontender Auscultation: normal bowel sounds General: Yes no CVA tenderness Back/Spine/Pelvis Back: no CVA tenderness Thoracic/Lumbar Spine: lumbar spinal tenderness (mild) and straight leg raise positive (slightly) Skin Rashes: no rashes Extrem General: Yes no clubbing, cyanosis or edema Right upper extremity: Extremity exam: right hand Details: tenderness (involving multiple fingers); no swelling Left upper extremity: hand Details: tenderness (involving multiple fingers); no swelling Coding Level of Care Code Est Pt Level 4 (26413) Diagnoses Type 2 diabetes mellitus without complication, without long-term current use of insulin E11.9 Diabetes mellitus type: type 2 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 insulin use: without remote computer terminal operator use Diabetes mellitus complication status: without complication Paroxysmal atrial fibrillation I48.0 Diastolic dysfunction I51.89 Benign essential hypertension I10 Pure hypercholesterolemia E78.00 Elevated LFTs R79.89 Gastroesophageal reflux disease without esophagitis K21.9 Esophagitis presence: without esophagitis Right-sided low back pain with right-sided sciatica, unspecified chronicity M54.41 Chronicity: unspecified Back pain laterality: right Sciatica presence: with sciatica Sciatica laterality: sciatica of right side Lumbar radiculopathy M54.16 Diabetic polyneuropathy associated with type 2 diabetes mellitus E11.42 Diabetes mellitus type: type 2 Diabetes mellitus complication detail: diabetic polyneuropathy Arthralgia of hands, bilateral M25.541; M25.542 Vitamin D deficiency E55.9 Vitamin B12 deficiency E53.8 Urinary frequency R35.0 Episode of recurrent major depressive disorder, unspecified depression episode severity F33.9 Depression Type: major depressive disorder Major depression recurrence: recurrent Active/Remission status: currently active Major depression episode severity: unspecified Obesity (BMI 30-39.9) E66.9 Assessment & Plan Assessment & Plan (1) Diabetes mellitus: Code(s): E11.9 - Type 2 diabetes mellitus without complications Category: Medical Qualifiers: Diabetes mellitus type: type 2 Diabetes mellitus penitentiary insulin use: without remote computer terminal operator use Diabetes mellitus complication status: without complication Qualified Code(s): E11.9 - Type 2 diabetes mellitus without complications Plan: His in-office HgbA1c today is at 6.0% (HgbA1c was at 7.8% a few months ago) - goal is at least <7.0% but ideally <6.5% Reinforced diabetic diet Continue Januvia 100 mg QD, Metformin ER 500 mg QD and Mounjaro 2.5 mg SQ once a week - states that he's had no problems with Mounjaro since he was started on it at his last visit Will recheck his FBS and HgbA1c in 4 months for follow up (2) Paroxysmal atrial fibrillation: Comment: sees Dr. Macias Code(s): I48.0 - Paroxysmal atrial fibrillation Category: Medical Plan: S/P ablation x 2 Patient currently remains in sinus bradycardia Continue Fleicanide 100 mg Q 12 hours and Metoprolol ER 50 mg QD Continue Eliquis 5 mg BID for thromboembolism prophylaxis Echocardiogram done in May 2021 showed normal LV systolic function with basal septal hypertrophy with mild mitral and tricuspid regurgitation and mild pulmonary hypertension Repeat echocardiogram on 04/27/2024 revealed normal LV ejection fraction of 65-70% with grade 3 diastolic dysfunction, mild biatrial enlargement, mild mitral regurgitation, moderately elevated right ventricular systolic pressure and mildly elevated right atrial pressures, upper limits of normal ascending aortic size and no gross pericardial effusion Follow up with cardiology as scheduled (3) Diastolic dysfunction: Code(s): I51.89 - Other ill-defined heart diseases Category: Medical Plan: Recent echocardiogram done in April 2024 revealed (+) grade 3 diastolic dysfunction Cardiology has previously mentioned to him that he appears to have advanced diastolic dysfunction without any other significant risk factors and his recent findings may suggest incipient heart failure He was sent for some additional work ups, including serum and urine electrophoresis to help assess for possible amyloidosis - labs have so far been negative but he will likely need a PYP scan (and later a cardiac MRI) to help r/o TTR type of amyloidosis Continue Furosemide 20 mg PRN for edema and fluid overload Follow up with cardiology as scheduled (4) Benign essential hypertension: Code(s): I10 - Essential (primary) hypertension Category: Medical Plan: Reinforced low sodium diet - goal is systolic BP of at least 120 to 130 mm or less Continue Losartan 25 mg QD, Amlodipine 10 mg QD and Metoprolol ER 50 mg QD Patient is reminded to continue monitoring his blood pressure regularly (5) Pure hypercholesterolemia: Code(s): E78.00 - Pure hypercholesterolemia, unspecified Category: Medical Plan: He was not able to get his follow up labs done prior to his appointment today Reinforced low cholesterol diet Continue Atorvastatin 10 mg Q PM Will have him recheck his labs and fasting lipids in 6 months for follow up (6) Elevated LFTs: Code(s): R79.89 - Other specified abnormal findings of blood chemistry Category: Medical Plan: His LFTs were still elevated and have increased further from previous (especially his serum AST) when he last had his labs done a few months ago His liver fibrosis panel done back in 2021 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 He admits that he has been drinking some alcohol and also has been taking a lot of Tylenol lately for his joint pains and will try to cut back on these We will continue to monitor his LFTs regularly (7) GERD (gastroesophageal reflux disease): Code(s): K21.9 - Gastro-esophageal reflux disease without esophagitis Category: Medical Qualifiers: Esophagitis presence: without esophagitis Qualified Code(s): K21.9 - Gastro-esophageal reflux disease without esophagitis Plan: Dietary restrictions reinforced Continue Omeprazole 20 mg QD (8) Low back pain: Code(s): M54.50 - Low back pain, unspecified Category: Medical Qualifiers: Chronicity: unspecified Back pain laterality: right Sciatica presence: with sciatica Sciatica laterality: sciatica of right side Qualified Code(s): M54.41 - Lumbago with sciatica, right side Plan: Reinforced activity and weight-lifting restrictions to avoid aggravating his low back pain He was seen by pain management last year and sent for MRI of the lumbar spine for further evaluation and to physical therapy Patient did not get his MRI done as his back was feeling better after a while and he opted not to go for the procedure He also was not seen by physical therapy - states that he chose not to schedule his sessions when his back pain felt better and more manageable with his current Rx Continue Gabapentin 800 mg TID (9) Lumbar radiculopathy: Code(s): M54.16 - Radiculopathy, lumbar region Category: Medical Plan: Patient was sent for MRI of the lumbar spine by pain management but he decided not to go for the procedure when his back pain and related symptoms started feeling better States that his symptoms are currently manageable and he does not wish to pursue any additional testing at this time (10) Diabetic neuropathy: Code(s): E11.40 - Type 2 diabetes mellitus with diabetic neuropathy, unspecified Category: Medical Qualifiers: Diabetes mellitus type: type 2 Diabetes mellitus complication detail: diabetic polyneuropathy Qualified Code(s): E11.42 - Type 2 diabetes mellitus with diabetic polyneuropathy Plan: Patient's EMG & NCV done back on 10/28/22 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 His EMG of the right L4-S1 innervated muscles are consistent with mild distal chronic neuropathic changes Continue Gabapentin 800 mg TID (11) Arthralgia of hands, bilateral: Code(s): M25.541 - Pain in joints of right hand; M25.542 - Pain in joints of left hand Category: Medical Plan: Have advised patient that these are most likely due to osteoarthritis He has reportedly been cautioned by cardiology about taking Ibuprofen due to the fact that he is on Eliquis Will try switching him over to Celecoxib 200 mg QD PRN - patient is reminded that he CANNOT and SHOULD NOT take any other NSAIDs at all when he is on Celecoxib, and that this may also potentially cause him renal damage Will also try to send in some additional labs for further evaluation of his arthralgia when he goes for his follow up labs prior to his next appointment (12) Vitamin D deficiency: Code(s): E55.9 - Vitamin D deficiency, unspecified Category: Medical Plan: Continue Vitamin D3 2000 units QD (13) Vitamin B12 deficiency: Code(s): E53.8 - Deficiency of other specified B group vitamins Category: Medical Plan: Continue OTC Vitamin B12 tablets 1000 mcg once or twice a week (14) Urinary frequency: Code(s): R35.0 - Frequency of micturition Category: Medical Plan: Have advised patient that this may be due to his diabetes but may also be possibly due to his prostate issues getting worse We had him try increasing his Tamsulosin to 0.8 mg Q HS at his last visit but this was changed to Gemtesa 75 mg QD by urology He was also sent for and is now scheduled for abdominal US for further evaluation in a couple of days Follow up with urology as scheduled (15) Depression: Code(s): F32.A - Depression, unspecified Category: Medical Qualifiers: Depression Type: major depressive disorder Major depression recurrence: recurrent Active/Remission status: currently active Major depression episode severity: unspecified Qualified Code(s): F33.9 - Major depressive disorder, recurrent, unspecified Plan: Continue Sertraline 50 mg QD (16) Obesity (BMI 30-39.9): Code(s): E66.9 - Obesity, unspecified Category: Medical Plan: Reinforced diet/exercise as tolerated/lose weight - he has been able to lose at least 15 pounds since his last visit, likely due to his Mounjaro Rx Plan Follow up in 6 months Orders: Orders AMB Hemoglobin A1c Today Z13.9 - Encounter for screening, unspecified Lipid Panel 6 Months E78.00 - Pure hypercholesterolemia, unspecified TSH reflex Free T4 6 Months E78.00 - Pure hypercholesterolemia, unspecified UA CC w/rflx Micro + Cult 6 Months R30.0 - Dysuria Vitamin B12 and Folate 6 Months E53.8 - Deficiency of other specified B group vitamins THEO Reflex Titer and Pattern 6 Months M25.541 - Pain in joints of right hand, M25.542 - Pain in joints of left hand C Reactive Protein 6 Months M25.541 - Pain in joints of right hand, M25.542 - Pain in joints of left hand Hemoglobin A1c 6 Months E11.9 - Type 2 diabetes mellitus without complications Complete Blood Count Auto Diff 6 Months D64.9 - Anemia, unspecified Comprehensive [place]. Panel Fast 6 Months E78.00 - Pure hypercholesterolemia, unspecified Microalbumin, Random (w Creat) 6 Months E11.9 - Type 2 diabetes mellitus without complications Vitamin D 25-OH Total 6 Months E55.9 - Vitamin D deficiency, unspecified NT Pro B Type Natriuretic Pept 6 Months R06.09 - Other forms of dyspnea Rheumatoid Factor 6 Months M25.541 - Pain in joints of right hand, M25.542 - Pain in joints of left hand Erythrocyte Sedimentation Rate 6 Months M25.541 - Pain in joints of right hand, M25.542 - Pain in joints of left hand, M79.7 - Fibromyalgia Medications: New celecoxib Take with food. DO NOT take any other NSAIDs (including Ibuprofen, Naproxen, Motril, Advil, Aleve) together with this 200 mg PO DAILY 90 caps 1RF 90 days Refilled losartan 25 mg PO DAILY 90 tabs 1RF metoprolol succinate ER 50 mg PO DAILY 90 tabs 1RF omeprazole 20 mg PO DAILY 90 caps 1RF 90 days sitagliptin phosphate (Januvia) 100 mg PO DAILY 90 tabs 3RF 90 days atorvastatin 10 mg PO QPM 90 tabs 1RF 90 days E11.9 - Type 2 diabetes mellitus without complications, E78.00 - Pure hypercholesterolemia, unspecified metformin ER 500 mg PO DAILY 90 tabs 1RF 90 days
== END 2025-04-11 13:21 | disposition home or self-care (01) ==
LOC: HO.HMCH 12:28
PROVIDERS: PCP Internal Medicine; Visit Provider Internal Medicine
DX: E11.42 Type 2 diabetes mellitus with diabetic polyneuropathy (principal); I48.0 Paroxysmal atrial fibrillation; I51.89 Other ill-defined heart diseases; I10 Essential (primary) hypertension; E78.00 Pure hypercholesterolemia, unspecified; R79.89 Other specified abnormal findings of blood chemistry; K21.9 Gastro-esophageal reflux disease without esophagitis; M54.41 Lumbago with sciatica, right side; M54.16 Radiculopathy, lumbar region; M25.541 Pain in joints of right hand; M25.542 Pain in joints of left hand; E55.9 Vitamin D deficiency, unspecified; E53.8 Deficiency of other specified B group vitamins; R35.0 Frequency of micturition; F33.9 Major depressive disorder, recurrent, unspecified; E66.9 Obesity, unspecified

== ENCOUNTER → 2025-04-11 12:27 | Outpatient (BNVA) | payer MEDICARE, SELFPAY | PROVIDERS: PCP Internal Medicine; Visit Provider Internal Medicine | DX: I11.9 Hypertensive heart disease without heart failure (principal); I48.0 Paroxysmal atrial fibrillation; E78.00 Pure hypercholesterolemia, unspecified; R79.89 Other specified abnormal findings of blood chemistry; K21.9 Gastro-esophageal reflux disease without esophagitis; M54.41 Lumbago with sciatica, right side; M54.16 Radiculopathy, lumbar region; E11.42 Type 2 diabetes mellitus with diabetic polyneuropathy; M25.541 Pain in joints of right hand; M25.542 Pain in joints of left hand; E55.9 Vitamin D deficiency, unspecified; E53.8 Deficiency of other specified B group vitamins; R35.0 Frequency of micturition; F33.9 Major depressive disorder, recurrent, unspecified; E66.9 Obesity, unspecified; Z68.30 Body mass index [BMI] 30.0-30.9, adult | CPT/HCPCS: 99212 ==

== ENCOUNTER 2025-04-13 08:20 | Outpatient (REF) | payer MEDICARE, SELFPAY ==
--- OUTSIDE RECORDS SUMMARY | 2025-01-11 05:30 | XMS_ITS ---
Author Organization [facility] Address [address] [place] [address] Care Team Providers Care Nodulizer Name Role Phone Arturo CHERRY, [place] Primary Care Provider María Martinez Unavailable [phone] Allergies Allergen (clinical drug ingredient) Drug/Non Drug [...] Active Encounters Encounter Location Date Provider Diagnosis [facility] [address] [place] [address] 01/11/2025 María Capellan Plan Of Treatment Next Appt Details Provider Name:Ligia chiang, 05/08/2025 08:30:00 AM, [address] [place], [address], Progress Notes * Ori TIDWELLDOB: [birth year] (69 yo M)Acc No.[id number]:01/11/2025 Progress Notes Patient: Ori DISLA Provider: Rick Capellan DPM :1955 A ge:69 Y S ex:Male Date:01/11/2025 Address:[address] [place], [place] [phone] Pcp:Cuong Morris MD Subjective: * Chief Complaints: [...] enies. C ardiovascular: Pacemaker d enies. M COMPLEX DIRECTOR d enies. W PW d enies. C [...] 0 01/11/2025 Generated for Lupe colón/Vania/Lizz on: 06/13/2024 08:23 AM EST
--- OUTSIDE RECORDS SUMMARY | 2025-02-28 04:30 | XMS_ITS ---
Author [facility] Address [address] [place] [address] Care Team Providers Care Rn Wellness Name Role Phone Arturo CHERRY, [place] Primary Care Provider María Martinez Unavailable [phone] Allergies Allergen (clinical drug ingredient) Drug/Non Drug Allergy documented on EMR Reaction Allergy Type Onset Date Status Latex Latex (uncoded) Unknown Allergy Acti ve Medications Medication SIG (Take, Route, Frequency, Duration) Notes Start Date End Date Status amLODIPine Besylate 10 MG 1 tablet Orall y Once a day Active Januvia 100 MG 1 tablet Orally Once a day Active Gabapentin 800 MG 1 tablet Orally Once a day Active Furosemide 20 MG 1 tablet Orally Once a day Active Apixaban 5 MG as directed Orally Active Omeprazole 20 MG 1 capsule 1/2 to 1 h our before morning meal Orally Once a day Active Metoprolol Succinate 50 MG 1 capsule Ora lly Once a day Active Losartan Potassium 25 MG 1 tablet Orally Once a day Active Vitamin B12 1000 MCG 1 tablet Orally Onc e a day Active Atorvastatin Calcium 10 MG 1 tablet Oral ly Once a day Active Tamsulosin HCl Activ e metFORMIN HCl 500 MG 1 tablet with a phil l Orally Once a day Active Flecainide Acetate 100 MG 0.5 tablet Ora lly every 12 hrs Active Social History Tobacco Use: Social History [...] Negative Encounters Encounter Location Date Provider Diagnosis [facility] [address] [place] [address] 02/28/2025 María Capellan Plan Of Treatment Next Appt Details Provider Name:Ligia chiang, 05/08/2025 08:30:00 AM, [address] [place], [address], Progress Notes * Ori TIDWELLDOB: (69 yo M)Acc No.[id number]:02/28/2025 Progress Notes Patient: Ori DISLA Provider: Rick Capellan DPM :1955 A ge:69 Y S ex:Male Date:02/28/2025 Address:[address] [place], [place] [phone] Pcp:Cuong Morris MD Subjective: * Chief Complaints: [...] enies. C ardiovascular: Pacemaker d enies. 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 W PW d enies. C [...] with Diabetic - NIDDM. * Social History: T obacco Use: T obacco use other than smoking A re you an other tobacco user? N o Tobacco Control (Standard) T obacco use: N onsmoker A dditional Findings: Tobacco non-user C urrent nonsmoker M iscellaneous: C affeine: yes, frequency: 3 cups per day. Children: yes. Marital status: . Occupation: Retired. D rug/Alcohol: A JAMES-C (Standard) D id you have a drink containing alcohol in the past year? N o P oints 0 I nterpretation N egative * Medications: T aking Flecainide Acetate 100 [...] Pending * Provider: Rick Capellan DPM Date: Generated for Lupe colón/Vania/Lizz on: 06/13/2024 08:23 AM EST
--- NOTE | ~2025-04-13 | US_ITS ---
EXAMINATION: US ABDOMEN COMPLETE WITH LIVER ELASTOGRAPHY HISTORY: FATTY LIVER TECHNIQUE: Real-time grayscale ultrasound imaging of the abdomen was performed and images were reviewed. COMPARISON: Comparison is made with the prior examination dated 05/05/2021. FINDINGS: Liver: The right lobe of the liver measures 16.7 cm in size. The left lobe of the liver measures 12.0 cm in size. The liver demonstrates increased echotexture, consistent with steatosis. No focal mass or intrahepatic biliary ductal dilatation is identified. There is normal hepatopedal flow in the portal vein. Ultrasound elastography of the liver was performed with 10 separate measurements of the liver parenchyma with the patient in the supine position. Measurements were obtained approximately 2 cm below Winter's capsule and perpendicular to the capsule. The median shear wave velocity is 1.83 m/s (previously 1.86 m/s). The interquartile range/median (IQR/median) is 0.26. Gallbladder and biliary tree: The gallbladder is unremarkable, without evidence of calculi, wall thickening, or pericholecystic fluid. There is no sonographic Rivera sign. The common bile duct is normal in caliber measuring 5 mm. Kidneys: The right kidney measures 12.0 cm in length and demonstrates a 2.5 x 2.4 x 2.4 cm cyst at the upper pole and a 4.8 x 4.5 x 4.5 cm cyst at the lower pole. The left kidney measures 11.1 cm in length and demonstrates upper pole cysts measuring 1.9 x 1.9 x 3.2 cm and 2.7 x 2.2 x 2.4 cm. The kidneys are otherwise unremarkable, without evidence of solid masses, hydronephrosis, or calculi. Pancreas: The pancreatic head, neck, and body are unremarkable. The pancreatic tail is obscured by bowel gas. Spleen: The spleen is normal in size and contour, measuring 11.9 cm in length. Abdominal aorta and inferior vena cava: The visualized portions of the abdominal aorta and inferior vena cava are normal in caliber. There is no free fluid in the abdomen. US/US abdomen comp w elastography IMPRESSION: Mild hepatomegaly. Hepatic steatosis. The median shear wave velocity in the liver is 1.83 m/s, corresponding to a median liver stiffness of 10.40 kPa. The IQR/median value is 0.26. This is indicative of a poor quality data set, and the estimated liver stiffness may be unreliable. Findings are indicative of a high elastography value suggestive of compensated advanced chronic liver disease. REFERENCE: Society of Radiologists in Ultrasound Liver Stiffness Thresholds (2020): LIVER STIFFNESS THRESHOLDS: *Shear wave velocity less than 1.3 m/s (Liver Stiffness equal or less than 5 kPa): High probability of being normal. *Shear wave velocity less than 1.7 m/s (Liver Stiffness less than 9 kPa): In the absence of other known clinical signs, rules out compensated advanced chronic liver disease. *Shear wave velocity between 1.7-2.1 m/s (Liver Stiffness 9-13 kPa): Suggestive of compensated advanced chronic liver disease but need further test for confirmation. *Shear wave velocity between 2.1-2.4 m/s (Liver Stiffness 13-17 kPa): Rules in compensated advanced chronic liver disease. *Shear wave velocity greater than 2.4 m/s (Liver Stiffness over 17 kPa): Suggestive of clinically significant portal hypertension. QUALITY OF DATA SET: SIGNIFICANT CHANGE FROM PRIOR EXAM: Significant change if liver stiffness measurement is 10% or greater from prior exam. OTHER CONSIDERATIONS: The stage of liver fibrosis may be overestimated in the setting of acute hepatitis, liver inflammation, elevated liver function tests, hepatic vascular congestion, obstructive cholestasis, non-fasting state, and infiltrative diseases such as amyloidosis and lymphoma. In some patients with NAFLD, the liver stiffness thresholds for compensated advanced chronic liver disease may be lower. In causes other than viral hepatitis and NAFLD, liver stiffness thresholds are not well established. Electronically signed by: Jayson Gomes MD 04/13/2025 09:11 AM [facility]
--- OUTSIDE RECORDS SUMMARY | 2025-04-13 08:23 | XMS_ITS | Patient Health Record ---
Author Organization [facility] Address [address] [place] [address] Care Team Providers Care Tax Technician Name Role Phone Arturo CHERRY, [place] Primary Care Provider Jayson Hummel Unavailable [phone] Allergies Allergen (clinical drug ingredient) Drug/Non Drug [...] Status Risk Notes Problem Colon cancer screening (670954911) Colon cancer screening (Z12.11) Active confirmed Problem History of adenomatous polyp of colon (029860328) History of adenomatous polyp of colon (Z86.010) Active confirmed Problem Change in bowel habit (02653024) Change in bowel habit (R19.4) Active confirmed Problem Change in bowel habit (94483452) Change in bowel habits (R19.4) Active confirmed Problem Elevated liver enzymes level (635036529) Elevated liver enzymes (R74.8) Active confirmed Problem Fatty liver (853878801) Fatty liver (K76.0) Active confirmed Problem Gastritis (5708626) Gastritis (K29.70) Active confirmed Problem Gastroesophageal reflux disease (948805154) GERD (gastroesophageal reflux disease) (K21.9) Active confirmed Problem Fatigue (72205522) Fatigue, unspecified type (R53.83) Active confirmed Problem Irritable bowel syndrome (07107018) Irritable bowel syndrome with both constipation and diarrhea (K58.2) Active confirmed Problem Diverticulosis of colon (561462585) Diverticulosis of colon (K57.30) Active confirmed Problem 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) Active confirmed Vital Signs Blood pressure diastolic 77 mm Hg 11/16/2024 Height 72.50 in 11/16/2024 Blood pressure systolic 111 mm Hg 11/16/2024 Weight 234 lbs 11/16/2024 BMI 31.3 kg/m2 11/16/2024 Encounters Encounter Location Date Provider Diagnosis [facility] [address] [place] [address] 11/16/2024 Jayson Carlson Colon cancer screeni ng Z12.11 ; Fatty liver K76.0 ; Irritable bowel syndrome with both constipation and diarrhea K58.2 and History of adenomatous polyp of colon Z86.010 [facility] [address] [place] [address] 07/25/2024 Jayson Carlson Assessments Encounter Date Diagnosis [...] Name:Jayson Carlson , 11/20/2025 09:30:00 AM, [address], [address], [place], [address], Insurance Providers Payer Name Payer Address Payer Phone Subscriber Number Group Number Insured Name Patient Relationship to Insured Coverage Start Date Coverage End Date [facility] [address] [place] [address] [id number] JUNE MUIR Self - patient is the insured Medical (General) History Medical History History ICD Code HTN Denies NC,CVA,Lung disease,renal disease A-fib Sinus problems IBS Depression [...]
--- OUTSIDE RECORDS SUMMARY | 2025-04-13 08:23 | XMS_ITS | Patient Health Record ---
[facility] Address [address] [place] [address] Care Team Providers Care Photogrammetric Stereo Compiler Name Role Phone Arturo CHERRY, [place] Primary Care Provider María Martinez Unavailable [phone] Allergies Allergen (clinical drug ingredient) Drug/Non Drug [...] Negative Encounters Encounter Location Date Provider Diagnosis [facility] [address] [place] [address] 10/31/2024 María Capellan [facility] [address] [address] [place] [address] 01/09/2025 María Capellan [facility] [address] [place] [address] 02/27/2025 María Capellan Plan Of Treatment Next Appt Details Provider Name:Ligia Juan chiang, 05/08/2025 08:30:00 AM, [address] [place], [address], Insurance Providers Payer Name Payer Address Payer Phone Subscriber Number Group Number Insured Name Patient Relationship to Insured Coverage Start Date Coverage End Date [facility] 65 Medicare Preferred [address] [place] [address] [phone] [id number] Ori Tidwell Self - patient is the insured Medical (General) History Medical History History ICD Code Arthritis covid-19 Depression Diabetic Heart disease High Blood Pressure nerve disorder Psoriasis/eczema raynauds disease Reflux ( GERD) Measles Mumps Chicken pox Surgical History Surgery Date(Month/Year) eye surgery nose surgery cryoablation
== END 2025-04-13 08:21 | disposition home or self-care (01) ==
LOC: HO.US 08:20
PROVIDERS: PCP Internal Medicine; Visit Provider Nurse Practitioner Family
DX: R35.0 Frequency of micturition (principal); R39.15 Urgency of urination; K76.0 Fatty (change of) liver, not elsewhere classified; R39.9 Unspecified symptoms and signs involving the genitourinary system
CPT/HCPCS: 76700; 76981

== ENCOUNTER → 2025-04-13 08:32 | Outpatient (BNV) | payer MEDICARE, SELFPAY | PROVIDERS: PCP Internal Medicine; Visit Provider Radiology Diagnostic Radiology | DX: R35.0 Frequency of micturition (principal) | CPT/HCPCS: 76700 ==

== ENCOUNTER 2025-04-14 07:34 | Outpatient (REF) | payer MEDICARE, SELFPAY ==
--- OUTSIDE RECORDS SUMMARY | 2025-01-11 05:30 | XMS_ITS ---
Author Organization [facility] Address [address] [place] [address] Care Team Providers Care School Treasurer Name Role Phone Arturo CHERRY, [place] Primary Care Provider María Martinez Unavailable [phone] Allergies Allergen (clinical drug ingredient) Drug/Non Drug Allergy documented on EMR Reaction Allergy Type Onset Date Status Information temporarily unavailable Latex (uncoded) Unknown Allergy Active Medications Medication SIG (Take, Route, Frequency, Duration) [...] Active Encounters Encounter Location Date Provider Diagnosis [facility] [address] [place] [address] 01/11/2025 María Capellan Plan Of Treatment Next Appt Details Provider Name:Ligia chiang, 05/08/2025 08:30:00 AM, [address] [place], [address], Progress Notes * Ori TIDWELLDOB: 5 (69 yo M)Acc No.[id number]:01/11/2025 Progress Notes Patient: Ori DISLA Provider: Rick Capellan DPM :1955 A ge:69 Y S ex:Male Date:01/11/2025 Address:[address] [place], [place] [id number] Pcp:Cuong Morris MD Subjective: * Chief Complaints: [...] enies. C ardiovascular: Pacemaker d enies. 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 W PW d enies. C [...] 0 01/11/2025 Generated for Lupe colón/Vania/Lizz on: 06/14/2024 07:37 AM EST
--- OUTSIDE RECORDS SUMMARY | 2025-02-28 04:30 | XMS_ITS ---
Author Organization [facility] Address [address] [place] [address] Care Team Providers Care Production Line Welder Name Role Phone Arturo CHERRY, [place] Primary Care Provider María Martinez Unavailable [phone] Allergies Allergen (clinical drug ingredient) Drug/Non Drug [...] Negative Encounters Encounter Location Date Provider Diagnosis [facility] [address] [place] [address] 02/28/2025 María Capellan Plan Of Treatment Next Appt Details Provider Name:Ligia chiang, 05/08/2025 08:30:00 AM, [address] [place], [address], Progress Notes * Ori TIDWELLDOB: (69 yo M)Acc No.[id number]:02/28/2025 Progress Notes Patient: Ori DISLA Provider: Rick Capellan DPM :1955 A ge:69 Y S ex:Male Date:02/28/2025 Address:[address] [place], [place] [phone] Pcp:Cuong Morris MD Subjective: * Chief Complaints: [...] enies. C ardiovascular: Pacemaker d enies. 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 W PW d enies. C [...] DPM Date: Generated for Lupe colón/Vania/Lizz on: 06/14/2024 07:37 AM EST
--- NOTE | ~2025-04-14 | US_ITS ---
EXAMINATION: US BLADDER HISTORY: R35.0 - Frequency of micturition COMPARISON: There are no prior studies available for comparison. FINDINGS: Sonographic examination of the urinary bladder was performed before and after voiding. Before voiding, the urinary bladder measured 6 x 7.3 x 7.3, centimeters for an estimated volume of 166 mL. After voiding, the urinary bladder measured 4.2 x 1.6 x 3.6 centimeters, for an estimated volume of 13 mL. No intrinsic bladder abnormality is identified. Bilateral ureteral jets are identified. The prostate gland is slightly enlarged and measures 4.9 x 3.6 x 4 cm, volume 37 mL. US/US bladder IMPRESSION: Normal bladder ultrasound. No post void residual. Slightly enlarged prostate gland. Electronically signed by: Theresa Patino MD 04/16/2025 08:16 AM [facility]
--- OUTSIDE RECORDS SUMMARY | 2025-04-14 07:37 | XMS_ITS | Patient Health Record ---
Author Organization [facility] Address [address] [place] [address] Care Team Providers Care Commercial Credit Head Name Role Phone Arturo CHERRY, Cuong Primary Care Provider María Martinez Unavailable [phone] Allergies Allergen (clinical drug ingredient) Drug/Non Drug Allergy documented on EMR Reaction Allergy Type Onset Date Status Information temporarily unavailable Latex (uncoded) Unknown Allergy Active Reason For Referral No [...] Negative Encounters Encounter Location Date Provider Diagnosis [facility] [address] [place] [address] 10/31/2024 María Capellan [facility] [address] [place] [address] 01/09/2025 María Capellan [facility] [address] [place] [address] 02/27/2025 María Capellan Plan Of Treatment Next Appt Details Provider Name:Ligia Juan chiang, 05/08/2025 08:30:00 AM, [address] [place], [address], Insurance Providers Payer Name Payer Address Payer Phone Subscriber Number Group Number Insured Name Patient Relationship to Insured Coverage Start Date Coverage End Date [facility] 65 Medicare Preferred [address] [place] [address] [id number] Ori Tidwell Self - patient is the insured Medical (General) History Medical History History ICD Code Arthritis covid-19 Depression Diabetic Heart disease High Blood Pressure nerve disorder Psoriasis/eczema raynauds disease Reflux ( GERD) Measles Mumps Chicken pox Surgical History Surgery Date(Month/Year) eye surgery nose surgery cryoablation
--- OUTSIDE RECORDS SUMMARY | 2025-04-14 07:37 | XMS_ITS | Patient Health Record ---
Author Organization [facility] Address [address] [place] [address] Care Team Providers Care Safety Lead Name Role Phone Cuong Morris MD Primary Care Provider UnaJayson Leach Unavailable [phone] Allergies Allergen (clinical drug ingredient) Drug/Non Drug Allergy documented on EMR Reaction Allergy Type Onset Date Status Information temporarily unavailable Latex Unknown Allergy Active Results Component Value Reference Range Notes US abdomen comp w elastograp hy (Not yet reviewed by provider) Interpretation: Performing Lab: Notes/Report: [facility] [address] [place] [id number] Ultrasound Report Signed Patient: June Tidwell MR#: [id number] : 1955 Acct:[id number] Age/Sex: 69 / M ADM Date: 04/13/25 Loc: HO.US Attending Dr: Roxana Willett [facility] Ordering Physician: Jayson Carlson MD Date of Service: 04/13/25 Procedure(s): US abdomen comp w elastography Accession Number(s): [id number] cc: Cuong Morris MD; Jayson Carlson MD Reason for Exam: FATTY LIVER EXAMINATION: US ABDOMEN COMPLETE WITH LIVER ELASTOGRAPHY HISTORY: FATTY LIVER TECHNIQUE: Real-time grayscale ultrasound imaging of the abdomen was performed and images were reviewed. COMPARISON: Comparison is made with the prior examination dated 05/05/2021. FINDINGS: Liver: The right lobe of the liver measures 16.7 cm in size. The left lobe of the liver measures 12.0 cm in size. The liver demonstrates increased echotexture, consistent with steatosis. No focal mass or intrahepatic biliary ductal dilatation is identified. There is normal hepatopedal flow in the portal vein. Ultrasound elastography of the liver was performed with 10 separate measurements of the liver parenchyma with the patient in the supine position. Measurements were obtained approximately 2 cm below Winter's capsule and perpendicular to the capsule. The median shear wave velocity is 1.83 m/s (previously 1.86 m/s). The interquartile range/median (IQR/median) is 0.26. Gallbladder and biliary tree: The gallbladder is unremarkable, without evidence of calculi, wall thickening, or pericholecystic fluid. There is no sonographic Rivera sign. The common bile duct is normal in caliber measuring 5 mm. Kidneys: The right kidney measures 12.0 cm in length and demonstrates a 2.5 x 2.4 x 2.4 cm cyst at the upper pole and a 4.8 x 4.5 x 4.5 cm cyst at the lower pole. The left kidney measures 11.1 cm in length and demonstrates upper pole cysts measuring 1.9 x 1.9 x 3.2 cm and 2.7 x 2.2 x 2.4 cm. The kidneys are otherwise unremarkable, without evidence of solid masses, hydronephrosis, or calculi. Pancreas: The pancreatic head, neck, and body are unremarkable. The pancreatic tail is obscured by bowel gas. Spleen: The spleen is normal in size and contour, measuring 11.9 cm in length. Abdominal aorta and inferior vena cava: The visualized portions of the abdominal aorta and inferior vena cava are normal in caliber. There is no free fluid in the abdomen. US/US abdomen comp w elastography IMPRESSION: Mild hepatomegaly. Hepatic steatosis. The median shear wave velocity in the liver is 1.83 m/s, corresponding to a median liver stiffness of 10.40 kPa. The IQR/median value is 0.26. This is indicative of a poor quality data set, and the estimated liver stiffness may be unreliable. Findings are indicative of a high elastography value suggestive of compensated advanced chronic liver disease. REFERENCE: Society of Radiologists in Ultrasound Liver Stiffness Thresholds (2020): LIVER STIFFNESS THRESHOLDS: *Shear wave velocity less than 1.3 m/s (Liver Stiffness equal or less than 5 kPa): High probability of being normal. *Shear wave velocity less than 1.7 m/s (Liver Stiffness less than 9 kPa): In the absence of other known clinical signs, rules out compensated advanced chronic liver disease. *Shear wave velocity between 1.7-2.1 m/s (Liver Stiffness 9-13 kPa): Suggestive of compensated advanced chronic liver disease but need further test for confirmation. *Shear wave velocity between 2.1-2.4 m/s (Liver Stiffness 13-17 kPa): Rules in compensated advanced chronic liver disease. *Shear wave velocity greater than 2.4 m/s (Liver Stiffness over 17 kPa): Suggestive of clinically significant portal hypertension. QUALITY OF DATA SET: SIGNIFICANT CHANGE FROM PRIOR EXAM: Significant change if liver stiffness measurement is 10% or greater from prior exam. OTHER CONSIDERATIONS: The stage of liver fibrosis may be overestimated in the setting of acute hepatitis, liver inflammation, elevated liver function tests, hepatic vascular congestion, obstructive cholestasis, non-fasting state, and infiltrative diseases such as amyloidosis and lymphoma. In some patients with NAFLD, the liver stiffness thresholds for compensated advanced chronic liver disease may be lower. In causes other than viral hepatitis and NAFLD, liver stiffness thresholds are not well established. Electronically signed by: Jayson Gomes MD 04/13/2025 09:11 AM [facility] Dictated By: Jayson Gomes MD Signed By: <Electronically signed by Jayson Gomes MD in OV> 04/13/25910 DD/ 1 TD/TT: 04/13/25 0854 Pole Maker: Reason For Referral No Information Medications Medication [...] Problem Status W/U Status Risk Notes Problem Information temporarily unavailable Colon cancer screening (Z12.11) Active confirmed Problem Information temporarily unavailable History of adenomatous polyp of colon (Z86.010) Active confirmed Problem Information temporarily unavailable Change in bowel habit (R19.4) Active confirmed Problem Information temporarily unavailable Change in bowel habits (R19.4) Active confirmed Problem Information temporarily unavailable Elevated liver enzymes (R74.8) Active confirmed Problem Information temporarily unavailable Fatty liver (K76.0) Active confirmed Problem Information temporarily unavailable Gastritis (K29.70) Active confirmed Problem Information temporarily unavailable GERD (gastroesophageal reflux disease) (K21.9) Active confirmed Problem Information temporarily unavailable Fatigue, unspecified type (R53.83) Active confirmed Problem Information temporarily unavailable Irritable bowel syndrome with both constipation and diarrhea (K58.2) Active confirmed Problem Information temporarily unavailable Diverticulosis of colon (K57.30) Active confirmed Problem Information temporarily unavailable 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) Active confirmed Vital Signs Blood pressure diastolic 77 mm Hg 11/16/2024 Height 72.50 in 11/16/2024 Blood pressure systolic 111 mm Hg 11/16/2024 Weight 234 lbs 11/16/2024 BMI 31.3 kg/m2 11/16/2024 Encounters Encounter Location Date Provider Diagnosis [facility] [address] [place] [address] 11/16/2024 Jayson Carlson Colon cancer screeni ng Z12.11 ; Fatty liver K76.0 ; Irritable bowel syndrome with both constipation and diarrhea K58.2 and History of adenomatous polyp of colon Z86.010 [facility] [address] [place] [address] 07/25/2024 Jayson Aldo Assessments Encounter Date Diagnosis (ICD Code) Assessment [...] 03/27/2022 US abdomen comp w elastography 5 US abdomen comp w elastography 5 Future Test Test Name Order Date COLONOSCOPY 07/01/2011 COLONOSCOPY 11/04/2016 UPPER GI ENDOSCOPY 03/30/2021 COLONOSCOPY 09/16/2021 Next Appt Details Provider Name:Jayson Carlson , 11/20/2025 09:30:00 AM, [address] [facility], [address], [place], [address], Insurance Providers Payer Name Payer Address Payer Phone Subscriber Number Group Number Insured Name Patient Relationship to Insured Coverage Start Date Coverage End Date [facility] [address] [place] [address] [id number] JUNE TIDWELL Self - patient is the insured Medical (General) History Medical History History ICD Code HTN Denies [place],CVA,Lung disease,renal disease A-fib Sinus problems IBS Depression [...] tilt table test Surgical History Surgery Date(Month/Year) Eye surgery as a child Sinus surgery Tonsillectomy Vein surgery Cataracts and lenses 2023 Hospitalization History Reason Date(Month/Year)
== END 2025-04-14 07:35 | disposition home or self-care (01) ==
LOC: HO.US 07:34
PROVIDERS: Visit Provider Nurse Practitioner Family
DX: R35.0 Frequency of micturition (principal); R39.15 Urgency of urination
CPT/HCPCS: 76857

== ENCOUNTER → 2025-04-14 07:36 | Outpatient (BNV) | payer MEDICARE, SELFPAY | PROVIDERS: Visit Provider Radiology Diagnostic Radiology | DX: R35.0 Frequency of micturition (principal) | CPT/HCPCS: 76857 ==

== ENCOUNTER 2025-05-09 09:38 | Outpatient (AMB) | payer MEDICARE, SELFPAY ==
--- OUTSIDE RECORDS SUMMARY | 2025-01-11 05:30 | XMS_ITS ---
Author Organization [facility] Address [address] [place] [address] Care Team Providers Care Tourist Escort Name Role Phone Arturo CHERRY, [place] Primary Care Provider María Martinez Unavailable [phone] Allergies Allergen (clinical drug ingredient) Drug/Non Drug [...] Active Encounters Encounter Location Date Provider Diagnosis [facility] [address] [place] [address] 01/11/2025 María Capellan Plan Of Treatment Next Appt Details Provider Name:Ligia chiang, 08/07/2025 09:00:00 AM, [address] [place], [address], Progress Notes * Ori TIDWELL JDOB: [birth year] (69 yo M)Acc No.[id number]:01/11/2025 Progress Notes Patient: Ori DISLA Provider: Rick Capellan DPM :1955 A ge:69 Y S ex:Male Date:01/11/2025 Address:[address] [place], [place] [id number] Pcp:Cuong Morris MD Subjective: * Chief Complaints: [...] enies. C ardiovascular: Pacemaker d enies. 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 W PW d enies. C [...] 0 01/11/2025 Generated for Lupe colón/Vania/Lizz on: 07/10/2024 09:43 AM EST
--- OUTSIDE RECORDS SUMMARY | 2025-02-28 04:30 | XMS_ITS ---
Author Organization [facility] Address [address] [place] [address] Care Team Providers Care Transit Mixer Driver Name Role Phone Arturo CHERRY, Cuong Primary Care Provider María Martinez Unavailable [phone] Allergies Allergen (clinical drug ingredient) Drug/Non Drug [...] Negative Encounters Encounter Location Date [facility] [address] [place] [address] 02/28/2025 María Capellan Plan Of Treatment Next Appt Details Provider Name:Ligia chiang, 08/07/2025 09:00:00 AM, [address] [place], [address], Progress Notes * YAW, Ori BanksDOB: [birth year] (69 yo M)Acc No.[id number]:02/28/2025 Progress Notes Patient: Ori DISLA Provider: Rick Capellan DPM :1955 A ge:69 Y S ex:Male Date:02/28/2025 Address:[address] [place], [place] [id number] Pcp:Cuong Morris MD Subjective: * Chief Complaints: [...] enies. C ardiovascular: Pacemaker d enies. 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 W PW d enies. [...] DPM Date: Generated for Lupe colón/Vania/Lizz on: 07/10/2024 09:44 AM EST
--- OUTSIDE RECORDS SUMMARY | 2025-05-08 03:30 | XMS_ITS ---
[facility] Address [address] [place] [address] Care Team Providers Care Brick Pitcher Name Role Phone Arturo CHERRY, Cuong Primary Care Provider María Martinez Unavailable [phone] ColeenLavelleen Unavailable [phone] Allergies Allergen (clinical drug ingredient) Drug/Non Drug Allergy documented on EMR Reaction Allergy Type Onset Date Status Latex Latex (uncoded) Unknown Allergy Acti ve REASON FOR VISIT At Risk Footcare, Toe Irritation, Skin Problem Medications Medication SIG (Take, Route, Frequency, Duration) Notes Start Date End Date Status metFORMIN HCl 500 MG 1 tablet with a phil l Orally Once a day Active Tamsulosin HCl Activ e Omeprazole 20 MG 1 capsule 1/2 to 1 h our before morning meal Orally Once a day Active Extra Depth Orthopedic Shoes (1 Pair) with Customized Heat Molded Multidensity Innersoles (3 Pair) Dx: NIDDM/Polyneuropathy (E11.42), Hammertoe Foot Deformity (M20.41,M20.42), Preulcerative Skin Lesion(s) (L85.1); Duration: 365 days 05/08/2025 Active Flecainide Acetate 100 MG 0.5 tablet Ora lly every 12 hrs Active Gabapentin 800 MG 1 tablet Orally Once a day Active Ketoconazole 2 % 1 application Apply a thin layer to externally to feet, even between toes Twice a day; Duration: 30 days Active Januvia 100 MG 1 tablet Orally Once a day Active amLODIPine Besylate 10 MG 1 tablet Orally Once a day Active Furosemide 20 MG 1 tablet Orally Once a day Active Losartan Potassium 25 MG 1 tablet Orally Once a day Active Metoprolol Succinate 50 MG 1 capsule Ora lly Once a day Active Atorvastatin Calcium 10 MG 1 tablet Orally Once a day Active Vitamin B12 1000 MCG 1 tablet Orally Once a day Active [...] ast year? No Points 0 Interpretation Negative Problems Problem Type SNOMED Code ICD Code Onset Dates Problem Status W/U Status Risk Notes Problem Polyneuropathy due to type 2 diabetes mellitus (816006206) Type 2 diabetes mellitus with diabetic polyneuropathy (E11.42) Active confirmed Problem Acquired hammer toe of right foot (6314690419757896 ) Other hammer toe(s) (acquired), right foot (M20.41) Active confirmed Problem Acquired hammer toe of left foot (5418960326480790 ) Other hammer toe(s) (acquired), left foot (M20.42) Active confirmed Problem Localized, primary osteoarthritis of the ankle and/or foot (997810874) Primary osteoarthritis, right ankle and foot (M19.071) Active confirmed Problem Localized, primary osteoarthritis of the ankle and/or foot (174185717) Primary osteoarthritis, left ankle and foot (M19.072) Active confirmed Vital Signs Height 6 ft 1in in 05/08/2025 Weight 222 lbs 05/08/2025 BMI 29.29 kg/m2 05/08/2025 Blood pressure systolic 130 mm Hg 05/08/20 25 Blood pressure diastolic 70 mm Hg 025 Encounters Encounter Location Date Provider Diagnosis [facility] [address] [place] [address] 05/08/2025 Ligia Horne Type 2 diabetes mellitus with diabetic polyneuropathy E11.42 ; Primary osteoarthritis, left ankle and foot M19.072 ; Tinea unguium B35.1 ; Other hammer toe(s) (acquired), right foot M20.41 ; Other hammer toe(s) (acquired), left foot M20.42 ; Tinea pedis of both feet B35.3 ; Primary osteoarthritis, right ankle and foot M19.071 ; Flat foot [pes planus] (acquired), right foot M21.41 and Flat foot [pes planus] (acquired), left foot M21.42 Assessments Encounter Date Diagnosis (ICD Code) Assessment Notes Treatment Notes Treatment Clinical Notes Section Notes 05/08/2025 Type 2 diabetes mellitus with diabetic polyneuropathy (ICD-10 - E11.42) 05/08/2025 Primary osteoarthritis, left ankle and foot (ICD-10 - M19.072) 05/08/2025 Tinea unguium (ICD-10 - B35.1) 05/08/2025 Other hammer toe(s) (acquired), right foot (ICD-10 - M20.41) Patient Educated with: DIABETIC FOOT CARE INSTRUCTIONS. pdf (DIABETIC FOOT CARE INSTRUCTIONS. pdf) 05/08/2025 Other hammer toe(s) (acquired), left foot (ICD-10 - M20.42) 05/08/2025 Tinea pedis of both feet (ICD-10 - B35.3) Patient Educated with: ATHELETE .pdf (ATHELETE .pdf) 05/08/2025 Primary osteoarthritis, right ankle and foot (ICD-10 - M19.071) 05/08/2025 Flat foot [pes planus] (acquired), right foot (ICD-10 - M21.41) 05/08/2025 Flat foot [pes planus] (acquired), left foot (ICD-10 - M21.42) Plan Of Treatment Medication Medication Name Sig Start Date Stop Date Notes Extra Depth Orthopedic Shoes (1 Pair) with Customized Heat Molded Multidensity Innersoles (3 Pair) Dx: NIDDM/Polyneuropathy (E11.42), Hammertoe Foot Deformity (M20.41,M20.42), Preulcerative Skin Lesion(s) (L85.1); Duration: 365 days 05/08/2025 Ketoconazole 2 % 1 application Apply a thin layer to externally to feet, even between toes Twice a day; Duration: 30 days Treatment Notes Assessment Notes Other hammer toe(s) (acquired), right fo ot Patient Educated with: DIABETIC FOOT CARE INSTRUCTIONS.pdf (DIABETIC FOOT CARE INSTRUCTIONS.pdf) Tinea pedis of both feet Patient Educate d with: ATHELETE .pdf (ATHELETE .pdf) Pending Test Test Name Order Date X ray : Foot, left 3V 05/08/2025 X ray : Foot, right 3V 05/08/2025 Next Appt Details Follow Up: 3 Months, Reason: Provider Name:Ligia Juan chiang, 08/07/2025 09:00:00 AM, [address] [place] [address], [phone], Procedure Notes * Category Sub-Category Detail Notes Debride Nail 6-10 Nail debridement Due to the cl inical pathology outlined in the exam findings, performance of this nail treatment is medically necessary as its management by an unskilled/untrained nonprofessional would put this patients foot and overall health at risk. Therefore, debridement to affected nail(s), as described in exam ( TA, T1, T2, T3, T4, T5, T6, T7, T8, T9, ), was performed exclusively by the physician of record to reduce/remove overall nail length, girth, thickness, subungual debris, and necrotic tissue, by manual and/or electrical means through the use of a nail nipper and/or dremel-type shot grinder operator, to a more viable healthy nail plate or bed tissue 6-10 nails in total. Silver nitrate was used for any petechial bleeding as necessary. Definitive antifungal treatment options, both pharmaceutical and surgical, have been reviewed and discussed with the patient. The patient solely prefers the use of intermittent/as needed professional debridement services for their nail condition and understands the need for additional periodic treatments to maintain effectiveness in symptomatic relief - 17905 Keratoma Treatment Parring or Cutting o f Benign Hyperkeratotic Lesion(s) (-57) More than 4 Lesions - Due to the at risk nature of the patients medical condition as documented in the exam findings, performance of this keratoderma treatment is medically necessary as its management by an unskilled/untrained nonprofessional would put this patients foot and overall health at risk. Therefore, the benign hyperkeratotic lesions, (8) in total, locations as stated and described in the exam ( Medial plantar, IPJ, TA, T5, SUB MTH (s), 1, 5, B/L, Plantar Heel(s), B/L), were pared, and/or cut utilizing a sterile 15 blade, tissue nippers, and/or power dremel instrumentation by the physician of record - 06682 Progress Notes * Ori TIDWELLDOB: [birth year] (69 yo M)Acc No.[id number]:05/08/2025 Progress Notes Patient: Ori DISLA Provider: Violet Horne DPM :1955 A ge:69 Y S ex:Male Date:05/08/2025 Address:[address] [place] [address], [id number] Pcp:Cuong Morris MD Subjective: * Chief Complaints: * A t Risk FootcareToe IrritationSkin Problem * HPI: A t Risk footcare: Pt States Last PCP Visit: D ate: 1 T oe pain: Location: B /L feet. Duration: s everal years. Course: w orse. Aggravated by: s hoes, any pressure. Treatments: c hange in shoes. S kin problems: Nature: s caling , redness. Location: B /L . Duration: s everal days. Course: w orse. Treatments: T opical OTC antifungal powder/cream has not relieved condition. F oot Pain: Nature: a marlene, stiffness, throbbing, tenderness. Location: B /L. Duration: s everal years. Onset: g radual. Course: w orse. Aggravated: s tanding, walking, shoes. Treatments: r est/alter normal daily activity, change in shoes, Custom orthotics. * ROS: G eneral/Constitutional: Nausea d enies. [...] enies. C ardiovascular: Pacemaker d enies. 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 W PW d enies. C [...] T remors d enies. * Medical History: * Surgical History: e ye surgery nose surgery cryoablation * Hospitalization/Major Diagno stic Procedure: D enies Past Hospitalization * Family History: M other: . F ather: , diagnosed with Diabetic - NIDDM. S iblings: diagnosed with Diabetic - NIDDM. * Social History: T obacco Use: T obacco use other than smoking A re you an other tobacco user? N o Tobacco Control (Standard) T obacco use: N onsmoker A dditional Findings: Tobacco non-user C urrent nonsmoker D rugs/Alcohol: D rugs H ave you used drugs other than those for medical reasons in the past 12 months? N o M iscellaneous: C affeine: yes, frequency: 3 cups per day. Children: yes. Exercise: no. Marital status: . Occupation: Retired. D rug/Alcohol: A JAMES-C (Standard) D id you have a drink containing alcohol in the past year? N o P oints 0 I nterpretation N egative * Medications: T akingFlecainide Acetate 100 MG Tablet 0.5 tablet Orally every 12 hrs metFORMIN HCl 500 MG Tablet 1 tablet with a meal Orally Once a day Tamsulosin HCl Omeprazole 20 MG Capsule Delayed Release 1 capsule 1/2 to 1 hour before morning meal Orally Once a day Losartan Potassium 25 MG Tablet 1 tablet Orally Once a day Metoprolol Succinate 50 MG Capsule ER 24 Hour Sprinkle 1 capsule Orally Once a day Atorvastatin Calcium 10 MG Tablet 1 tablet Orally Once a day Vitamin B12 1000 MCG Tablet 1 tablet Orally Once a day Apixaban 5 MG Tablet as directed Orally Januvia 100 MG Tablet 1 tablet Orally Once a day amLODIPine Besylate 10 MG Tablet 1 tablet Orally Once a day Furosemide 20 MG Tablet 1 tablet Orally Once a day Gabapentin 800 MG Tablet 1 tablet Orally Once a day Medication List reviewed and reconciled with the patientTaking Flecainide Acetate 100 MG Tablet 0.5 tablet Orally every 12 hrs Taking metFORMIN HCl 500 MG Tablet 1 tablet with a meal Orally Once a day Taking Tamsulosin HCl Taking Omeprazole 20 MG Capsule Delayed Release 1 capsule 1/2 to 1 hour before morning meal Orally Once a day Taking Losartan Potassium 25 MG Tablet 1 tablet Orally Once a day Taking Metoprolol Succinate 50 MG Capsule ER 24 Hour Sprinkle 1 capsule Orally Once a day Taking Atorvastatin Calcium 10 MG Tablet 1 tablet Orally Once a day Taking Vitamin B12 1000 MCG Tablet 1 tablet Orally Once a day Taking Apixaban 5 MG Tablet as directed Orally Taking Januvia 100 MG Tablet 1 tablet Orally Once a day Taking amLODIPine Besylate 10 MG Tablet 1 tablet Orally Once a day Taking Furosemide 20 MG Tablet 1 tablet Orally Once a day Taking Gabapentin 800 MG Tablet 1 tablet Orally Once a day Medication List reviewed and reconciled with the patient * Allergies: L victoriano[Allergies Verified] Objective: * Vitals: H t:6 ft 1in, Wt:222, BMI:29.29, Shoe size:10W, BP:130/70mm Hg, BS:not taken, Ht- cm: 185.42 cm, Wt-k.7 kg. * P ast Orders: L ab:HEMOGLOBIN A1C (GLYCOHEMOGLOBIN) (Order Date - 02/16/2025) (Collection Date & Time - 05/08/2025 08:34 AM) Value Reference Range HEMOGLOBIN A1C % (HH) 6.0 * Examination: O phthalmology Referral: DIABETES EYE EXAM P rocedure Performed: Gabino Chavarria ate of Exam Performed 0 01/19/2025 D iabetic Retinopathy Screening: Y es F indings of Diabetic Eye Exam: n o retinopathy N eurological: SENSORY: N eurological exam demonstrates a loss of protective sensation by an absence of tested sensitivity to 5.07 Mckinney-Roselia monofilament at 2 or more sites out of 5 total locations, each foot. N ails: NAILS are: E longated, overgrown, dystrophic, lytic, greater than 3mm thick, discolored and friable with crumbly malodorous subungual debris , TA, T1, T2, T3, T4, T5, T6, T7, T8, T9. D ermatologic: SKIN FINDINGS: S kin shows sign(s) of, erythema, scaling, in a moccasin fashion, no fissure(s) present, B/L , Skin exam reveals Keratotic lesion(s) located at , Medial plantar, IPJ, TA, T5, SUB MTH (s), 1, 5, B/L, Plantar Heel(s), B/L. O rthopedic: MUSCLE STRENGTH: 5 /5 all groups in a symmetrical fashion, B/L. GAIT ABNORMALITY: P ronated, abducted angle and base of gate. FOOT MORPHOLOGY: R igid medial/plantar protrusion of Midfoot at area of Navicular tuberosity, LEFT, Pes Planus structure, Semi-rigid, B/L, Prominent, painful 1st Met-Cuneiform joint without inflammation, B/L. DIGITAL DEFORMITIES: D igital contracture, PIPJ, 2-5 B/L, incompl-reducible to push-up test, no over, nor underlapping, t here is e vidence of shoe producing skin irritation. FOOTWEAR EVALUATION: N on-Diabetic with no OT. ? G eneral Examination: GENERAL APPEARANCE: R eveals a pleasant, alert, well nourished, well-developed, well hydrated individual, who demonstrates proper attention to hygiene/body habitus, and is in no acute distress, Pt serves as own historian for office visit today. ORIENTED: p erson, place, and time. FOOT EXAM: L ower Extremity Neurological Exam performed:?Yes V isual exam of foot performed: Y es D ate 1 07/09/2024 S ensory testing performed: s ensations diminished Footwear Evaluation F ootwear Evaluation performed: Y es V ascular: DP PULSES (B): 3 /4, B/L. PT PULSES (B): 3 /4, B/L. CAPILLARY FILL TIME: i mmediate, all digits, B/L. TROPHIC CONDITION-TEXTURE/ELASTICITY/TURGOR/HAIR GROWTH (B):?decreased, with sparse to absent hair growth, B/L. TEMPERTURE GRADIENT (C): d ecreased, cool to cool, proximal to distal, B/L. PIGMENTATION: n ormal, B/L. EDEMA (C): a bsent, B/L. X -Rays - IMAGING REPORT: Clinical Indication(s): E valuate Biomechanical Deformity.? Views: 3 views of Foot, B/L, AP, LAT, LO, Taken by a trained Podiatric Fermenter Champagne ( EF). Findings: m ild generalized decrease in bone density, navicular/cuneiform plantar subluxation with anterior cyma line, eburnation dorsal 1st MT/Cun. jt, dorsal degenerative changes of the tarsal joints. Foot structure: r eveals excess pronation with, anterior break in cyme line, increased talar declination, decreased calcaneal inclination L>R. Digits: s how asymmetrical joint space narrowing at the PIPJ consistent with clinical finding of hammertoe deformity. Fracture: N egative fractures identified. Signs of Osteomyelitis A bsent. Assessment: * Assessment: 1. T ype 2 diabetes mellitus with diabetic polyneuropathy - E11.42 2 . P rimary osteoarthritis, left ankle and foot - M19.072 (Primary) S pecify :Chronic problem, Worse (4) 3 . T inea unguium - B35.1 4 . O ther hammer toe(s) (acquired), right foot - M20.41 S pecify :Chronic problem, Worse (4), Rx Management (4) 5 . O ther hammer toe(s) (acquired), left foot - M20.42 S pecify :Chronic problem, Worse (4), Rx Management (4) 6 . T inea pedis of both feet - B35.3 S pecify :Acute problem, Uncomplicated (3), Rx drug management (4) 7 . P rimary osteoarthritis, right ankle and foot - M19.071 8 . F lat foot [pes planus] (acquired), right foot - M21.41 9 . F lat foot [pes planus] (acquired), left foot - M21.42 Plan: * Treatment: 2. O ther hammer toe(s) (acquired), right foot Start Extra Depth Orthopedic Shoes (1 Pair) with Customized Heat Molded Multidensity Innersoles (3 Pair), Dx: NIDDM/Polyneuropathy (E11.42), Hammertoe Foot Deformity (M20.41,M20.42), Preulcerative Skin Lesion(s) (L85.1), 365 days, 1, Refills 0. Notes: Patient Educated with: DIABETIC FOOT CARE INSTRUCTIONS.pdf (DIABETIC FOOT CARE INSTRUCTIONS.pdf) 3. T inea pedis of both feet Start Ketoconazole Cream, 2 %, 1 application, Apply a thin layer to externally to feet, even between toes, Twice a day, 30 days, 90, Refills 3. Notes: Patient Educated with: ATHELETE .pdf (ATHELETE .pdf) 4. P rimary osteoarthritis, right ankle and foot I maging: X ray : Foot, right 3V * Procedures: D ebride Nail 6-10: Nail debridement D ue to the clinical pathology outlined in the exam findings, performance of this nail treatment is medically necessary as its management by an unskilled/untrained nonprofessional would put this patients foot and overall health at risk. Therefore, debridement to affected nail(s), as described in exam ( TA, T1, T2, T3, T4, T5, T6, T7, T8, T9, ), was performed exclusively by the physician of record to reduce/remove overall nail length, girth, thickness, subungual debris, and necrotic tissue, by manual and/or electrical means through the use of a nail nipper and/or dremel- type shot grinder operator, to a more viable healthy nail plate or bed tissue 6-10 nails in total. Silver nitrate was used for any petechial bleeding as necessary. Definitive antifungal treatment options, both pharmaceutical and surgical, have been reviewed and discussed with the patient. The patient solely prefers the use of intermittent/as needed professional debridement services for their nail condition and understands the need for additional periodic treatments to maintain effectiveness in symptomatic relief - 09694. K eratoma Treatment: Parring or Cutting of Benign Hyperkeratotic Lesion(s) ( -57) More than 4 Lesions - Due to the at risk nature of the patients medical condition as documented in the exam findings, performance of this keratoderma treatment is medically necessary as its management by an unskilled/untrained nonprofessional would put this patients foot and overall health at risk. Therefore, the benign hyperkeratotic lesions, (8) in total, locations as stated and described in the exam ( M edial plantar, I PJ, T A, T 5, S UB MTH (s), 1 , 5 , B /L, P lantar Heel(s), B /L), were pared, and/or cut utilizing a sterile 15 blade, tissue nippers, and/or power dremel instrumentation by the physician of record - 72529. * Procedure Codes: 1 1721 DEBRIDE NAIL, 6 OR MORE, Modifiers: XS 28174 X-RAY EXAM OF RIGHT FOOT 3V, Modifiers: 26 , [id number] X-RAY EXAM OF LEFT FOOT 3V, Modifiers: 26 , [id number] TRIM SKIN LESIONS, OVER 4, Modifiers: XS * Preventive Medicine: Counseling: D iscussion: - 04: Office or other outpatient visit for the evaluation and management of a new patient, which required a medically appropriate history and/or examination and MODERATE level of DECISION MAKING for: 1 OR MORE CHRONIC PROBLEM(S) THATS WORSENING, 2 STABLE CHRONIC PROBLEMS, A NEWLY DIAGNOSED PROBLEM WITH UNCERTAIN PROGNOSIS, AN ACUTE COMPLICATED INJURY WITH MULTIPLE TREATMENT OPTIONS, OR AN ACUTE PROBLEM WITH ACCOMPANYING SYSTEMIC SYMPTOMS, THAT POSE(S) A MODERATE RISK OF MORBIDITY. THIS CONDITION MAY ALSO INCLUDE RX DRUG MANAGEMENT, OR A DECISON FOR MINOR SURGERY. The visit on the day of the encounter encompassed interpreting the data and educating the patient as to the nature of their condition, treatment options available according to their individual PMH, meds, allergies, and overall health/living conditions, as well as any potential risks or complications that may occur from a failure to adhere to, and participate in, the recommended course of therapy. The discussion included a complete verbal, and/or written explanation of the examination results, any x- rays taken, the proposed diagnosis, and outline of the treatment plan. A schedule for future care needs was also explained. The patient verbalized an understanding of the instructions at this time and agreed to be an active participant in their treatment. If the patient should think of any questions or concerns after the visit, I have encouraged the patient to call the office. A rthritis: T he patient was counseled on the various etiologies for their Arthritis including genetic, history of injury or trauma, abnormal foot biomechanics leading to excessive joint wear, and use/overuse. We discussed the various treatment options from no treatment, to topical analgesics such as Biofreeze gel, Aspercream, Voltaren gel, Lidoderm patches, CBD oils, THC creams, and Custom-compounded topical cream preparations to natural oral products such as Glucosamine Sulfate/Chondroitin/MSM/Collegen to analgesic Tylenol, to anti-inflammatory medications such as Ibuprofen/Naproxen, and the use of oral steroids if needed. Cardiac, Kidney, and GI issues were discussed RE: potential complications of oral anti-inflammatories. We discussed several other treatment options consisting of accom shoes, supportive innersoles, AFO bracing/support, cortisone injection therapy, and surgical resection of the arthritic joint(s) or fusion reconstruction if necessary. We discussed the advantages and disadvantages of conservative (vs) surgical treamtents including pain relief, improved function/activities of daily life, return to exercise to failure, expense, systemic complications, infection, [id number], prolongued postop course. Patient questions re: the various treatment options available, their successes and potential failures, and product safety and standards engineer effects were discussed and the answers were verbally confirmed understood. B ioMech.: I discussed the Pts foot biomechanics with them and how it relates to their problem. A t Risk Diabetic/ASO/PVD Footcare: T he patient was advised against self nail/callus care due to inherent risks for infection, loss of limb/life given , diabetes, neuropathy. D igital Surgery: D igital surgery was discussed with the patient, We elected to try conservative treatment at the present time, due to the patients medical history and increased asssociated post-operative risks. D igital Treatment: H T- I explained to the patient the possible etiologies of Hammertoes, including genetics/foot type/shoegear/activity level/exercise routine and the risks/benefits of all the different treatment options for their pain including: No treatment at all, Rest, Ice, New/supportive/wider/deeper Shoegear, Digital Padding/Strapping/Taping/Bracing/Gel protective sleeves, Foot/Ankle AFO Bracing, Stretching exercises, Deep Tissue Massage, Arch support/shoe inserts with splay metatarsal padding, and Custom orthoses. I insisted that any digital devices be removed daily and not worn overnight for safety. The patient is to carefully examine the toes daily for any skin irritation while using any splinting or padding device. The advantages and disadvantages of each option were discussed and the patients questions re: shoegear, padding, custom vs prefabricated inserts, activity level, and consistency in home treatment regimens for optimal success were answered to their verbally confirmed satisfaction. O rthotics: I explained to the patient the benefits of OT use. I explained that orthoses are medically necessary to decrease the foot pain through proper mechanical control, support of their foot, Rx OT refurbishment. S valerie Gear Counseling: S VALERIE Rx - The patient was counseled in great detail on their muscoloskeletal foot and toe deformities which coincided with the dermatological presentations visualized on exam. We discussed how their deformities put the integrity of their feet at risk for potential pedal complications which makes the accomidative diabetic shoes and cutomizable inserts medically necessary. We discussed the different shoe and insert treatment types and options, as well as the important advantages for adhering to regularly wearing these accomidative devices daily. The patient was made aware of the fact that a failure to abide by these recommedations may be deleterious to their foot health as they are able to prevent many pedal complications such as skin irritation, skin ulceration, infection, and even loss of toe/foot/leg/or life. Time was also spent with the patient dispensing and discussing proper diabetic footcare techniques including daily skin moisturization, daily foot inspection for any interruption in skin integrity including open lesions, or sign of infection such as redness/malodor/drainage/swelling. Also discussed and recommended were procedures regarding daily shoe inspection for the presence of internal foreign bodies as well as any visualized irregular shoe or insert wear. Patient questions re: shoes, inserts, and self foot inspections were answered to their satisfaction as the patient verbally confirmed a full understanding of the above information. A Rx for Extra Depth Orthopedic Shoes with 3 pair of custom heat-molded inserts was dispensed. T janet Bowden: T he patient was counseled on the diagnosis, potential etiologies, and treatment options for their skin condition. We discussed the risks and benefits of each option from performing no treatment, to utilizing OTC topical skin creams, prescription topical creams, customized compounded topical medications, and, if necessary, to utilize oral antifungal therapy. We discussed the advantages and disadvantages of each possible treatment and importance for adherence to all the recommended therapies for optimum success and avoid potential complications such as open sore/infection/possible hospitalization. We discussed the potential effectiveness of each topical preparation as well as each ones possible side effects and/or patient medication interactions if oral therapy is selected. Patient questions re: the advantages and disadvantages of each treatment choice, medication use/dosage, successful outcomes, and application consistency were reviewed and the patient verbalized that all answers were clearly understood. The patient was told they can help alleviate symptoms by utilizing moisture absorbant innersoles with activated charcoal and baking soda, applying antifungal sprays daily, aerating toe web spaces at night by putting cotton or lambs wool between the toes, alternating shoe gear daily if possible so they can dry out, changing socks at least once during the day, wearing well-ventilated shoes or sandals. The patient has decided to apply antifungal skin creams to their feet as directed. Rx was sent to their pharmacy at the time of visit. X -rays: D iscussed and reviewed the X-rays with the patient. We discussed how the findings relate to the patients symptoms/complaints. Answered any and all questions.. Screening/Special Tests: F all Risk Screening: N o falls in the past year F ALLS: Screening for Future Fall Risk Have you had any falls with injury in the past year? N o * Follow Up: 3 Months * Images: * Sign off status: Completed true * Provider: Violet Horne, DPPramod Date: 07/09/2024 Generated for Lupe colón/Vania/Lizz on: 07/10/2024 09:44 AM EST History and Physical Notes * HPI (History of Present Illness) Category Sub-Category Detail Notes Category Not es Toe pain Location: B/L feet Duration: several years Course: worse Aggravated by: shoes, any pressure Treatments: change in shoes Skin problems Nature: scaling , redness Location: B/L Duration: several days Course: worse Treatments: Topical OTC antifung al powder/cream has not relieved condition At Risk footcare Pt States Last PCP Visit: Date:: 02/29/20 25 Foot Pain Nature: aching, stiffness, throbbing , tenderness Location: B/L Duration: several years Onset: gradual Course: worse Aggravated: standing, walking, s hoes Treatments: rest/alter normal da elias activity, change in shoes, Custom orthotics Examination Category Sub-Category Detail Notes Category Not es Neurological SENSORY: Neurological exa m demonstrates a loss of protective sensation by an absence of tested sensitivity to 5.07 Mckinney-Roselia monofilament at 2 or more sites out of 5 total locations, each foot Dermatologic SKIN FINDINGS: Skin shows sign( s) of, erythema, scaling, in a moccasin fashion, no fissure(s) present, B/L , Skin exam reveals Keratotic lesion(s) located at , Medial plantar, IPJ, TA, T5, SUB MTH (s), 1, 5, B/L, Plantar Heel(s), B/L Orthopedic GAIT ABNORMALITY: Pronated, abdu cted angle and base of gate FOOT MORPHOLOGY: Rigid medial/plantar protrusion of Midfoot at area of Navicular tuberosity, LEFT, Pes Planus structure, Semi-rigid, B/L, Prominent, painful 1st Met-Cuneiform joint without inflammation, B/L FOOTWEAR EVALUATION: Non-Diabetic with n o OT DIGITAL DEFORMITIES: Digital contracture , PIPJ, 2-5 B/L, incompl-reducible to push-up test, no over, nor underlapping, there is evidence of shoe producing skin irritation MUSCLE STRENGTH: 5/5 all groups in a symmetrical fashion, B/L General Examination GENERAL APPEARANCE: Reveals a pleasant, alert, well nourished, well-developed, well hydrated individual, who demonstrates proper attention to hygiene/body habitus, and is in no acute distress, Pt serves as own historian for office visit today FOOT EXAM: Lower Extremity Neurological Exa m performed:: Yes Visual exam of foot performed:: Yes Date: 05/08/2025 Sensory testing performed:: sensations d iminished ORIENTED: person, place, and t wilfrido Footwear Evaluation Footwear Evaluation performe d:: Yes Ophthalmology Referral DIABETES EYE EXAM Procedure Perform ed:: Yes Date of Exam Performed: 01/19/2025 Diabetic Retinopathy Screening:: Yes Findings of Diabetic Eye Exam:: no retin opathy Vascular DP PULSES (B): 3/4, B/L PT PULSES (B): 3/4, B/L CAPILLARY FILL TIME: immediate, all digi ts, B/L TEMPERTURE GRADIENT (C): decreased, cool to cool, proximal to distal, B/L TROPHIC CONDITION-TEXTURE/ELASTICITY/TURGOR/HAIR GROWTH (B): decreased, with sparse to absent hair gr owth, B/L EDEMA (C): absent, B/L PIGMENTATION: normal, B/L Nails NAILS are: Elongated, overg rown, dystrophic, lytic, greater than 3mm thick, discolored and friable with crumbly malodorous subungual debris , TA, T1, T2, T3, T4, T5, T6, T7, T8, T9 X-Rays - IMAGING REPORT Findings: mild gen eralized decrease in bone density, navicular/cuneiform plantar subluxation with anterior cyma line, eburnation dorsal 1st MT/Cun. jt, dorsal degenerative changes of the tarsal joints Fracture: Negative fractures i dentified Signs of Osteomyelitis Absent Digits: show asymmetrical braulio int space narrowing at the PIPJ consistent with clinical finding of hammertoe deformity Foot structure: reveals excess prona tion with, anterior break in cyme line, increased talar declination, decreased calcaneal inclination L>R Views: 3 views of Foot, B/L , AP, LAT, LO, Taken by a trained Podiatric Fermenter Champagne ( EF) Clinical Indication(s): Evaluate Biomech anical Deformity
--- NOTE | 2025-05-09 09:36 | MHC.OFFVIS ---
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 Required: No Allergies latex (LATEX) Allergy (Intermediate, Verified 05/09/25 09:38) RASH lisinopril Allergy (Intermediate, Verified 05/09/25 09:38) Angioedema PFSH Medical History Urinary frequency Vitamin B12 deficiency Vitamin D deficiency Diabetes mellitus Diabetic neuropathy Elevated LFTs Pure hypercholesterolemia Obesity (BMI 30-39.9) Benign essential hypertension Fatty liver Arthritis GERD (gastroesophageal reflux disease) Current use of anticoagulant therapy Depression IBS (irritable bowel syndrome) HTN (hypertension) Paroxysmal atrial fibrillation Surgical History Hx of eye surgery H/O colonoscopy History of esophagogastroduodenoscopy (EGD) Hx of tonsillectomy History of cardiac radiofrequency ablation Hx of sinus surgery Family History Father Diabetes Mother No problems noted. 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
--- OUTSIDE RECORDS SUMMARY | 2025-05-09 09:44 | XMS_ITS | Clinical Summary ---
Author Organization [facility] r Address [address] [place] [address] Phone Care Team Providers Care Lamp Cleaner Street Light Name Role Phone Valentín Laguerre MD Primary Care Provider [phone] Allergies Active Allergy Reactions Criticality Noted Date Comments Latex Rash Social History Tobacco Use Types Packs/Day Years Used Date Smoking Tobacco: Never Assessed Sex and Gender Information Value Date Recorded Sex Assigned at Not on file Legal Sex Male 3:38 AM EDT Gender Identity Not on file Sexual Orientation Not on file Last Filed Vital Signs Vital Sign Reading Time Taken Comments Blood Pressure - - Pulse - - Temperature - - Respiratory Rate - - Oxygen Saturation - - Inhaled Oxygen Concentration - - Weight 88.5 kg (195 lb) 05/07/2014 12:01 AM EST Height 182.9 cm (6') 05/07/2014 12:01 AM EST Body Mass Index 26.45 05/07/2014 12:01 AM EST Plan of Treatment Not on file Care Teams Lamp Cleaner Street Light Relationship Specialty Start Date End Date Valentín Laguerre MD [address] [place] [address] [place] [address] PCP - General Family Medicine 03/17/25
--- OUTSIDE RECORDS SUMMARY | 2025-05-09 09:44 | XMS_ITS | Patient Health Record ---
Author Organization [facility] Address [address] [place] [address] Care Team Providers Care Head Cleaning Porter Name Role Phone Cuong Morris MD Primary Care Provider Jayson Hummel [phone] Allergies Allergen (clinical drug ingredient) Drug/Non Drug Allergy documented on EMR Reaction Allergy Type Onset Date Status Latex Latex Unknown Allergy Active Results Component Value Reference Range Notes US abdomen comp w elastograp hy (Not yet reviewed by provider) Interpretation: Performing Lab: Notes/Report: [address] [address] Ultrasound Report Signed Patient: June Tidwell MR#: [id number] : 1955 Acct:[id number] Age/Sex: 69 / M ADM Date: 04/13/25 Loc: HO.US Attending Dr: Roxana Willett [facility] Ordering Physician: Jayson Carlson MD Date of Service: 04/13/25 Procedure(s): US abdomen comp w elastography Accession Number(s): [id number] cc: Cuong Morris MD; Jayson Carlson MD [...] by: Jayson Gomes MD 04/13/2025 09:11 AM [facility] Dictated By: Jayson Gomes MD Signed By: <Electronically signed by Jayson Gomes MD in OV> 04/13/25910 DD/ 1 TD/TT: 04/13/2554 Airborne Operations Manager: Reason For Referral No Information Medications Medication [...] Status Risk Notes Problem Colon cancer screening (014776037) Colon cancer screening (Z12.11) Active confirmed Problem History of adenomatous polyp of colon (421458377) History of adenomatous polyp of colon (Z86.010) Active confirmed Problem Change in bowel habit (91533758) Change in bowel habit (R19.4) Active confirmed Problem Change in bowel habit (23022989) Change in bowel habits (R19.4) Active confirmed Problem Elevated liver enzymes level (195586988) Elevated liver enzymes (R74.8) Active confirmed Problem Fatty liver (930523923) Fatty liver (K76.0) Active confirmed Problem Gastritis (4318624) Gastritis (K29.70) Active confirmed Problem Gastroesophageal reflux disease (592518487) GERD (gastroesophageal reflux disease) (K21.9) Active confirmed Problem Fatigue (49592209) Fatigue, unspecified type (R53.83) Active confirmed Problem Irritable bowel syndrome (35974779) Irritable bowel syndrome with both constipation and diarrhea (K58.2) Active confirmed Problem Diverticulosis of colon (535401464) Diverticulosis of colon (K57.30) Active confirmed Problem 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) Active confirmed Vital Signs Blood pressure diastolic 77 mm Hg 11/16/2024 Height 72.50 in 11/16/2024 Blood pressure systolic 111 mm Hg 11/16/2024 Weight 234 lbs 11/16/2024 BMI 31.3 kg/m2 11/16/2024 Encounters Encounter Location Date Provider Diagnosis [facility] [address] [place] [phone] 11/16/2024 Jayson Carlson Colon cancer screeni ng Z12.11 ; Fatty liver K76.0 ; Irritable bowel syndrome with both constipation and diarrhea K58.2 and History of adenomatous polyp of colon Z86.010 [facility] [address] [place] [phone] 07/25/2024 Jayson Carlson Assessments Encounter Date Diagnosis [...] questions I can be of assistance with. uJne was very comfortable with this plan. Thank [...] Antibody 03/27/2022 US abdomen comp w elastography US abdomen comp w elastography 5 Future Test Test Name Order Date COLONOSCOPY 07/01/2011 COLONOSCOPY 11/04/2016 UPPER GI ENDOSCOPY 03/30/2021 COLONOSCOPY 09/16/2021 Next Appt Details Provider Name:Jayson Carlson , 11/20/2025 09:30:00 AM, [address], [place], [address], Insurance Providers Payer Name Payer Address Payer Phone Subscriber Number Group Number Insured Name Patient Relationship to Insured Coverage Start Date Coverage End Date [facility] [address] [place] [address] [id number] JUNE TIDWELL Self - patient is the [...]
--- OUTSIDE RECORDS SUMMARY | 2025-05-09 09:44 | XMS_ITS | Patient Health Record ---
[facility] Address [address] [place] [address] Care Team Providers Care Contract Administration Manager Name Role Phone Arturo CHERRY, Cuong Primary Care Provider María Martinez Unavailable [phone] ColeenLavelleen Unavailable [phone] Allergies Allergen (clinical drug ingredient) Drug/Non Drug Allergy documented on EMR Reaction Allergy Type Onset Date Status Latex Latex (uncoded) Unknown Allergy Acti ve Results Component Value Reference Range Notes HEMOGLOBIN A1C (GLYCOHEMOGLO BIN) Reviewed date:05/08/2025 08:35:26 AM Interpretation: Performing Lab: Notes/Report: HEMOGLOBIN A1C % (HH) 6.0 Reason For Referral No Information Medications Medication [...] morning meal Orally Once a day Active Losartan Potassium 25 MG 1 tablet Orally Once a day Active Metoprolol Succinate 50 MG 1 capsule Ora lly Once a day Active Atorvastatin Calcium 10 MG 1 tablet Orally Once a day Active Vitamin B12 1000 MCG 1 tablet Orally Once a day Active Apixaban 5 MG as directed Orally Active Ketoconazole 2 % 1 application Apply a thin layer to externally to feet, even between toes Twice a day; Duration: 30 days Active Januvia 100 MG 1 tablet Orally Once a day Active Extra Depth Orthopedic Shoes (1 Pair) with Customized Heat Molded Multidensity Innersoles (3 Pair) Dx: NIDDM/Polyneuropathy (E11.42), Hammertoe Foot Deformity (M20.41,M20.42), Preulcerative Skin Lesion(s) (L85.1); Duration: 365 days 05/08/2025 Active amLODIPine Besylate 10 MG 1 tablet Orally Once a day Active Flecainide Acetate 100 MG 0.5 tablet Ora lly every 12 hrs Active Furosemide 20 MG 1 tablet Orally Once a day Active Immunizations Vaccine Route Administration Date Status Comme nts Influenza Unknown 02/16/2025 Administered Social History Tobacco Use: Social History Observation [...] Problem Status W/U Status Risk Notes Problem Acquired hammer toe of right foot (8753233099956824 ) Other hammer toe(s) (acquired), right foot (M20.41) Active confirmed Problem Acquired hammer toe of left foot (0111891092156972 ) Other hammer toe(s) (acquired), left foot (M20.42) Active confirmed Problem Polyneuropathy due to type 2 diabetes mellitus (511109523) Type 2 diabetes mellitus with diabetic polyneuropathy (E11.42) Active confirmed Problem Localized, primary osteoarthritis of the ankle and/or foot (266304950) Primary osteoarthritis, right ankle and foot (M19.071) Active confirmed Problem Localized, primary osteoarthritis of the ankle and/or foot (314815516) Primary osteoarthritis, left ankle and foot (M19.072) Active confirmed Vital Signs Blood pressure diastolic 70 mm Hg 05/08/2025 Height 6 ft 1in in 05/08/2025 Blood pressure systolic 130 mm Hg 05/08/2025 Weight 222 lbs 05/08/2025 BMI 29.29 kg/m2 05/08/2025 Encounters Encounter Location Date Provider Diagnosis [facility] [place] [address] [place] [address] 05/08/2025 Ligia Horne Type 2 diabetes mellitus [...] foot [pes planus] (acquired), left foot M21.42 [facility] [address] [address] 05/08/2025 María Capellan [facility] [address] 10/31/2024 María Capellan [address] [address] 01/09/2025 María Capellan [address] [phone] 02/27/2025 María Capellan Assessments Encounter Date Diagnosis (ICD Code) Assessment [...] foot (ICD-10 - M21.42) Plan Of Treatment Pending Test Test Name Order Date X ray : Foot, left 3V 05/08/2025 X ray : Foot, right 3V 05/08/2025 Next Appt Details Provider Name:Ligia chiang, 08/07/2025 09:00:00 AM, [address] [place], [address], Insurance Providers Payer Name Payer Address Payer Phone Subscriber Number Group Number Insured Name Patient Relationship to Insured Coverage Start Date Coverage End Date [facility] 65 Medicare Preferred [address] [place] [address] [phone] [id number] Ori Tidwell Self - patient is the insured Medical (General) History Medical History History ICD Code Arthritis covid-19 Depression Diabetic Heart disease High Blood Pressure nerve disorder Psoriasis/eczema raynauds disease Reflux ( GERD) Measles Mumps Chicken pox Surgical History Surgery Date(Month/Year) eye surgery nose surgery cryoablation
--- NOTE | 2025-05-09 09:48 | MHC.OFFVIS ---
Intake Visit Reasons: US/PSA/UA Intake Note: Patient is present for US/PSA/UA IMAGIN04/14/25 PSA:1.33 Urology Medication:VITAMIN B12 Antibiotic Allergy:NONE Blood Thinner:APIXABAN Security Assurance Analyst Required: No Allergies latex (LATEX) Allergy (Intermediate, Verified 05/09/25 10:56) RASH lisinopril Allergy (Intermediate, Verified 05/09/25 10:56) Angioedema Medication List - Last Reconciled 05/09/25 by GORDON Luque- acetaminophen 500 mg PO Q6H amlodipine 10 mg PO DAILY apixaban (Eliquis) 5 mg PO BID 90 days atorvastatin 10 mg PO QPM 90 days celecoxib 200 mg PO DAILY 90 days cholecalciferol (vitamin D3) 50 mcg PO DAILY 90 days cyanocobalamin (vitamin B-12) 1,000 mcg PO .weekly 90 days epinephrine (EpiPen) 0.3 mg (0.3 mL) IM Q4H PRN fesoterodine ER 4 mg PO DAILY 30 days flecainide 100 mg PO Q12H furosemide 20 mg PO DAILY gabapentin 800 mg PO TID 30 days losartan 25 mg PO DAILY metformin ER 500 mg PO DAILY 90 days metoprolol succinate ER 50 mg PO DAILY omeprazole 20 mg PO DAILY 90 days sertraline 50 mg PO DAILY sitagliptin phosphate (Januvia) 100 mg PO DAILY 90 days tirzepatide (Mounjaro) 2.5 mg (0.5 mL) subcut QWEEK 4 weeks HPI Comments Details: Ori is a 69-year-old male patient of Dr. Morris. He has a past medical history of vitamin B12 deficiency, vitamin-D deficiency, diabetes, diabetic neuropathy, hypercholesteremia, obesity, hypertension, arthritis, GERD, depression, IBS, hypertension, and paroxysmal AFib. He presents to the office today for follow-up of his lower urinary tract symptoms. Of note, patient was seen approximately 4 months ago at which time a retroperitoneal ultrasound and PSA were ordered for further assessment evaluation. These results were reviewed and communicated with the patient today. 03/18 ultrasound. No postvoid residual. Slightly enlarged prostate gland measuring 37 mL. Labs are as follows: A1c: 09/06 6.6, 03/09 6.6, 06/10 7.5, 10/08 7.8, PSA: 04/10 1.3 During last office visit we did discussed potential causes of lower urinary tract symptoms as well as further treatment options and risks and benefits of these treatment options. He was started on Gemtesa however, in discussion with the patient today he reports no improvement in urinary urgency and frequency. He otherwise denies incontinence, nocturia, hematuria, dysuria, foul smelling urine, flank pain, fever, and or chills. He had previously been on Flomax for over a year however did not find any improvement in lower urinary tract symptoms with this medication either. We did review again today bladder triggers and irritants. In office urinalysis results with the patient today. We did discuss importance of management and diabetes for improvement in lower urinary tract symptoms for improvement lower urinary tract symptoms as well as overall health and well-being. He does discuss his recent follow-up with meal packer. All questions were answered. He otherwise offers no other issues or concerns at this time. [facility] Medical History Urinary frequency Vitamin B12 deficiency Vitamin D deficiency Diabetes mellitus Diabetic neuropathy Elevated LFTs Pure hypercholesterolemia Obesity (BMI 30-39.9) Benign essential hypertension Fatty liver Arthritis GERD (gastroesophageal reflux disease) Current use of anticoagulant therapy Depression IBS (irritable bowel syndrome) HTN (hypertension) Paroxysmal atrial fibrillation Surgical History Hx of eye surgery H/O colonoscopy History of esophagogastroduodenoscopy (EGD) Hx of tonsillectomy History of cardiac radiofrequency ablation Hx of sinus surgery Family History Father Diabetes Mother No problems noted. 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 Current occupational exposures/hazards: No Cognitive needs: No Hearing needs: No Vision needs: No Review of Systems Const All systems reviewed & are unremarkable except as noted in HPI and below Physical Exam Const General: cooperative, healthy appearing, comfortable, no acute distress, well developed, alert and awake Orientation/consciousness: patient oriented x3 Limitations: no limitations HEENT Head: Yes normal to inspection, Yes normocephalic and Yes atraumatic Ears: hearing grossly normal bilaterally Eyes General: appearance normal, both eyes and all related structures Neck Neck: Yes normal visual inspection and Yes trachea midline Chest Chest palpation & inspection: normal inspection of the chest Resp Effort & Inspection: normal respiratory effort and able to speak in complete sentences Cardio Rate: regular rate GI Inspection: Yes normal to inspection General: Yes no CVA tenderness Back/Spine/Pelvis Back: no CVA tenderness Skin General skin exam: no rashes or lesions noted Neuro General: patient oriented x3 Extrem General: Yes normal to inspection Psych Appearance: grossly normal and well kempt Mental Status: mental status grossly normal Speech and movement: Normal speech and movement present and Clear speech present Affect: normal affect Attitude: cooperative Thought process: Normal thought process present Thought content: Normal thought content present Insight: Fair insight present (Psych) Judgement: Fair judgement present (Psych) Results AMB Urinalysis, Automated UA Leukoctes 0 Emerson/uL Last Edit by Rodríguez Adamson CCM on 05/09/25 10:13 UA Nitrite Negative Last Edit by Rodríguez Adamson CCM on 05/09/25 10:13 UA Urobilinogen 0.2 mg/dL Last Edit by Rodríguez Adamson CCM on 05/09/25 10:13 UA Protein 0 mg/dL Last Edit by Rodríguez Adamson CCM on 05/09/25 10:13 UA pH 6.5 Last Edit by Rodríguez Adamson CCM on 05/09/25 10:13 UA Blood 0 [place]/uL Last Edit by Rodríguez Adamson CCM on 05/09/25 10:13 UA Specific [place]ldon 1.015 Last Edit by Rodríguez Adamson CCM on 05/09/25 10:13 UA Ketone Negative Last Edit by RILEY Erickson on 05/09/25 10:13 UA Bilirubin 0 mg/dL Last Edit by Rodríguez Adamson CCM on 05/09/25 10:13 UA Glucose 0 mg/dL Last Edit by Rodríguez Adamson CCM on 05/09/25 10:13 Results Reviewed Results Reviewed: Laboratory Last Values Urine pH (Auto) 6.5 05/09/25 09:52 Specific [place]ld[place] (Auto) 1.015 05/09/25 09:52 Urine Protein (Auto) 0 mg/dL 05/09/25 09:52 Glucose (UA)(Auto) 0 mg/dL 05/09/25 09:52 Urine Ketones (Auto) Negative 05/09/25 09:52 Urine Blood (Auto) 0 [place]/uL 05/09/25 09:52 Urine Nitrite (Auto) Negative 05/09/25 09:52 Urine Bilirubin (Auto) 0 mg/dL 05/09/25 09:52 Urine Urobilinogen (Auto) 0.2 mg/dL 05/09/25 09:52 Leukocyte Esterase (Auto) 0 Emerson/uL 05/09/25 09:52 Date of Service: 04/14/25 Procedure(s): US bladder FINDINGS: Sonographic examination of the urinary bladder was performed before and after voiding. Before voiding, the urinary bladder measured 6 x 7.3 x 7.3, centimeters for an estimated volume of 166 mL. After voiding, the urinary bladder measured 4.2 x 1.6 x 3.6 centimeters, for an estimated volume of 13 mL. No intrinsic bladder abnormality is identified. Bilateral ureteral jets are identified. The prostate gland is slightly enlarged and measures 4.9 x 3.6 x 4 cm, volume 37 mL. IMPRESSION: Normal bladder ultrasound. No post void residual. Slightly enlarged prostate gland. Assessment & Plan Assessment & Plan (1) Urinary frequency: Code(s): R35.0 - Frequency of micturition Category: Medical (2) Urinary urgency: Code(s): R39.15 - Urgency of urination Category: Medical (3) Lower urinary tract symptoms: Code(s): R39.9 - Unspecified symptoms and signs involving the genitourinary system Category: Medical (4) Benign prostatic hyperplasia with urinary frequency: Code(s): N40.1 - Benign prostatic hyperplasia with lower urinary tract symptoms; R35.0 - Frequency of micturition Category: Medical (5) Enlarged prostate: Code(s): N40.0 - Benign prostatic hyperplasia without lower urinary tract symptoms Category: Medical Plan In office urinalysis results reviewed with the patient today; as noted above. Most recent PSA results reviewed with the patient today; as noted above. Recent bladder ultrasound results reviewed with the patient today as noted above. We did discussed potential causes of lower urinary tract symptoms as well as further treatment options and risks and benefits of these treatment options. We did discussed at length the importance of management and diabetes for improvement in urological health as well as overall health and well-being. We discussed bladder triggers and irritants. Stop Gemtesa. We did discussed in office cystoscopy versus urodynamics for further assessment evaluation Start Toviaz as discussed and prescribed. Follow-up in 1-3 months with [facility]; or sooner with any issues, concerns, and or questions. Orders: Orders AMB Urinalysis Automated Today Z13.9 - Encounter for screening, unspecified Medications: New fesoterodine ER 4 mg PO DAILY 30 tabs 3RF 30 days N30.40 - Irradiation cystitis without hematuria Patient Instructions: The patient had an opportunity to ask questions regarding the treatment plan. All questions were answered. Physical exam, labs, and imaging were discussed and reviewed in detail. As well as risks, benefits, and discussion of treatment choices. No major barriers to understanding were identified. The patient expressed understanding and agreement with the above treatment plan. The patient was made aware they should contact our office by phone for worsening of their current condition, the appearance of new symptoms, or with any questions or concerns. Compliance is encouraged with any medications and follow up testing that is ordered. It is a privilege to be allowed the opportunity to participate in? your urological care.? Again, if you have any questions or concerns If you have any questions or concerns please do not hesitate to contact me. The office is [phone]. This note is constructed using voice recognition software. While every effort has been made to ensure accuracy coding manager errors may have been included. Yours sincerely, LANA Luque Coding Level of Care Code Est Pt Level 4 (19496) Add On Problem Visit Only Diagnoses Urinary frequency R35.0 Urinary urgency R39.15 Lower urinary tract symptoms R39.9 Benign prostatic hyperplasia with urinary frequency N40.1; R35.0 Enlarged prostate N40.0
== END 2025-05-09 10:25 | disposition home or self-care (01) ==
LOC: HO.HUSH 09:39
PROVIDERS: PCP Internal Medicine; Visit Provider Nurse Practitioner Family
DX: R35.0 Frequency of micturition (principal); R39.15 Urgency of urination; R39.9 Unspecified symptoms and signs involving the genitourinary system; N40.1 Benign prostatic hyperplasia with lower urinary tract symptoms; N40.0 Benign prostatic hyperplasia without lower urinary tract symptoms; Z13.9 Encounter for screening, unspecified
CPT/HCPCS: 99214; G2211

== ENCOUNTER → 2025-05-09 09:38 | Outpatient (BNVA) | payer MEDICARE, SELFPAY | PROVIDERS: PCP Internal Medicine; Visit Provider Nurse Practitioner Family | DX: N40.1 Benign prostatic hyperplasia with lower urinary tract symptoms (principal); R35.0 Frequency of micturition; R39.15 Urgency of urination; N30.40 Irradiation cystitis without hematuria | CPT/HCPCS: 81003; 99212 ==